=== PATIENT | male | born 1950 | race Caucasian/White ===

== ENCOUNTER 2025-02-03 21:42 | Inpatient (IN) | payer MEDICARE, SELFPAY ==
--- NOTE | ~2025-02-03 | US_ITS ---
US abdomen limited INDICATION: Elevated liver function tests PROCEDURE: Realtime right upper abdominal ultrasound. COMPARISON: No prior studies for comparison. FINDINGS: The pancreas is normal without focal mass or pancreatic ductal dilation. Liver echotexture is increased and somewhat heterogeneous. There is a nodular liver surface, compatible with cirrhosis There is normal directional flow in the portal vein. The gallbladder is normal without stones, gallbladder wall thickening or pericholecystic fluid. Comm on bile duct measures 4 mm. No sonographic Hunter's sign. IMPRESSION: 1: Cirrhosis of the liver. Reviewed, dictated and finalized at location [] IMPRESSION: 1: Cirrhosis of the liver.
--- NOTE | ~2025-02-03 | XR_ITS ---
XR chest 1V portable Ordering provider: Emily Troy APRN History: 74 years Male with . L arm pain FEVER . Comparison: None. FINDINGS: MEDIASTINUM: The cardiac silhouette is not enlarged. LUNGS: No infiltrates, effusions or pneumothorax. OTHER: No free air under the diaphragm. Degenerative changes of the spine. IMPRESSION: No acute cardiopulmonary pathology. Reviewed, dictated and finalized at location A.
--- NOTE | ~2025-02-03 | XR_ITS ---
XR foot LT min 3V Ordering provider: Emily Troy APRN History: . L 2nd and 3rd digit injury . Comparison: None. FINDINGS: BONES: No acute fracture or dislocation. JOINT SPACES: Normal. No tarsal coalition. SOFT TISSUES: Normal. IMPRESSION: No acute osseous abnormality left foot. Reviewed, dictated and finalized at location A.
--- OUTSIDE RECORDS SUMMARY | 2025-02-03 21:44 | XMS_ITS ---
Author Organization [facility] Address [address] [place] [address] Care Team Providers Care Energy Conservation Director Name Role Phone Ankush Sweeney MD Unavailable Unavailable David HAYWARD MD, Douglas Roblero Unavailable [phone] Pcp, Bella Roche Primary Care Provider Unav ailJanki Merino Unavailable QMM & AWV - Vibrance Status:Identified (Enrolling) Start date:01/25/2025 Enrollment reason:Identified using claims or encounter data Case Team Name Relationship Phone Janki Anaay(Responsible Staff) Care Coordinat ion Specialist [phone] Continued Care and Services Coordination
--- OUTSIDE RECORDS SUMMARY | 2025-02-03 21:44 | XMS_ITS | Clinical Summary ---
Author Organization [facility] Address [address] [place] [address] Care Team Providers Care Golf Technician Name Role Phone Ankush Sweeney MD Unavailable Unavailable David HAYWARD MD, Douglas Roblero Unavailable [phone] Pcp, Bella Medina Primary Care Provider Janki Boswell Unavailable Source Comments [facility],non-owned Affiliates and Associated Physician Practices is amultiple site organization consisting of ambulatory clinics and hospital sitesin [place], [place], [place] and [place]. This disclosure is being madepursuant to the Care Everywhere program and may not contain all information available regarding this patient. Last updated 18.[facility] Allergies Active Allergy Reactions Criticality Noted Date Comments Penicillins Swelling 03/26/2010 Medications * Be aware that medications may not be up to date on this document. Alwaysverify current medications with the patient. phenytoin ER (DILANTIN) 100 MG capsuleIndicati ons:Seizure disorder (HCC) Take 2 caps morning, 1 in afternoon, and 2 at night 150 Cap 5 01/31/2014 Active nitroglycerin (NITROSTAT) 0.4 MG tablet Dissolve 1 Tab under the tongue every 5 minutes as needed for Angina. 100 Tab 3 06/29/2014 Active Vitamin D3 (CHOLECALCIFERO L) 2000 UNITS capsule Take 1 (one) capsule by mouth once daily 06/02/2015 Active clorazepate (TRANXENE) 3.75 MG tablet Take 1 Tab by mouth 3 times daily 100 Tab 0 02/07/2016 Active triamcinolone acetonide (KENALOG) 0.1 % cream 09/14/2019 Active primidone (Mysoline) 250 MG tablet 07/22/2022 Active ezetimibe (Zetia) 10 MG tablet Take 1 (one) tablet by mouth once daily 90 tablet 3 04/17/2023 Active diclofenac sodium EC (Voltaren) 50 MG tablet TAKE 1 TABLET BY MOUTH TWICE DAILY 60 tablet 2 01/02/2024 Active aspirin (Aspirin) 81 MG chew tablet Take 1 (one) tablet by mouth nightly as needed for Pain Active atorvastatin (Lipitor) 80 MG tablet Take 1 (one) tablet by mouth at bedtime 90 tablet 4 09/08/2024 Active metoprolol tartrate IR (Lopressor) 50 MG tablet Take 1 (one) tablet by mouth once daily 90 tablet 3 10/26/2024 Active Active Problems Problem Noted Date Diagnosed Date 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 Torn medial meniscus 04/26/2016 Overview (04/26/2016): Spoke with pt to report MRI of left knee and provided pt with contact information for ortho and placed order. COMPLEX RADIAL OBLIQUE TEAR INVOLVING THE POSTERIOR HORN OF THE MEDIAL MENISCUS WITH MILD EXTRUSION OF THE BODY. 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 MULTIPLE SITES OF CARTILAGE TEARING INVOLVING THE PATELLA, DESCRIBED ABOVE. REACTIVE SUBCHONDRAL MARROW EDEMA WITHIN THE MEDIAL TIBIAL PLATEAU. Acute pain of left knee 04/23/2016 BMS to prox circ and SUJIT to mid LAD in 04/2016 Vitamin D deficiency 08/02/2014 Overview (08/02/2014): Vit D level was 18 on labs from Jul 2013. Hypercholesterolemia 08/31/2013 Porokeratosis 07/19/2013 Overview (07/19/2013): Has seen Dr. Artis Vivar and now Dr. Elizabeth Fisher for this condition. Currently on Topicort for steroid. Prostate cancer screening 07/19/2013 Screen for colon cancer 07/19/2013 Benign prostatic hyperplasia 07/19/2013 Overview (02/15/2017): Grade 1/3 on PE of 07/19/13. IMO Update 02/22/2017 Biceps strain 04/29/2013 Seizure disorder 04/03/2012 Overview (01/31/2014): Petit mal seizures per pt hx. Resolved Problems Problem Noted Date Diagnosed Date Resolved Date Partial epilepsy with impair ment of consciousness, intractable 04/30/2018 05/13/2021 Sprain of right wrist 10/23/20172020 Coronary artery disease invo lving pokagon heart 03/10/2017 05/13/2021 History of arthroscopy of le ft knee on 05-14-16 05/21/2016 05/13/2021 Swelling of left knee joint 04/23/2016 05/13/2021 Slipping, tripping and stumb ling without falling due to stepping on object, initial encounter 04/23/2016 05/13/2021 Overview (05/25/2016): IMO Updt 05/25/2016 URI (upper respiratory infection) 08/02/2014 01/04/2015 Need for Tdap vaccination 01/31/2014 Petit mal seizure status 01/31/2014 CAD (coronary artery disease) 07/19/2013 03/10/2017 Overview (07/19/2013): Sees Dr. Sweeney. Has two stents placed. Rt ant descending A and Lt main coronary A. Need for hepatitis C screening test 07/19/2013 01/31/2014 Triceps strain 04/29/2013 05/13/2021 Sprain of ligament of left ankle 03/12/2013 05/13/2021 Proximal circumflex BMS and mid LAD SUJIT in 200704/02/2012 10/03/2015 Contact dermatitis due to poison allie 03/26/2010 09/24/2017 Encounters Date Type Department Care Team Description 01/25/2025 Patient Outreach [facility] - Care Coordination [address] [id number] Janki Anaya from Last 3 Months Immunizations Immunization Administration Dates Next Due COVID PFIZER BIVALENT 12Y+ 30mcg/0.3ML Covid Pfizer primary monoval ent 12+ yr 0.3mL Purple cap 05/13/2021,10/24/2020,10/07/2020 PNEUMOCOCCAL PPSV23 11/13/2021 TDAP (7yrs+) 02/22/2021 Family History Medical History Relation Name Comments Heart Failure Brother 2 DC<55(male) Brother 3 stated one of h is brothers at age 35 with a heart attack DC<55(male) Brother 4 stated another brother at age 42 with a heart attack CAD (Coronary Artery Disease) Brother 5 another brother has 4 stents in his heart CAD (Coronary Artery Disease) Father Heart Failure Father DC<55(male) Father stated his fath er at age 42 with a heart attack Alzheimer's Disease Mother Cancer Sister 2 Relation Name Status Comments Brother 1 (Age 35) coronary t hrombosis Brother 2 Brother 3 Brother 4 Brother 5 Alive Father (Age 42) heart arthur ck Mother Sister 1 (Age 44) cancer Sister 2 Sister 3 Sister 4 Social History Tobacco Use Types Packs/Day Years Used Date Smoking Tobacco: Former Cigarettes 1 09/18/1996 - 08/02/2003 Cigars Smokeless Tobacco: Former Snuff Quit: 07/19/1977 Tobacco Cessation:Counseling Given: Not Answered Alcohol Use Standard Drinks/Week Comments Yes 1 (1 standard drink = 0.6 oz pur e alcohol) socially- seldom PHQ-2 Answer Date Recorded PHQ2 TOTAL SCORE 0 10/21/2022 Sex and Gender Information Value Date Recorded Sex Assigned at Male 03/23/2023 6:12 PM CDT Legal Sex Male 4:27 AM ELECTRICIAN SUPERVISOR [employer]ATION Gender Identity Male 03/23/2023 6:12 PM CDT Sexual Orientation Straight 03/23/2023 6: 12 PM CDT Occupation Industry Job Start Date Job End Date Retired, [employer] Not on file Not on file Not on file Last Filed Vital Signs Vital Sign Reading Time Taken Comments Blood Pressure 136/76 07/20/2024 2:06 PM ELECTRICIAN SUPERVISOR [employer]ATION Pulse 66 07/20/2024 2:06 PM ELECTRICIAN [employer] Temperature 36.5 C (97.7 F) 07/20/2024 2:06 PM ELECTRICIAN SUPER[employer]OR [employer]ATION Respiratory Rate 18 02/09/2023 3:37 PM CDT Oxygen Saturation 95% 07/20/2024 2:06 PM ELECTRICIAN [employer] Inhaled Oxygen Concentration - - Weight 107.3 kg (236 lb 9.6 oz) 07/20/2024 2:06 PM ELECTRICIAN [employer] Height 177.8 cm (5' 10) 05/12/2024 9:29 AM CDT Body Mass Index 33.95 05/12/2024 9:29 AM CDT Plan of Treatment Upcoming Encounters Date Type Department Care Team (Late st Contact Info) Description 07/25/2025 1:40 PM ELECTRICIAN SUPER[employer]OR [employer] Office Visit [facility] [id number] [place] [address], [address] [address] [place] [address] [address] Health Maintenance Due Date Last Done Comments ZOSTER VACCINE (1 of 2) 1998 PROSTATE CA SCREENING 05/04/2022 05/04/2021 , 04/21/2020, 09/24/2017, Additional history exists PNEUMOCOCCAL VACCINE 50+ (2 of 2 - PCV) 11/13/2022 11/13/2021 MEDICARE AWV 12 MONTHS 07/24/2023 07/24/2022, 05/04/2021, 04/21/2020 Respiratory Syncytial Virus (RSV) Vaccine Pt: or over 60 yrs (1 - 1-dose 75+ series) 2023 COVID-19 VACCINE ( - season) 2024 07/24/2022, 05/13/2021, 10/24/2020, Additional history exists DEPRESSION SCREENING 08/25/2024 10/21/2022, 07/24/20 22 INFLUENZA VACCINE (Season Ended) 2025 SCREENING FOR DIABETES 12/25/2027 5, 05/04/2021, 04/21/2020, Additional history exists DTAP/TDAP/TD VACCINES (2 - Td or Tdap) 02/22/2031 02/22/2021 HEPATITIS C SCREENING Completed 07/26/2013 HEPATITIS B VACCINE Aged Out No longe r eligible based on patient's age to complete this topic HIB VACCINE Aged Out No longer eligi ble based on patient's age to complete this topic HPV VACCINE Aged Out No longer eligi ble based on patient's age to complete this topic MENINGOCOCCAL (Group B) VACCINE SHARED DECISION-MAKING Aged Out No longer eligible based on patient's age to complete this topic MENINGOCOCCAL GROUPS A/C/Y/W VACCINE Aged Out No longer eligible based on patient's age to complete this topic Goals Goal Patient Goal Type Associated Problems Recent Progress Patient-Stated? Author Blood Pressure < 140/90 Blood Pressure 136/76(2023 2:06 PM ELECTRICIAN SUPERVISOR [employer]ATION) Yeny Maurer Note: Caring for Your High Blood Pressure Exercise Exercising makes the heart stronger, lowers blood pressure, and keeps you healthy. Check with your provider before starting an exercise program. When starting a physical activity program, begin slowly to avoid injury. Even doing 5 to 10 minutes can be beneficial. Add a few minutes each week till you reach your goal. Choose an activity that fits your fitness level and interests, one that you can do on a regular basis. Exercise activities like running, using weights, going to the gym are one type of physical activity, but day to day activities such as walking, stairs, cutting grass, gardening, and riding a bike or vacuuming are also physical activities. IT ALL COUNTS!!!! Where can I go for more information? [place] [employer] National Center: http://www.americanheart.org 1. In the top header, click C onditions . 2. In the top header, click h igh blood pressure. 3. For a printable blood pressure tracker, scroll toward the bottom of the page to Related Tools, and click H BP Trackers. 2-681-PRX-[place]-1 or ( ) National Heart, Lung and Blood Diana: http://www.nhlbi.nih.gov/health/infoctr/index.htm Exercise 5X per week (30 min per time) Exercise Yeny Maurer Note: The [place] [employer] recommends all adults get a minimum of 150 minutes of moderate physical activity a week. This can be completed as 30 minutes of brisk walking on most days of the week. Even 10 minutes of exercise a day can provide benefit and will add up over the week. If able, try to take the stairs instead of the elevator or park farther away in the parking lot. Start slow and try to increase your amount of activity over several weeks. Exercise will help to improve your cholesterol readings and blood pressure and to be overall healthier. Procedures Procedure Name Priority Date/Time Associated Diagnosis Comments COMPREHENSIVE METABOLIC PANEL Routine 05/04/2021 2:57 PM CDT Essential hypertension PROSTATE SPECIFIC ANTIGEN SCREEN Routine 05/04/2021 2:57 PM CDT Prostate cancer screening HEPATITIS C ANTIBODY Routine 07/26/2013 8:42 AM ELECTRICIAN SUPERVISOR [employer]ATION Physical exam, annual Need for hepatitis C screening test from Last 3 Months or Most Recently Relevant to Health Maintenance Results * (ABNORMAL) COMPREHENSIVE METABOLIC PANEL (05/04/2021 2:57 PM CDT) Glucose 86 70 - 105 mg/dL [facility] INSURANCE BILL BUN 8(L) 8.4 - 25.7 mg/dL [facility] INSURANCE BILL Creatinine 0.76 0.72 - 1.25 mg/dL [facility] INSURANCE BILL eGFR by MDRD >60 mL/min/1.7 3m2 [facility] INSURANCE BILL eGFR by MDRD >60 mL/min/1.7 3m2 [facility] INSURANCE BILL Sodium 139 136 - 145 mmol/L [facility] INSURANCE BILL Potassium 5.0 3.5 - 5.1 mmol/L [facility] INSURANCE BILL Chloride 102 98 - 107 mmol/L [facility] INSURANCE BILL CO2 27 23 - 31 mmol/L [facility] INSURANCE BILL Calcium 9.2 8.4 - 10.4 mg/dL [facility] INSURANCE BILL Protein Total 8.1 6.4 - 8.3 gm/dL [facility] INSURANCE BILL Albumin 3.9 3.2 - 4.6 gm/dL [facility] INSURANCE BILL Bilirubin Total 0.4 0.2 - 1.2 mg/dL [facility] INSURANCE BILL Alkaline Phosphatase 180(H) 40 - 150 U/L [facility] INSURANCE BILL AST 38(H) 5 - 34 U/L [facility] INSURANCE BILL ALT 57 0 - 61 U/L [facility] INSURANCE BILL Blood BLOOD SPECIMEN / Unknown 05/04/2021 2:57 PM CDT 05/04/2021 Narrative Resulting Agency Comment Lab Testing performed at: [address] Rohan [place] [id number] Vinicio Diane III, LAB - CHEMISTRY ORDERABLES Final Result Performing Organization Address [facility] Co de Phone Number [facility] INSURANCE BILL [address] [place] [address] * PROSTATE SPECIFIC ANTIGEN SCREEN (05/04/2021 2:57 PM CDT) [facility] PSA 0.96 0.00 - 4.00 ng/mL [facility] INSURANCE BILL Blood BLOOD SPECIMEN / Unknown 05/04/2021 2:57 PM CDT 05/04/2021 Narrative Resulting Agency Comment Lab Testing performed at: [address] Rohan [place] [id number] Vinicio Diane III, DO LAB - CHEMISTRY ORDERABLES Final Result Performing Organization Address [facility]/ZIP Co de Phone Number [facility] INSURANCE BILL [address] [place] [address] * HEPATITIS C ANTIBODY (07/26/2013 8:42 AM ELECTRICIAN SUPERVISOR [employer]ATION) [facility] Hepatitis C Antibody NON-REACTI VE NON-REACT [facility] Signal to Cut-Off 0.10 <1.00 [facility] Comment: Test Performed at: [facility] [id number] [place] [address] KATIE PRIDE DO,MPH Blood specimen (specimen) BLOOD SPECIMEN / Unknown 07/26/2013 8:42 AM ELECTRICIAN SUPERVISOR [employer]STATION 07/26/2013 8:43 AM ELECTRICIAN SUPERVISOR [employer]STATION Wilfrido Mora DO LAB - CHEMISTRY ORDERABLES Final Result [facility] [id number] [place] [address] from Last 3 Months or Most Recently Relevant to Health Maintenance Insurance [facility] MEDICARE ANTHEM MEDICARE Advance Directives * FULL RESUSCITATION (Latest Code Status on File) Date Activated Date Inactivated Comments 09/09/2012 2:12 AM 09/09/2012 4:21 PM Care Teams Golf Technician Relationship Specialty Start Date End Date Pcp, Bella Medina PCP - General 03/21/23 Ankush Sweeney MD [employer] Cardiovascular Disease 04/02/12 Douglas Hernandez III, MD [address] [place] [address] Neurologist Neurology 02/06/15 Janki Anaya Care Coordination Specialist Care Management 01/25/25
--- OUTSIDE RECORDS SUMMARY | 2025-02-03 21:44 | XMS_ITS | Referral Summary ---
Author Organization [facility] Address [address] [place] [address] Care Team Providers Care Rug Washer Name Role Phone Benedicto HAYWARD DO, James R. Primary Care Provider [phone] David HAYWARD MD, Douglas Anglin [phone] Encounters Date Type Department Care Team Description 12/30/2024 Telephone [facility] Epilepsy [address] [place] [address] [place] [id number] Douglas Hernandez III, MD Post Hospitalization; Med Management 12/24/2024 1:43 PM CDT - 12/29/2024 6:34 PM CDT Hospital Encounter [facility] [address] [place] [address] Colby Grove MD Huang, MD Arleen Pacheco Carol H., MD Vest, MD Ag Rocha, MD Harris King, initial encounter (Primary Dx); Partial epilepsy with impairment of consciousness, intractable (HCC) Discharge Disposition: Discharge to an Rehab facility 12/27/2024 Orders Only [facility] Orthopaedic Surgery [address] [place] [address] [place] [address] Holly Fernández MD Closed nondisplaced fracture of right clavicle, unspecified part of clavicle, initial encounter (Primary Dx) 12/02/2024 2:30 PM CDT Telemedicine [facility] Epilepsy [address] [place] [address] [place] [address] Douglas Hernandez III, MD Partial epilepsy with impairment of consciousness, intractable (HCC) (Primary Dx) from Last 3 Months Allergies Active Allergy Reactions Criticality Noted Date Comments Penicillins Swelling Medium 04/26/2015 Medications nitroglycerin (NITROSTAT) 0.[address] 1 tablet (0.4 mg total) under the tongue every 5 (five) minutes as needed 4 Active metoprolol tartrate (LOPRESSOR) 50 mg immediate release tablet Take 1 tablet (50 mg total) by mouth daily 3 Active atorvastatin (LIPITOR) 80 mg tablet Take 1 tablet (80 mg total) by mouth nightly at bedtime. 3 Active aspirin 81 mg enteric coated tablet Take 1 tablet (81 mg total) by mouth daily Active cholecalciferol (VITAMIN D-3) 2000 unit capsule Take 1 capsule (2,000 Units total) by mouth daily 5 Active cyclobenzaprine (FLEXERIL) 5 mg tablet Take 1 tablet (5 mg total) by mouth 3 (three) times a day 5 Active HYDROcodone-acet aminophen (NORCO) 7.5-325 mg per tabletIndication s:Pain Take 1 tablet by mouth every 4 (four) hours as needed for pain 5 Active lidocaine (LIDODERM) 5 % Place 1 patch on the skin daily for 12 hours Remove & discard patch within 12 hours or as directed by . 5 Active polyethylene glycol (MIRALAX) 17 gram/dose bulk powderIndication s:constipation Take 17 g by mouth daily 5 Active primidone (MYSOLINE) 250 mg tabletIndication s:Partial epilepsy with impairment of consciousness, intractable (HCC) Take 2 tablets (500 mg total) by mouth 2 (two) times a day 360 tablet 3 5 01/01/20 26 Active phenytoin ER (DILANTIN) 100 mg ER capsuleIndicatio ns:Partial epilepsy with impairment of consciousness, intractable (HCC) Take 1 capsule (100 mg total) by mouth 3 (three) times a day 270 each 3 5 01/01/20 26 Active Active Problems Problem Noted Date Diagnosed Date Seizure disorder 12/25/2024 Assessment & Plan (12/29/2024 7:52 AM CDT): Hx of temporal lobe epileptic seizures, on meds , with good control , last episode years ago, follows with neurology. -Decrease phenytoin to 100mg TID -Continue primidone at home dose 500mg BID -Continue home clorazepate 3.75 tid (our pharmacy doesn't have clorazepate, pt needs to bring home supply.) -> can resume at home, pt does not have anyone to bring to the hospital -Follow his neurologist Dr Hernandez at [facility] on discharge - neurology consulted, refer to [facility] Assessment & Plan (12/28/2024 7:39 AM CDT): Hx of temporal lobe epileptic seizures, on meds , with good control , last episode years ago, follows with neurology. -Decrease phenytoin to 100mg TID -Continue primidone at home dose 500mg BID -Continue home clorazepate 3.75 tid (our pharmacy doesn't have clorazepate, pt needs to bring home supply.) -> can resume at home, pt does not have anyone to bring to the hospital -Follow his neurologist Dr Hernandez at [facility] on discharge - neurology consulted, refer to [facility] Assessment & Plan (12/27/2024 5:02 PM CDT): Hx of temporal lobe epileptic seizures, on meds , with good control , last episode years ago, follows with neurology. -Decrease phenytoin to 100mg TID -Continue primidone at home dose 500mg BID -Continue home clorazepate 3.75 tid (our pharmacy doesn't have clorazepate, pt needs to bring home supply.) -> can resume at home, pt does not have anyone to bring to the hospital -Follow his neurologist Dr Hernandez at [facility] on discharge - neurology consulted, refer to fall plan Assessment & Plan (12/26/2024 1:26 PM CDT): Hx of temporal lobe epileptic seizures, on meds , with good control , last episode years ago, follows with neurology. - Cw home meds dilantin ER 200 mg am, 100 mg afternoon, 200 mg evening, primidone 500 bid as per (but 250 bid as per last neuro note) - hold clorazepate 3.75 tid (our pharmacy doesn't have clorazepate and pt does not have home supply - neurology consulted, refer to fall plan Assessment & Plan (12/25/2024 10:46 AM CDT): Hx of temporal lobe epileptic seizures, on meds , with good control , last episode years ago, follows with neurology. - Cw home meds dilantin ER 200 mg am, 100 mg afternoon, 200 mg evening, primidone 500 bid as per (but 250 bid as per last neuro note) and clorazepate 3.75 tid (our pharmacy doesn't have clorazepate an pt dont have anyone who can bring it ) Cw to follow with neuro outpatient Assessment & Plan (12/25/2024 2:16 AM CDT): Hx of temporal lobe epileptic seizures, on meds , with good control , last episode years ago, follows with neurology. - Cw home meds dilantin ER 200 mg am, 100 mg afternoon, 200 mg evening, primidone 500 bid as per (but 250 bid as per last neuro note) and clorazepate 3.75 tid (our pharmacy doesn't have clorazepate an pt dont have anyone who can bring it ) Cw to follow with neuro outpatient Right clavicle fracture 12/25/2024 Assessment & Plan (12/29/2024 7:52 AM CDT): Ortho consult appreciated, recommended nonop management WB Status: Coffee cup weight bearing right upper extremity Immobilization: Sling for comfort if desired Activity: Ambulate with assist -tylenol QID, lido patch, ibuprofen PRN, pt wants to avoid narcotics -Follow [facility] on discharge Assessment & Plan (12/28/2024 7:39 AM CDT): Ortho consult appreciated, recommended nonop management WB Status: Coffee cup weight bearing right upper extremity Immobilization: Sling for comfort if desired Activity: Ambulate with assist -tylenol QID, lido patch, ibuprofen PRN, pt wants to avoid narcotics -Follow [facility] on discharge Assessment & Plan (12/27/2024 5:02 PM CDT): Ortho consult appreciated, recommended nonop management WB Status: Coffee cup weight bearing right upper extremity Immobilization: Sling for comfort if desired Activity: Ambulate with assist -tylenol QID, lido patch, ibuprofen PRN, pt wants to avoid narcotics -Follow [facility] on discharge Assessment & Plan (12/26/2024 1:26 PM CDT): Ortho consult appreciated, recommended nonop management WB Status: Coffee cup weight bearing right upper extremity Immobilization: Sling for comfort if desired Activity: Ambulate with assist -tylenol QID, lido patch, ketorlac IV PRN, pt wants to avoid narcotics Follow [facility] on discharge Assessment & Plan (12/25/2024 10:46 AM CDT): Ortho consult appreciated, recommended nonop management WBAT RUE, WBAT LUE, WBAT RLE, WBAT LLE Sling for comfort -tylenol QID, lido patch, ketorlac IV PRN, pt wants to avoid narcotics Assessment & Plan (12/25/2024 2:16 AM CDT): Ortho consult appreciated WBAT RUE, WBAT LUE, WBAT RLE, WBAT LLE Sling for comfort Tylenol prn, lidocaine patch , pt wants to avoid narcotics CAD (coronary artery disease) 12/25/2024 Assessment & Plan (12/29/2024 7:52 AM CDT): Cw home aspirin -hold metoprolol BID given normotensive Assessment & Plan (12/28/2024 7:39 AM CDT): Cw home aspirin -hold metoprolol BID given normotensive Assessment & Plan (12/27/2024 5:02 PM CDT): Cw home aspirin -hold metoprolol BID given normotensive Assessment & Plan (12/26/2024 4:54 PM CDT): Cw home aspirin -hold metoprolol BID given normotensive Assessment & Plan (12/25/2024 10:46 AM CDT): Cw home aspirin , metoprolol Assessment & Plan (12/25/2024 2:16 AM CDT): Cw home aspirin , metoprolol Hyperlipidemia, unspecified 12/25/2024 Assessment & Plan (12/29/2024 7:52 AM CDT): Cw home statin , stopped ezetimibe as per pt Assessment & Plan (12/28/2024 7:39 AM CDT): Cw home statin , stopped ezetimibe as per pt Assessment & Plan (12/27/2024 5:02 PM CDT): Cw home statin , stopped ezetimibe as per pt Assessment & Plan (12/26/2024 1:26 PM CDT): Cw home statin , stopped ezetimibe as per pt Assessment & Plan (12/25/2024 10:46 AM CDT): Cw home statin , stopped ezetimibe as per pt Assessment & Plan (12/25/2024 2:16 AM CDT): Cw home statin , stopped ezetimibe as per pt Fall, initial encounter 12/24/2024 Assessment & Plan (12/29/2024 5:31 PM CDT): Hx of frequent mechanical falls recently , had 2 falls today and the other fall few weeks ago, denies LOC, imaging negative other then mild dislocation of the right claviculae Patient fell at home while he was walking in the morning, states his feet gave out. He lost fell 3 weeks ago while he was walking down the stairs and he slipped. He lives at home alone, does not use a cane or walker. Denies any lower extremity weakness. Denies any bowel or bladder issue Uses alcohol socially -EKG NSR -TSH normal, A1c 5 Mechanical fall. He has new ataxia, dizziness, ataxia of upper extremities. High concern could be side effects of antiepileptic medication, especially primodone can cause ataxia as side effect -Neurology consulted. Discussed with patient's neurologist Dr. Hernandez. Rec decrease phenytoin to 100 mg t.i.d., increase primidone back to home dose 500 mg b.i.d.. Continue home clorazepate 3.75 tid (our pharmacy doesn't have clorazepate, pt needs to bring home supply.) -> can resume at home, pt does not have anyone to bring to the hospital -MRI brain normal He is medically ready for discharge. Discharge to [facility] today. Assessment & Plan (12/28/2024 4:40 PM CDT): Hx of frequent mechanical falls recently , had 2 falls today and the other fall few weeks ago, denies LOC, imaging negative other then mild dislocation of the right claviculae Patient fell at home while he was walking in the morning, states his feet gave out. He lost fell 3 weeks ago while he was walking down the stairs and he slipped. He lives at home alone, does not use a cane or walker. Denies any lower extremity weakness. Denies any bowel or bladder issue Uses alcohol socially -EKG NSR -TSH normal, A1c 5 Mechanical fall. He has new ataxia, dizziness, ataxia of upper extremities. High concern could be side effects of antiepileptic medication, especially primodone can cause ataxia as side effect -Neurology consulted. Discussed with patient's neurologist Dr. Hernandez. Rec decrease phenytoin to 100 mg t.i.d., increase primidone back to home dose 500 mg b.i.d.. Continue home clorazepate 3.75 tid (our pharmacy doesn't have clorazepate, pt needs to bring home supply.) -> can resume at home, pt does not have anyone to bring to the hospital -MRI brain normal He is medically ready for discharge. Pending placement to inpatient rehab. Assessment & Plan (12/27/2024 5:02 PM CDT): Hx of frequent mechanical falls recently , had 2 falls today and the other fall few weeks ago, denies LOC, imaging negative other then mild dislocation of the right claviculae Patient fell at home while he was walking in the morning, states his feet gave out. He lost fell 3 weeks ago while he was walking down the stairs and he slipped. He lives at home alone, does not use a cane or walker. Denies any lower extremity weakness. Denies any bowel or bladder issue Uses alcohol socially -EKG NSR -TSH normal, A1c 5 Mechanical fall. He has new ataxia, dizziness, ataxia of upper extremities. High concern could be side effects of antiepileptic medication, especially primodone can cause ataxia as side effect -Neurology consulted. Discussed with patient's neurologist Dr. Hernandez. Rec decrease phenytoin to 100 mg t.i.d., increase primidone back to home dose 500 mg b.i.d.. Continue home clorazepate 3.75 tid (our pharmacy doesn't have clorazepate, pt needs to bring home supply.) -> can resume at home, pt does not have anyone to bring to the hospital -Obtain MRI brain. Per neuro does not need to hold up discharge. Plan -Obtain MRI brain -B12 390, started B12 PO daily supplementation -PT/OT-> rec IPR, he agrees -Fall precautions Assessment & Plan (12/26/2024 1:26 PM CDT): Hx of frequent mechanical falls recently , had 2 falls today and the other fall few weeks ago, denies LOC, imaging negative other then mild dislocation of the right claviculae Patient fell at home while he was walking in the morning, states his feet gave out. He lost fell 3 weeks ago while he was walking down the stairs and he slipped. He lives at home alone, does not use a cane or walker. Denies any lower extremity weakness. Denies any bowel or bladder issue Uses alcohol socially -EKG NSR -TSH normal, A1c 5 Mechanical fall. He has new ataxia, dizziness, choreiform movements of upper extremities. -Neurology consulted , symptoms could be related to anti epileptics adverse effect Plan -follow neuro recs -B12 390, will start supplementation -PT/OT -Fall precautions Assessment & Plan (12/25/2024 10:46 AM CDT): Hx of frequent mechanical falls recently , had 2 falls today and the other fall few weeks ago, denies LOC, imaging negative other then mild dislocation of the right claviculae Patient fell at home while he was walking in the morning, states his feet gave out. He lost fell 3 weeks ago while he was walking down the stairs and he slipped. He lives at home alone, does not use a cane or walker. Denies any lower extremity weakness. Denies any bowel or bladder issue Uses alcohol socially -EKG NSR Likely mechanical fall, we will evaluate for possible neuropathy Plan Obtain A1c, RPR, TSH, B12 PT/OT Fall precautions Assessment & Plan (12/25/2024 2:16 AM CDT): Hx of frequent mechanical falls recently , had 2 falls today and the other fall few weeks ago, denies LOC, imaging negative other then mild dislocation of the right claviculae PT/OT Fall precautions Partial epilepsy with impair ment of consciousness, intractable 04/30/2018 Social History Tobacco Use Types Packs/Day Years Used Date Smoking Tobacco: Former Smokeless Tobacco: Never Alcohol Use Standard Drinks/Week Comments Yes 0 (1 standard drink = 0.6 oz pur e alcohol) rarely AUDIT-C Answer Date Recorded Q1: How often do you have a drink containing alc ohol? 2-4 times a month 07/29/2023 Q2: How many drinks containi ng alcohol do you have on a typical day when you are drinking? 1 or 2 07/29/2023 Q3: How often do you have si x or more drinks on one occasion? Never 07/29/2023 Personal Safety Answer Date Recorded Have you ever been in or are you currently in a harmful physical or emotional relationship or is someone making you feel afraid or unsafe? Denies 12/24/2024 Sex and Gender Information Value Date Recorded Sex Assigned at Not on file Legal Sex Male 6:20 PM [employer] Gender Identity Not on file Sexual Orientation Not on file Last Filed Vital Signs Vital Sign Reading Time Taken Comments Blood Pressure 155/75 12/29/2024 3:23 PM CDT Pulse 69 12/29/2024 3:23 PM CDT Temperature 36.9 C (98.4 F) 12/29/2024 3:23 PM CDT Respiratory Rate 20 12/29/2024 3:23 PM CDT Oxygen Saturation 99% 12/29/2024 3:23 PM CDT Inhaled Oxygen Concentration - - Weight 99.7 kg (219 lb 11.2 oz) 025 10:37 PM CDT Height 180.3 cm (5' 11) 12/24/2024 10: 37 PM CDT Body Mass Index 30.64 12/24/2024 10:37 PM CDT Plan of Treatment Not on file Procedures Procedure Name Priority Date/Time Associated Diagnosis Comments MRI BRAIN W WO CONTRAST IP Routine 12/27/2024 7:25 PM CDT DRUGS OF ABUSE SCREEN, URINE WITHOUT CONFIRMATION STAT 12/24/2024 8:39 PM CDT URINALYSIS AND REFLEX TO MICROSCOPIC AND CULTURE STAT 12/24/2024 8:39 PM CDT XR CLAVICLE BILATERAL COMPLETE ED 12/24/2024 8:[address] HEAD WO CONTRAST ED 12/24/2024 6 :28 PM CDT XR ELBOW RIGHT 2 OR MORE VIEWS ED 12/24/2024 5:48 PM CDT XR ELBOW LEFT 2 OR MORE VIEWS ED 12/24/2024 5:48 PM CDT XR KNEE RIGHT 3 VIEWS ED 12/24/2024 5:48 PM CDT XR KNEE LEFT 3 VIEWS ED 12/24/2024 5:48 PM CDT XR SHOULDER RIGHT 2 OR MORE VIEWS ED 12/24/2024 5:48 PM CDT TROPONIN I HIGH-SENSITIVITY 2-HOUR Timed 12/24/2024 4:[address] HEAD WO CONTRAST ED Urgent/IP Urgent 12/24/2024 3:11 PM CDT ECG 12-LEAD STAT 12/24/2024 2:35 PM CDT TSH STAT 12/24/2024 2:33 PM CDT HEMOGLOBIN A1C STAT 12/24/2024 2:33 PM CDT VITAMIN B12 STAT 12/24/2024 2:33 PM CDT EGFR STAT 12/24/2024 2:33 PM CDT DIFFERENTIAL AUTO STAT 12/24/2024 2:3 3 PM CDT PRO B-TYPE NATRIURETIC PEPTIDE STAT 12/24/2024 2:33 PM CDT TROPONIN I HIGH-SENSITIVITY SERIES (BASELINE, 2HR, 4HR, 6HR) STAT 12/24/2024 2:33 PM CDT PHOSPHORUS Routine 12/24/2024 2:33 PM CDT MAGNESIUM Routine 12/24/2024 2:33 PM CDT BASIC METABOLIC PANEL STAT 12/24/2024 2:33 PM CDT CBC WITH AUTO DIFFERENTIAL STAT 12/24/2024 2:33 PM CDT PHENYTOIN LEVEL, TOTAL STAT 12/24/2024 2:33 PM CDT XR PELVIS 1 OR 2 VIEWS ED Urgent/IP Urgent 12/24/2024 2:31 PM CDT from Last 3 Months Results * MRI Brain W WO Contrast (12/27/2024 7:25 PM CDT) Anatomical Region Laterality Modality Head and Neck N/A Magnetic Resonan ce 12/28/2024 9:44 AM CDT Impressions 12/28/2024 11:49 AM CDT No acute intracranial findings to account for patient's symptoms Dictated by: Jaime Gregory M.D. The radiology attending physician has personally reviewed this study, and had reviewed and/or edited this written report and agrees with it. Electronically signed by: Heath Wu M.D. Narrative 12/28/2024 11:49 AM CDT EXAMINATION: Magnetic resonance imaging (MRI) of the brain and brainstem without and with contrast HISTORY: 74 years-old Male with Ataxia. TECHNIQUE: Multiplanar multi-weighted MRI of the brain and brainstem was performed without and with intravenous contrast using the general brain protocol. Contrast information: 20 mL Gadoterate Meglumine IV COMPARISON: CT head 12/24/2024. MRI brain 10/10/2017. FINDINGS: Generalized parenchymal volume loss corresponding prominence of the ventricular system. Scattered periventricular as well as deep white matter T2/FLAIR hyperintensities, most consistent with mild chronic microvascular ischemic changes. The scalp and calvarium are normal. The superior sagittal sinus demonstrates normal venous flow. The corpus callosum is normal in shape and signal intensity. The posterior fossa is unremarkable. The pituitary and sella are normal. The brainstem and craniocervical junction are unremarkable. Diffusion weighted images reveal no hyperintensities to suggest acute cerebral infarction. The susceptibility weighted sequences reveal no evidence of acute or chronic hemorrhage. The paranasal sinuses are normal. The visualized portions of the mastoids are unremarkable. Changes prior bilateral lens surgery. Normal flow voids are demonstrated in the carotid arteries and basilar artery. There is no abnormal contrast enhancement. Procedure Note Heath Wu MD - 12/28/2024 EXAMINATION: Magnetic resonance imaging (MRI) of the brain and brainstem without and with contrast HISTORY: 74 years-old Male with Ataxia. TECHNIQUE: Multiplanar multi-weighted MRI of the brain and brainstem was performed without and with intravenous contrast using the general brain protocol. Contrast information: 20 mL Gadoterate Meglumine IV COMPARISON: CT head 12/24/2024. MRI brain 10/10/2017. FINDINGS: Generalized parenchymal volume loss corresponding prominence of the ventricular system. Scattered periventricular as well as deep white matter T2/FLAIR hyperintensities, most consistent with mild chronic microvascular ischemic changes. The scalp and calvarium are normal. The superior sagittal sinus demonstrates normal venous flow. The corpus callosum is normal in shape and signal intensity. The posterior fossa is unremarkable. The pituitary and sella are normal. The brainstem and craniocervical junction are unremarkable. Diffusion weighted images reveal no hyperintensities to suggest acute cerebral infarction. The susceptibility weighted sequences reveal no evidence of acute or chronic hemorrhage. The paranasal sinuses are normal. The visualized portions of the mastoids are unremarkable. Changes prior bilateral lens surgery. Normal flow voids are demonstrated in the carotid arteries and basilar artery. There is no abnormal contrast enhancement. IMPRESSION: No acute intracranial findings to account for patient's symptoms Dictated by: Jaime Gregory M.D. The radiology attending physician has personally reviewed this study, and had reviewed and/or edited this written report and agrees with it. Electronically signed by: Heath Wu M.D. Tessa Almonte MD IM MRI PROCEDURES Fin al Result * Urinalysis reflex to microscopic and culture Urine (12/24/2024 8:39 PM CDT) Color, ur Straw Yellow Clarity, ur Clear Clear [facility] Specific gravity, ur 1.011 1.003 - 1.030 [facility] pH, urine 6.5 [facility] Comment: Interpretive Data U rine pH is affected by diet, medications, systemic acid-base disturbances, and renal tubular function. pH may affect urinary stone formation. For example, urine pH below 6.0 may help reduce the tendency for calcium phosphate stones and pH greater than 6.0 may reduce the tendency for uric acid stone formation. Source: [employer] Current Interpretive Data was last revised on 2017 Protein, ur ql Negative Negative [facility] Glucose, ur ql Negative Negative [facility] Ketones, ur Negative Negative [facility] Bilirubin, ur Negative Negative [facility] Blood, ur Negative Negative [facility] Urobilinogen, ur <2.0 <2.0 mg/dL [facility] Nitrite, ur Negative Negative [facility] Leukocyte esterase, ur Negative Negative [facility] UA reflex comment Reflex conditions for microscopic UA and culture not met. [facility] Urine 12/24/2024 8:39 PM CDT 12/24/2024 8:44 PM CDT Hubert Ulrich MD LAB MICROBIOLOGY - GENERAL ORDERABLES Final Result [facility] Department [place] [address] * (ABNORMAL) Drugs of Abuse Screen, Urine without Confirmation (12/24/2024 8:39 PM CDT) Amphetamine, ur Not Detected CutOff 500ng/mL Comment: Interpretive Data - Amphetamines: Samples containing greater than 500 ng/mL d-methamphetamine or other cross-reacting amphetamine compounds are reported as positive. Amphetamine immunoassays are subject to significant false positive rates due to cross-reactivity of non-amphetamine drugs. Confirmatory testing required for definitive results. Current Interpretive Data was last reviewed 2023. Barbiturates, ur Screen Positive, presumptive (A) CutOff 200ng/mL [facility] Comment: Interpretive Data - Barbiturates: Samples containing greater than 200 ng/mL secobarbital or other cross-reacting barbiturate compounds are reported as positive. False positive and false negative results are possible. Confirmatory testing required for definitive results. Current Interpretive Data was last reviewed 2023. Benzodiazepines, ur Screen Positive, presumptive (A) CutOff 100ng/mL [facility] Comment: Interpretive Data - Benzodiazepines: Samples containing greater than 100 ng/mL nordiazepam or other cross-reacting compounds are reported as positive. False positive and false negative results are possible. Confirmatory testing required for definitive results. Current Interpretive Data was last reviewed 2023. Cannabinoids, ur Not Detected CutOff 50 ng/mL [facility] Comment: Interpretive Data - Cannabinoids: Samples containing greater than 50 ng/mL delta-9 THC -COOH or other cross- reacting compounds are reported as positive. False positive and false negative results are possible. Confirmatory testing required for definitive results. Current Interpretive Data was last reviewed 2023. Cocaine, ur Not Detected CutOff 150ng/mL [facility] Comment: Interpretive Data - Cocaine: Samples containing greater than 150 ng/mL benzoylecgonine or other cross- reacting compounds are reported as positive. False positive and false negative results are possible. Confirmatory testing required for definitive results. Current Interpretive Data was last reviewed 2023. Fentanyl, Ur Not Detected CutOff 5 ng/mL [facility] Comment: Interpretive Data - Fentanyl: Samples containing greater than 5 ng/mL norfentanyl, fentanyl, or other cross-reacting fentanyl compounds are reported as positive. False positive and false negative results are possible. Confirmatory testing required for definitive results. Current Interpretive Data was last reviewed 2023. Methadone, ur Not Detected CutOff 300ng/mL [facility] Comment: Interpretive Data - Methadone: Samples containing greater than 300 ng/mL d,l-methadone or other cross-reacting compounds are reported as positive. False positive and false negative results are possible. Confirmatory testing required for definitive results. Current Interpretive Data was last reviewed 2023. Opiates, ur Not Detected CutOff 300ng/mL [facility] Comment: Interpretive Data - Opiates: Samples containing greater than 300 ng/mL morphine or other cross-reacting compounds are reported as positive. False positive and false negative results are possible. Confirmatory testing required for definitive results. Current Interpretive Data was last reviewed 2023. Oxycodone, ur Not Detected CutOff 100ng/mL [facility] Comment: Interpretive Data - Oxycodone: Samples containing greater than 100 ng/mL oxycodone or other cross-reacting compounds are reported as positive. False positive and false negative results are possible. Confirmatory testing required for definitive results. Current Interpretive Data was last reviewed 2023. Phencyclidine, ur Not Detected CutOff 25 ng/mL [facility] Comment: Interpretive Data - Phencyclidine: Samples containing greater than 25 ng/mL phencyclidine or other cross-reacting compounds are reported as positive. False positive and false negative results are possible. Confirmatory testing required for definitive results. Current Interpretive Data was last reviewed 2023. Urine Creatinine 46 mg/dL [facility] Comment: Interpretive Data Urine Creatinine: < 10 mg/dL is extremely dilute = or > 10 but < 20 mg/dL is dilute = or > 20 mg/dL is normal Current Interpretive Data was last revised on 2017. Urine 12/24/2024 8:39 PM CDT 12/24/2024 8:55 PM CDT N[facility]ative [facility] - 12/24/2024 9:42 PM CDT Drug of Abuse screening is performed by immunoassay for medical purposes only. This is not to be used for Pain Management purposes. us Hubert Ulrich MD LAB URINE ORDERABLES Final Result [facility] Department [place] [address] * XR Clavicle Bilateral Complete (12/24/2024 8:10 PM CDT) Anatomical Region Laterality Modality Clavicle, Chest Bilateral Computed Radiogr aphy 12/24/2024 8:19 PM CDT Impressions 12/24/2024 9:06 PM CDT Redemonstrated minimally displaced intra-articular fracture of the distal 3rd of the right clavicle. No fracture is seen within the left clavicle. The acromioclavicular joint spaces are preserved. Dictated by: Michael Abarca MD The radiology attending physician has personally reviewed this study, and had reviewed and/or edited this written report and agrees with it. Electronically signed by: Gavin Doan M.D. Narrative 12/24/2024 9:06 PM CDT EXAMINATION: XR CLAVICLE BILATERAL COMPLETE HISTORY: post-op COMPARISON: 12/24/2024, 5:32 PM Procedure Note Gavin Doan MD - 12/24/2024 EXAMINATION: XR CLAVICLE BILATERAL COMPLETE HISTORY: post-op COMPARISON: 12/24/2024, 5:32 PM IMPRESSION: Redemonstrated minimally displaced intra-articular fracture of the distal 3rd of the right clavicle. No fracture is seen within the left clavicle. The acromioclavicular joint spaces are preserved. Dictated by: Michael Abarca MD The radiology attending physician has personally reviewed this study, and had reviewed and/or edited this written report and agrees with it. Electronically signed by: Gavin Doan M.D. Marilyn Bacon MD IMG XR PROCEDURES Final Result * CT Head WO Contrast (12/24/2024 6:28 PM CDT) Anatomical Region Laterality Modality Head and Neck N/A Computed Tomogra phy 12/24/2024 6:31 PM CDT Impressions 12/24/2024 6:53 PM CDT No acute intracranial abnormality. Dictated by: Vasquez Hussein MD PHD The radiology attending physician has personally reviewed this study, and had reviewed and/or edited this written report and agrees with it. Electronically signed by: Jaiden Mcduffie MD Narrative 12/24/2024 6:53 PM CDT EXAMINATION: CT head without contrast HISTORY: Ground-level fall TECHNIQUE: CT of the head was performed with images acquired from skull base to vertex without intravenous contrast. COMPARISON: 12/24/2024 FINDINGS: There is diffuse cerebral volume loss with mild dilatation of the lateral and third ventricles. Periventricular white matter hypoattenuation compatible with sequelae of small vessel ischemic disease. No large territorial infarct. No scalp hematoma. There is no acute intracranial hemorrhage. Ventricles are of normal size and morphology. No mass effect or midline shift is present. The pino-white matter differentiation is normal. Lens replacements. The visualized portions of the mastoids are normal. The visualized portions of the paranasal sinuses are normal. No fractures are identified. Procedure Note Jaiden Mcduffie MD - 12/24/2024 EXAMINATION: CT head without contrast HISTORY: Ground-level fall TECHNIQUE: CT of the head was performed with images acquired from skull base to vertex without intravenous contrast. COMPARISON: 12/24/2024 FINDINGS: There is diffuse cerebral volume loss with mild dilatation of the lateral and third ventricles. Periventricular white matter hypoattenuation compatible with sequelae of small vessel ischemic disease. No large territorial infarct. No scalp hematoma. There is no acute intracranial hemorrhage. Ventricles are of normal size and morphology. No mass effect or midline shift is present. The pino-white matter differentiation is normal. Lens replacements. The visualized portions of the mastoids are normal. The visualized portions of the paranasal sinuses are normal. No fractures are identified. IMPRESSION: No acute intracranial abnormality. Dictated by: Vasquez Hussein MD PHD The radiology attending physician has personally reviewed this study, and had reviewed and/or edited this written report and agrees with it. Electronically signed by: Jaiden Mcduffie MD us Mars Sharma MD IMG CT PROCEDURES Fi nal Result * XR Knee Right 3 Views (12/24/2024 5:48 PM CDT) Anatomical Region Laterality Modality Lower Extremities, Knee Right Computed Radiography 12/24/2024 6:06 PM CDT Impressions 12/24/2024 7:13 PM CDT FINDINGS/IMPRESSION: RIGHT ELBOW: No priors for comparison. No acute fractures. No definite right elbow effusion. There is a prominent skinfold along the posterior aspect of the distal right humerus. LEFT ELBOW: No priors for comparison. No acute fractures. No elbow effusion. RIGHT SHOULDER: Outside hospital CT dated 03/17/2023. Acute mildly displaced intra-articular fracture of the distal third of the right clavicle. Normal appearance of the glenohumeral joint. Normal alignment of the right shoulder. Mild linear atelectasis in the right lung base. Atherosclerotic vascular calcifications are noted in the neck. LEFT KNEE: No priors for comparison. No left knee effusion. No acute fractures. Mild tricompartmental left knee osteoarthritis. Atherosclerotic vascular calcifications are noted in the left leg. RIGHT KNEE: No priors for comparison. No effusion or fractures. Mild patellofemoral osteoarthritis. Atherosclerotic vascular calcifications are noted in the right leg. Dictated by: Chio Melchor MD The radiology attending physician has personally reviewed this study, and had reviewed and/or edited this written report and agrees with it. Electronically signed by: Gavin Doan M.D. Narrative 12/24/2024 7:13 PM CDT EXAMINATION: XR ELBOW RIGHT 2 VIEWS, XR SHOULDER RIGHT 2 OR MORE VIEWS, XR KNEE LEFT 3 VIEWS, XR KNEE RIGHT 3 VIEWS, XR ELBOW LEFT 2 VIEWS HISTORY: Fall Procedure Note Gavin Doan MD - 12/24/2024 EXAMINATION: XR ELBOW RIGHT 2 VIEWS, XR SHOULDER RIGHT 2 OR MORE VIEWS, XR KNEE LEFT 3 VIEWS, XR KNEE RIGHT 3 VIEWS, XR ELBOW LEFT 2 VIEWS HISTORY: Fall IMPRESSION: FINDINGS/IMPRESSION: RIGHT ELBOW: No priors for comparison. No acute fractures. No definite right elbow effusion. There is a prominent skinfold along the posterior aspect of the distal right humerus. LEFT ELBOW: No priors for comparison. No acute fractures. No elbow effusion. RIGHT SHOULDER: Outside hospital CT dated 03/17/2023. Acute mildly displaced intra-articular fracture of the distal third of the right clavicle. Normal appearance of the glenohumeral joint. Normal alignment of the right shoulder. Mild linear atelectasis in the right lung base. Atherosclerotic vascular calcifications are noted in the neck. LEFT KNEE: No priors for comparison. No left knee effusion. No acute fractures. Mild tricompartmental left knee osteoarthritis. Atherosclerotic vascular calcifications are noted in the left leg. RIGHT KNEE: No priors for comparison. No effusion or fractures. Mild patellofemoral osteoarthritis. Atherosclerotic vascular calcifications are noted in the right leg. Dictated by: Chio Melchor MD The radiology attending physician has personally reviewed this study, and had reviewed and/or edited this written report and agrees with it. Electronically signed by: Gavin Doan M.D. us Mars Sharma MD IMG XR PROCEDURES Fi nal Result * XR Knee Left 3 Views (12/24/2024 5:48 PM CDT) Anatomical Region Laterality Modality Lower Extremities, Knee Left Computed Radiography 12/24/2024 6:06 PM CDT Impressions 12/24/2024 7:13 PM CDT FINDINGS/IMPRESSION: RIGHT ELBOW: No priors for comparison. No acute fractures. No definite right elbow effusion. There is a prominent skinfold along the posterior aspect of the distal right humerus. LEFT ELBOW: No priors for comparison. No acute fractures. No elbow effusion. RIGHT SHOULDER: Outside hospital CT dated 03/17/2023. Acute mildly displaced intra-articular fracture of the distal third of the right clavicle. Normal appearance of the glenohumeral joint. Normal alignment of the right shoulder. Mild linear atelectasis in the right lung base. Atherosclerotic vascular calcifications are noted in the neck. LEFT KNEE: No priors for comparison. No left knee effusion. No acute fractures. Mild tricompartmental left knee osteoarthritis. Atherosclerotic vascular calcifications are noted in the left leg. RIGHT KNEE: No priors for comparison. No effusion or fractures. Mild patellofemoral osteoarthritis. Atherosclerotic vascular calcifications are noted in the right leg. Dictated by: Chio Melchor MD The radiology attending physician has personally reviewed this study, and had reviewed and/or edited this written report and agrees with it. Electronically signed by: Gavin Doan M.D. Narrative 12/24/2024 7:13 PM CDT EXAMINATION: XR ELBOW RIGHT 2 VIEWS, XR SHOULDER RIGHT 2 OR MORE VIEWS, XR KNEE LEFT 3 VIEWS, XR KNEE RIGHT 3 VIEWS, XR ELBOW LEFT 2 VIEWS HISTORY: Fall Procedure Note Gavin Doan MD - 12/24/2024 EXAMINATION: XR ELBOW RIGHT 2 VIEWS, XR SHOULDER RIGHT 2 OR MORE VIEWS, XR KNEE LEFT 3 VIEWS, XR KNEE RIGHT 3 VIEWS, XR ELBOW LEFT 2 VIEWS HISTORY: Fall IMPRESSION: FINDINGS/IMPRESSION: RIGHT ELBOW: No priors for comparison. No acute fractures. No definite right elbow effusion. There is a prominent skinfold along the posterior aspect of the distal right humerus. LEFT ELBOW: No priors for comparison. No acute fractures. No elbow effusion. RIGHT SHOULDER: Outside hospital CT dated 03/17/2023. Acute mildly displaced intra-articular fracture of the distal third of the right clavicle. Normal appearance of the glenohumeral joint. Normal alignment of the right shoulder. Mild linear atelectasis in the right lung base. Atherosclerotic vascular calcifications are noted in the neck. LEFT KNEE: No priors for comparison. No left knee effusion. No acute fractures. Mild tricompartmental left knee osteoarthritis. Atherosclerotic vascular calcifications are noted in the left leg. RIGHT KNEE: No priors for comparison. No effusion or fractures. Mild patellofemoral osteoarthritis. Atherosclerotic vascular calcifications are noted in the right leg. Dictated by: Chio Melchor MD The radiology attending physician has personally reviewed this study, and had reviewed and/or edited this written report and agrees with it. Electronically signed by: Gavin Doan M.D. us Mars Sharma MD IMG XR PROCEDURES Fi nal Result * XR Elbow Right 2 Views (12/24/2024 5:48 PM CDT) Anatomical Region Laterality Modality Upper Extremities, Elbow Right Compute d Radiography 12/24/2024 6:06 PM CDT Impressions 12/24/2024 7:13 PM CDT FINDINGS/IMPRESSION: RIGHT ELBOW: No priors for comparison. No acute fractures. No definite right elbow effusion. There is a prominent skinfold along the posterior aspect of the distal right humerus. LEFT ELBOW: No priors for comparison. No acute fractures. No elbow effusion. RIGHT SHOULDER: Outside hospital CT dated 03/17/2023. Acute mildly displaced intra-articular fracture of the distal third of the right clavicle. Normal appearance of the glenohumeral joint. Normal alignment of the right shoulder. Mild linear atelectasis in the right lung base. Atherosclerotic vascular calcifications are noted in the neck. LEFT KNEE: No priors for comparison. No left knee effusion. No acute fractures. Mild tricompartmental left knee osteoarthritis. Atherosclerotic vascular calcifications are noted in the left leg. RIGHT KNEE: No priors for comparison. No effusion or fractures. Mild patellofemoral osteoarthritis. Atherosclerotic vascular calcifications are noted in the right leg. Dictated by: Chio Melchor MD The radiology attending physician has personally reviewed this study, and had reviewed and/or edited this written report and agrees with it. Electronically signed by: Gavin Doan M.D. Narrative 12/24/2024 7:13 PM CDT EXAMINATION: XR ELBOW RIGHT 2 VIEWS, XR SHOULDER RIGHT 2 OR MORE VIEWS, XR KNEE LEFT 3 VIEWS, XR KNEE RIGHT 3 VIEWS, XR ELBOW LEFT 2 VIEWS HISTORY: Fall Procedure Note Gavin Doan MD - 12/24/2024 EXAMINATION: XR ELBOW RIGHT 2 VIEWS, XR SHOULDER RIGHT 2 OR MORE VIEWS, XR KNEE LEFT 3 VIEWS, XR KNEE RIGHT 3 VIEWS, XR ELBOW LEFT 2 VIEWS HISTORY: Fall IMPRESSION: FINDINGS/IMPRESSION: RIGHT ELBOW: No priors for comparison. No acute fractures. No definite right elbow effusion. There is a prominent skinfold along the posterior aspect of the distal right humerus. LEFT ELBOW: No priors for comparison. No acute fractures. No elbow effusion. RIGHT SHOULDER: Outside hospital CT dated 03/17/2023. Acute mildly displaced intra-articular fracture of the distal third of the right clavicle. Normal appearance of the glenohumeral joint. Normal alignment of the right shoulder. Mild linear atelectasis in the right lung base. Atherosclerotic vascular calcifications are noted in the neck. LEFT KNEE: No priors for comparison. No left knee effusion. No acute fractures. Mild tricompartmental left knee osteoarthritis. Atherosclerotic vascular calcifications are noted in the left leg. RIGHT KNEE: No priors for comparison. No effusion or fractures. Mild patellofemoral osteoarthritis. Atherosclerotic vascular calcifications are noted in the right leg. Dictated by: Chio Melchor MD The radiology attending physician has personally reviewed this study, and had reviewed and/or edited this written report and agrees with it. Electronically signed by: Gavin Doan M.D. us Mars Sharma MD IMG XR PROCEDURES Fi nal Result * XR Elbow Left 2 Views (12/24/2024 5:48 PM CDT) Anatomical Region Laterality Modality Upper Extremities, Elbow Left Compute d Radiography 12/24/2024 6:06 PM CDT Impressions 12/24/2024 7:13 PM CDT FINDINGS/IMPRESSION: RIGHT ELBOW: No priors for comparison. No acute fractures. No definite right elbow effusion. There is a prominent skinfold along the posterior aspect of the distal right humerus. LEFT ELBOW: No priors for comparison. No acute fractures. No elbow effusion. RIGHT SHOULDER: Outside hospital CT dated 03/17/2023. Acute mildly displaced intra-articular fracture of the distal third of the right clavicle. Normal appearance of the glenohumeral joint. Normal alignment of the right shoulder. Mild linear atelectasis in the right lung base. Atherosclerotic vascular calcifications are noted in the neck. LEFT KNEE: No priors for comparison. No left knee effusion. No acute fractures. Mild tricompartmental left knee osteoarthritis. Atherosclerotic vascular calcifications are noted in the left leg. RIGHT KNEE: No priors for comparison. No effusion or fractures. Mild patellofemoral osteoarthritis. Atherosclerotic vascular calcifications are noted in the right leg. Dictated by: Chio Melchor MD The radiology attending physician has personally reviewed this study, and had reviewed and/or edited this written report and agrees with it. Electronically signed by: Gavin Doan M.D. Narrative 12/24/2024 7:13 PM CDT EXAMINATION: XR ELBOW RIGHT 2 VIEWS, XR SHOULDER RIGHT 2 OR MORE VIEWS, XR KNEE LEFT 3 VIEWS, XR KNEE RIGHT 3 VIEWS, XR ELBOW LEFT 2 VIEWS HISTORY: Fall Procedure Note Gavin Doan MD - 12/24/2024 EXAMINATION: XR ELBOW RIGHT 2 VIEWS, XR SHOULDER RIGHT 2 OR MORE VIEWS, XR KNEE LEFT 3 VIEWS, XR KNEE RIGHT 3 VIEWS, XR ELBOW LEFT 2 VIEWS HISTORY: Fall IMPRESSION: FINDINGS/IMPRESSION: RIGHT ELBOW: No priors for comparison. No acute fractures. No definite right elbow effusion. There is a prominent skinfold along the posterior aspect of the distal right humerus. LEFT ELBOW: No priors for comparison. No acute fractures. No elbow effusion. RIGHT SHOULDER: Outside hospital CT dated 03/17/2023. Acute mildly displaced intra-articular fracture of the distal third of the right clavicle. Normal appearance of the glenohumeral joint. Normal alignment of the right shoulder. Mild linear atelectasis in the right lung base. Atherosclerotic vascular calcifications are noted in the neck. LEFT KNEE: No priors for comparison. No left knee effusion. No acute fractures. Mild tricompartmental left knee osteoarthritis. Atherosclerotic vascular calcifications are noted in the left leg. RIGHT KNEE: No priors for comparison. No effusion or fractures. Mild patellofemoral osteoarthritis. Atherosclerotic vascular calcifications are noted in the right leg. Dictated by: Chio Melchor MD The radiology attending physician has personally reviewed this study, and had reviewed and/or edited this written report and agrees with it. Electronically signed by: Gavin Doan M.D. us Mars Sharma MD IMG XR PROCEDURES Fi nal Result * XR Shoulder Right 2 or More Views (12/24/2024 5:48 PM CDT) Anatomical Region Laterality Modality Upper Extremities, Shoulder Right Comp uted Radiography 12/24/2024 6:0 6 PM CDT Impressions 12/24/2024 7:13 PM CDT FINDINGS/IMPRESSION: RIGHT ELBOW: No priors for comparison. No acute fractures. No definite right elbow effusion. There is a prominent skinfold along the posterior aspect of the distal right humerus. LEFT ELBOW: No priors for comparison. No acute fractures. No elbow effusion. RIGHT SHOULDER: Outside hospital CT dated 03/17/2023. Acute mildly displaced intra-articular fracture of the distal third of the right clavicle. Normal appearance of the glenohumeral joint. Normal alignment of the right shoulder. Mild linear atelectasis in the right lung base. Atherosclerotic vascular calcifications are noted in the neck. LEFT KNEE: No priors for comparison. No left knee effusion. No acute fractures. Mild tricompartmental left knee osteoarthritis. Atherosclerotic vascular calcifications are noted in the left leg. RIGHT KNEE: No priors for comparison. No effusion or fractures. Mild patellofemoral osteoarthritis. Atherosclerotic vascular calcifications are noted in the right leg. Dictated by: Chio Melchor MD The radiology attending physician has personally reviewed this study, and had reviewed and/or edited this written report and agrees with it. Electronically signed by: Gavin Doan M.D. Narrative 12/24/2024 7:13 PM CDT EXAMINATION: XR ELBOW RIGHT 2 VIEWS, XR SHOULDER RIGHT 2 OR MORE VIEWS, XR KNEE LEFT 3 VIEWS, XR KNEE RIGHT 3 VIEWS, XR ELBOW LEFT 2 VIEWS HISTORY: Fall Procedure Note Gavin Doan MD - 12/24/2024 EXAMINATION: XR ELBOW RIGHT 2 VIEWS, XR SHOULDER RIGHT 2 OR MORE VIEWS, XR KNEE LEFT 3 VIEWS, XR KNEE RIGHT 3 VIEWS, XR ELBOW LEFT 2 VIEWS HISTORY: Fall IMPRESSION: FINDINGS/IMPRESSION: RIGHT ELBOW: No priors for comparison. No acute fractures. No definite right elbow effusion. There is a prominent skinfold along the posterior aspect of the distal right humerus. LEFT ELBOW: No priors for comparison. No acute fractures. No elbow effusion. RIGHT SHOULDER: Outside hospital CT dated 03/17/2023. Acute mildly displaced intra-articular fracture of the distal third of the right clavicle. Normal appearance of the glenohumeral joint. Normal alignment of the right shoulder. Mild linear atelectasis in the right lung base. Atherosclerotic vascular calcifications are noted in the neck. LEFT KNEE: No priors for comparison. No left knee effusion. No acute fractures. Mild tricompartmental left knee osteoarthritis. Atherosclerotic vascular calcifications are noted in the left leg. RIGHT KNEE: No priors for comparison. No effusion or fractures. Mild patellofemoral osteoarthritis. Atherosclerotic vascular calcifications are noted in the right leg. Dictated by: Chio Melchor MD The radiology attending physician has personally reviewed this study, and had reviewed and/or edited this written report and agrees with it. Electronically signed by: Gavin Doan M.D. us Lynette Mason MD IMG XR PROCEDURES Final Re sult * Troponin I high-sensitivity 2-hour (12/24/2024 4:25 PM CDT) Trop I hs 7 <=35 ng/L Comment: Interpretive Data For further hscTnI resources including the diagnostic algorithm and an aid in interpretation, copy and paste this link: [email or web address]/[email or web address] Current Interpretive Data last revised 2020. Trop I hs delta -1 ng/L [facility] Trop I hs interp Insignificant [facility] Blood 12/24/2024 4:2 5 PM CDT 12/24/2024 4:44 PM CDT us Hubert Ulrich MD LAB BLOOD ORDERABLES Final Result [facility] Department [place] [address] * CT Head WO Contrast (12/24/2024 3:11 PM CDT) Anatomical Region Laterality Modality Head and Neck N/A Computed Tomogra phy 12/24/2024 3:21 PM CDT Impressions 12/24/2024 6:16 PM CDT No acute intracranial process. Dictated by: Elvis Rousseau MD The radiology attending physician has personally reviewed this study, and had reviewed and/or edited this written report and agrees with it. Electronically signed by: Yahir Gardner M.D. Narrative 12/24/2024 6:16 PM CDT EXAMINATION: CT head without contrast HISTORY: Fall with head strike, unremarkable physical examination. TECHNIQUE: CT of the head was performed with images acquired from skull base to vertex without intravenous contrast. COMPARISON: None Available. FINDINGS: Mild diffuse parenchymal volume loss. There is no acute intracranial hemorrhage. Ventricles are of normal size and morphology. No mass effect or midline shift is present. The pino-white matter differentiation is normal. Bilateral lens replacements. The visualized portions of the mastoids are normal. The visualized portions of the paranasal sinuses are normal. No fractures are identified. Procedure Note Yahir Gardner MD PhD - 12/24/2024 EXAMINATION: CT head without contrast HISTORY: Fall with head strike, unremarkable physical examination. TECHNIQUE: CT of the head was performed with images acquired from skull base to vertex without intravenous contrast. COMPARISON: None Available. FINDINGS: Mild diffuse parenchymal volume loss. There is no acute intracranial hemorrhage. Ventricles are of normal size and morphology. No mass effect or midline shift is present. The pino-white matter differentiation is normal. Bilateral lens replacements. The visualized portions of the mastoids are normal. The visualized portions of the paranasal sinuses are normal. No fractures are identified. IMPRESSION: No acute intracranial process. Dictated by: Elvis Rousseau MD The radiology attending physician has personally reviewed this study, and had reviewed and/or edited this written report and agrees with it. Electronically signed by: Yahir Gardner M.D. us Hubert Ulrich MD IM CT PROCEDURES Final Re sult * ECG 12-LEAD (12/24/2024 2:35 PM CDT) Narrative [facility] - 12/24/2024 2:35 PM CDT Colby Grove MD 12/24/2024 3:05 PM ECG 12 lead Date/Time: 12/24/2024 2:35 PM Performed by: Hubert Ulrich MD Authorized by: Hubert Ulrich MD Rate: ECG rate: 66 ECG rate assessment: normal Rhythm: Rhythm: sinus rhythm Ectopy: Ectopy: none QRS: QRS axis: Normal Conduction: Conduction: normal ST segments: ST segments: Normal T waves: T waves: normal Previous ECG: Previous ECG: Unavailable Interpretation: Interpretation: normal Recommended Follow-up: Recommended follow up: further workup in the ED Procedure Note Hubert Ulrich MD - 12/24/2024 2:35 PM CDT Procedure ECG 12 lead Date/Time: 12/24/2024 2:35 PM Performed by: Hubert Ulrich MD Authorized by: Hubert Ulrich MD Rate: ECG rate: 66 ECG rate assessment: normal Rhythm: Rhythm: sinus rhythm Ectopy: Ectopy: none QRS: QRS axis: Normal Conduction: Conduction: normal ST segments: ST segments: Normal T waves: T waves: normal Previous ECG: Previous ECG: Unavailable Interpretation: Interpretation: normal Recommended Follow-up: Recommended follow up: further workup in the ED Hubert Ulrich MD Resident 12/24/24 1437 us Hubert Ulrich MD ECG ORDERABLES Final Resu lt Performing Organization Address City/State/[place] Co de Phone Number [facility] * Troponin I high-sensitivity series (baseline, 2hr, 4hr, 6hr) (12/24/2024 2:33 PM CDT) Trop I hs 8 <=35 ng/L Comment: Interpretive Data For further hscTnI resources including the diagnostic algorithm and an aid in interpretation, copy and paste this link: [email or web address] Current Interpretive Data last revised 2020. Blood 12/24/2024 2:33 PM CDT 12/24/2024 3:01 PM CDT us Hubert Ulrich MD LAB BLOOD ORDERABLES Final Result Performing Organization Address City/[facility]/[place] Co de Phone Number [facility] Department [place] [address] * eGFR (12/24/2024 2:33 PM CDT) Pathologist [facility] eGFR >90 >=60 mL/min/1. 73 m2 Comment: Interpretive Data Reference Interval Normal >/= 90 mL/min/1.73m2 Mildly decreased* 60 - 89 mL/min/1.73m2 Mildly to moderately decreased 45 - 59 mL/min/1.73m2 Moderately to severely decreased 30 - 44 mL/min/1.73m2 Severely decreased 15 - 29 mL/min/1.73m2 Kidney Failure < 15 mL/min/1.73m2 *Relative to young adult level Estimated glomerular filtration rate is determined by the 2020 CKD-EPI equation recommended by the National Kid[employer] (A Unifying Approach to GFR Estimation: Recommendations of the NKF-ASK Task Force on Reassessing the Inclusion of Race in Diagnosing Kidney Disease, JASN 2020). The CKD-EPI equation should not be used for patients with unstable renal function and has not been validated in children and those over 70. Current interpretive data was last reviewed 2021. Blood 12/24/2024 2:33 PM CDT 12/24/2024 3:01 PM CDT us Hubert Ulrich MD LAB BLOOD ORDERABLES Final Result [facility] Department [place] [address] * (ABNORMAL) Differential, auto (12/24/2024 2:33 PM CDT) Pathologist [facility] Neutrophil abs 5.01 1.50 - 6.50 K/cumm Imm gran abs 0.03 0.00 - 0.10 K/cumm [facility] Lymphocyte abs 1.21 0.80 - 3.30 K/cumm [facility] Monocyte abs 1.35(H) 0.20 - 0.80 K/cumm [facility] Eosinophil abs 0.21 0.00 - 0.50 K/cumm [facility] Basophil abs 0.05 0.00 - 0.10 K/cumm [facility] Neutrophil pct 63.7 % [facility] Comment: Interpretive Data Percent cell count reference ranges are not reported, since discordance with absolute values may lead to misinterpretation of CBC data. Current Interpretive Data was last revised on 2017. Imm gran pct 0.4 % [facility] Comment: Interpretive Data Percent cell count reference ranges are not reported, since discordance with absolute values may lead to misinterpretation of CBC data. Current Interpretive Data was last revised on 2017. Lymphocyte pct 15.4 % [facility] Comment: Interpretive Data Percent cell count reference ranges are not reported, since discordance with absolute values may lead to misinterpretation of CBC data. Current Interpretive Data was last revised on 2017. Monocyte pct 17.2 % [facility] Comment: Interpretive Data Percent cell count reference ranges are not reported, since discordance with absolute values may lead to misinterpretation of CBC data. Current Interpretive Data was last revised on 2017. Eosinophil pct 2.7 % [facility] Comment: Interpretive Data Percent cell count reference ranges are not reported, since discordance with absolute values may lead to misinterpretation of CBC data. Current Interpretive Data was last revised on 2017. Basophil pct 0.6 % [facility] Comment: Interpretive Data Percent cell count reference ranges are not reported, since discordance with absolute values may lead to misinterpretation of CBC data. Current Interpretive Data was last revised on 2017. Blood 12/24/2024 2:33 PM CDT 12/24/2024 3:01 PM CDT us Hubert Ulrich MD LAB BLOOD ORDERABLES Final Result [facility] Department [place] [address] * Pro B-type natriuretic peptide (12/24/2024 2:33 PM CDT) NT-proBNP 62 <=450 pg/mL Comment: Interpretive Comments: A. Dyspnea in Acute Care Setting All Ages: < 300 pg/ml, acute heart failure unlikely. < 50 yrs: 300 - 450 pg/ml, further investigation warranted. > 450 pg/ml, acute heart failure likely. 50 - 74 yrs: 300 - 900 pg/ml, further investigation warranted. > 900 pg/ml, acute heart failure likely . > or = 75 yrs: 450 - 1800 pg/ml, further investigation warranted. > 1800 pg/ml, acute heart failure likely. B. Non-acute Setting < 75 yrs < 125 pg/ml, rules out heart failure. > or = 125 pg/ml, further investigation warranted. > or = 75 yrs < 450 pg/ml, rules out heart failure. > or = 450 pg/ml, further investigation warranted. - Knowledge of each individual patient's NT-proBNP range may be more useful than using similar cut-points for every patient. Please note that marked elevations in NT-proBNP levels may be observed in state other than Left Ventricular Congestive Failure, including: acute coronary syndromes, right heart strain/failure (including pulmonary embolism and cor pulmonale), critical illness, renal failure, as well as advanced age. - References: 1. Ari OLVERA et.al. Eur Heart J. 2006:27:330-337. 2. Nati RW, Chance AM. J. AM Khadijah Cardiol: Cardiovasc Imag. 2009;2: 216- 225. Interpretive Data Last Revised Date: 2018. Blood 12/24/2024 2:33 PM CDT 12/24/2024 3:01 PM CDT us Hubert Ulrich MD LAB BLOOD ORDERABLES Final Result [facility] Department [place] [address] * (ABNORMAL) CBC with auto differential (12/24/2024 2:33 PM CDT) Pathologist [facility] WBC 7.86 3.80 - 9.90 K/cumm Hgb 13.5 13.0 - 17.5 g/dL [facility] Hct 39.5 38.9 - 50.3 % [facility] Plt 298 150 - 400 K/cumm [facility] MPV 9.9 9.1 - 12.3 fL [facility] RBC 3.90(L) 4.30 - 5.80 M/cumm [facility] MCV 101.3(H) 81.3 - 96.4 fL [facility] MCH 34.6(H) 27.1 - 33.3 pg [facility] MCHC 34.2 32.3 - 35.7 g/dL [facility] RDW CV 13.2 11.1 - 14.9 % [facility] RDW SD 48.9(H) 35.7 - 48.1 fL [facility] NRBC abs 0.00 0.00 - 0.01 K/cumm [facility] Blood 12/24/2024 2:33 PM CDT 12/24/2024 3:01 PM CDT Hubert Ulrich MD LAB BLOOD ORDERABLES Final Result Performing Organization Address City/[facility]/ZIP Co de Phone Number [facility] [place] [address] * TSH (12/24/2024 2:33 PM CDT) Thyroid Stimulating Hormone 2.12 0.30 - 4.20 mcIUnit/mL Blood 12/24/2024 2:33 PM CDT 12/24/2024 3:01 PM CDT Tessa Almonte MD LAB BLOOD ORDERABLES F inal Result [facility] Department [place] [address] * Phosphorus (12/24/2024 2:33 PM CDT) Phosphorus, pl 2.9 2.3 - 4.5 mg/dL Blood 12/24/2024 2:33 PM CDT 12/24/2024 3:01 PM CDT Hubert Ulrich MD LAB BLOOD ORDERABLES Final Result [facility] [place] [address] * Magnesium (12/24/2024 2:33 PM CDT) [facility] Magnesium 1.9 1.4 - 2.5 mg/dL Blood 12/24/2024 2:33 PM CDT 12/24/2024 3:01 PM CDT Hubert Ulrich MD LAB BLOOD ORDERABLES Final Result Performing Organization Address [facility] [place] [address] * Hemoglobin A1c (12/24/2024 2:33 PM CDT) [facility] Hgb A1C 5.0 4.0 - 5.6 % Estimated Average Glucose 97 mg/dL [facility] Comment: The ADA recommends reporting an estimated Average Glucose (eAG) with all Hemoglobin A1c results using the equation derived from a study of 507 normal and diabetic adults. Minority populations were underrepresented and children were not included. (Diabetes Care 2020; 43(S1): S66-S76). The eAG is not equivalent to a fasting glucose. Blood 12/24/2024 2:33 PM CDT 12/24/2024 3:07 PM CDT Tessa Almonte MD LAB BLOOD ORDERABLES F inal Result Performing Organization Address City/[facility]/ZIP Co de Phone Number [facility] [place] [address] * Vitamin B12 (12/24/2024 2:33 PM CDT) [facility] Vitamin B12 390 230 - 1,250 pg/mL Blood 12/24/2024 2:33 PM CDT 12/24/2024 3:01 PM CDT Tessa Almonte MD LAB BLOOD ORDERABLES F inal Result Performing Organization Address [facility]/[place] Co de Phone Number [facility] [place] [address] * (ABNORMAL) Phenytoin level, total (12/24/2024 2:33 PM CDT) Phenytoin 21.9(H) 10.0 - 20.0 mcg/mL Comment: Interpretive Data Therapeutic or Toxic effect of anticonvulsant drugs may occur at different concentrations in different patients and the correlation between dose and clinical effect must be evaluated individually. Current interpretive data was last revised on 14. Blood 12/24/2024 2:33 PM CDT 12/24/2024 3:01 PM CDT Hubert Ulrich MD LAB BLOOD ORDERABLES Final Result Performing Organization Address [facility]/[place] Co de Phone Number [facility] [place] [address] * (ABNORMAL) Basic metabolic panel (12/24/2024 2:33 PM CDT) Sodium 139 135 - 145 mmol/L Potassium, pl 4.5 3.3 - 4.9 mmol/L [facility] Chloride 101 97 - 110 mmol/L [facility] CO2 30 22 - 32 mmol/L [facility] Anion gap 8 2 - 15 mmol/L [facility] BUN 13 6 - 25 mg/dL [facility] Creatinine 0.64(L) 0.80 - 1.30 mg/dL [facility] Glucose 110 70 - 199 mg/dL [facility] Comment: Interpretive Data Fasting glucose >/= 126 mg/dl is diagnostic for diabetes. Fasting is defined as no caloric intake for at least 8 hours. Fasting glucose between 100 mg/dl to 125 mg/dl is diagnostic of prediabetes. In a patient with classic symptoms of hyperglycemia or hyperglycemic crisis, a random glucose >/= 200 mg/dl is diagnostic for diabetes. In the absence of unequivocal hyperglycemia, results should be confirmed by repeat testing. The classification and Diagnosis of Diabetes Diabetes Care 2021; 46: S19-S40. Current interpretive data was last revised 2022. Calcium 8.6 8.5 - 10.3 mg/dL [facility] Blood 12/24/2024 2:33 PM CDT 12/24/2024 3:01 PM CDT us Hubert Ulrich MD LAB BLOOD ORDERABLES Final Result [facility] [place] [address] * XR Pelvis 1 or 2 Views (12/24/2024 2:31 PM CDT) Anatomical Region Laterality Modality Body, Pelvis N/A Computed Radiogr aphy 12/24/2024 2:39 PM CDT Impressions 12/24/2024 2:39 PM CDT The femoral heads are seated within the acetabula bilaterally. There is no acute fracture. 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 Electronically signed by: Oli Lawson M.D. Narrative 12/24/2024 2:39 PM CDT EXAMINATION: XR PELVIS 1 OR 2 VIEWS HISTORY: Bowel COMPARISON: None. Procedure Note Oli Lawson MD - 12/24/2024 EXAMINATION: XR PELVIS 1 OR 2 VIEWS HISTORY: Bowel COMPARISON: None. IMPRESSION: The femoral heads are seated within the acetabula bilaterally. There is no acute fracture. 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 Electronically signed by: Oli Lawson M.D. Hubert Ulrich MD IMG XR PROCEDURES Final Re sult from Last 3 Months Insurance MEDICARE [place] MEDICARE Advance Directives For more information, please contact: [phone] * Full Code (Latest Code Status on File) Date Activated Date Inactivated Comments 12/24/2024 10:36 PM 12/29/2024 10:40 PM Care Teams Rug Washer Relationship Specialty Start Date End Date Vinicio Diane III, DO 2023 [place] [address] PCP - General Family Medicine 12/21/21 Douglas Hernandez III, MD [address] [place] [address] Referring Physician Neurology 12/29/24
--- OUTSIDE RECORDS SUMMARY | 2025-02-03 21:44 | XMS_ITS | Clinical Summary ---
Author Organization [facility] Address [address] [place] [address] Care Team Providers Care Real Estate Associate Attorney Name Role Phone Benedicto HAYWARD DO, James R. Primary Care Provider [phone] David HAYWARD MD, Douglas Roblero Unavailable [phone] Allergies Active Allergy Reactions Criticality Noted Date [...] within 12 hours or as directed by MD. 5 Active polyethylene glycol (MIRALAX) 17 gram/dose [...] hospital -Follow his neurologist Dr Hernandez at [facility] on discharge - neurology consulted, refer to fall plan Assessment & Plan (12/28/2024 7:39 AM CDT): [...] hospital -Follow his neurologist Dr Hernandez at [facility] on discharge - neurology consulted, refer to [facility] plan Assessment & Plan (12/27/2024 5:02 PM CDT): [...] hospital -Follow his neurologist Dr Hernandez at [facility] on discharge - neurology consulted, refer to [facility] plan Assessment & Plan (12/26/2024 1:26 PM [...] is medically ready for discharge. Discharge to [facility] today. Assessment & Plan (12/28/2024 4:40 PM [...] with impair ment of consciousness, intractable 04/30/2018 Encounters Date Type Department Care Team Description 12/30/2024 Telephone [facility] Epilepsy [address] [place] [address] [place] [id number] Douglas Hernandez III, MD Post Hospitalization; Med Management 12/27/2024 Orders Only [facility] Orthopaedic Surgery [address] [place] [address] [place] [phone] Holly Fernández MD Closed nondisplaced fracture of right clavicle, unspecified part of clavicle, initial encounter (Primary Dx) 12/24/2024 1:43 PM CDT - 12/29/2024 6:34 PM CDT Hospital Encounter [facility] [address] [place] [id number] Colby Grove MD Huang, MD Arleen Pacheco Carol H., MD Vest, MD Ag Rocha, Elan Diez MD Fall, initial encounter (Primary Dx); Partial epilepsy with impairment of consciousness, intractable (HCC) Discharge Disposition: Discharge to an IP Rehab facility 12/02/2024 2:30 PM CDT Telemedicine [facility] Epilepsy [address] [place] [address] [place] [phone] Douglas Hernandez III, MD Partial epilepsy with impairment of consciousness, intractable (HCC) (Primary Dx) from Last 3 Months Surgical History Surgery Date Site/Laterality Comments COLON SURGERY UPPER GASTROINTESTINAL ENDOSCOPY Medical History Medical History Date Comments Dysphagia Coronary artery disease Hyperlipidemia Seizures (HCC) 1980s Cataract Arthritis Prosthetic eye globe right eye History of coronary artery stent placement x2 Social History Tobacco Use Types Packs/Day Years [...] on file 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 Gender Identity Not on file Sexual Orientation Not on file Obstetrics History Last Filed Vital Signs Vital Sign Reading [...] 12/24/2024 10:37 PM CDT Plan of Treatment Health Maintenance Due Date Last Done Comments Depression Screening 1950 Hepatitis C Screening 1948 Hepatitis B Screening 1966 Zoster Vaccine (1 of 2) 1998 Well Visit 65+ 2013 Pneumococcal vaccine 65+ (2 of 2 - PCV) 11/13/2022 11/13/2021 Covid-19 Vaccine ( season) 2024 05/13/2021, 10/24/2020, 10/07/2020 Influenza Vaccine (Season Ended) 2025 Fall Risk Assessment 12/29/2025 12/29/2024 DTaP/Tdap/Td Vaccine (2 - Td or Tdap) 02/22/203108/2020 Abdominal Aortic Aneurysm (A AA) Screen Completed 05/03/2020 Procedures Procedure Name Priority Date/Time Associated Diagnosis [...] by: Heath Wu M.D. Tessa Almonte MD IMG MRI PROCEDURES Fin al Result * Urinalysis reflex to microscopic and culture Urine (12/24/2024 8:39 PM CDT) Color, ur Straw Yellow Clarity, ur Clear Clear [facility] Specific gravity, ur 1.011 1.003 - 1.030 [facility] pH, urine 6.5 [facility] Comment: Interpretive Data U rine pH is affected by diet, medications, systemic acid-base disturbances, and renal tubular function. pH may affect urinary stone formation. For example, urine pH below 6.0 may help reduce the tendency for calcium phosphate stones and pH greater than 6.0 may reduce the tendency for uric acid stone formation. Source: [facility] [place] Current Interpretive Data was last revised on 2017 Protein, ur ql Negative Negative [facility] Glucose, ur ql Negative Negative [facility] Ketones, ur Negative Negative [facility] Bilirubin, ur Negative Negative [facility] Blood, ur Negative Negative [facility] Urobilinogen, ur <2.0 <2.0 mg/dL [facility] Nitrite, ur Negative Negative [facility] Leukocyte esterase, ur Negative Negative [facility] UA reflex comment Reflex conditions for microscopic UA and culture not met. [facility] Urine 12/24/2024 8:39 PM CDT 12/24/2024 8:44 PM CDT Hubert Ulrich MD LAB MICROBIOLOGY - GENERAL ORDERABLES Final Result [facility] [address] [facility] [place] [address] * (ABNORMAL) Drugs of Abuse Screen, Urine [...] ur Screen Positive, presumptive (A) CutOff 200ng/mL [facility] Comment: Interpretive Data - Barbiturates: Samples containing greater than 200 ng/mL secobarbital or other cross-reacting barbiturate compounds are reported as positive. False positive and false negative results are possible. Confirmatory testing required for definitive results. Current Interpretive Data was last reviewed 2023. Benzodiazepines, ur Screen Positive, presumptive (A) CutOff 100ng/mL [facility] Comment: Interpretive Data - Benzodiazepines: Samples containing greater than 100 ng/mL nordiazepam or other cross-reacting compounds are reported as positive. False positive and false negative results are possible. Confirmatory testing required for definitive results. Current Interpretive Data was last reviewed 2023. Cannabinoids, ur Not Detected CutOff 50 ng/mL [facility] Comment: Interpretive Data - Cannabinoids: Samples containing greater than 50 ng/mL delta-9 THC -COOH or other cross- reacting compounds are reported as positive. False positive and false negative results are possible. Confirmatory testing required for definitive results. Current Interpretive Data was last reviewed 2023. Cocaine, ur Not Detected CutOff 150ng/mL [facility] Comment: Interpretive Data - Cocaine: Samples containing greater than 150 ng/mL benzoylecgonine or other cross- reacting compounds are reported as positive. False positive and false negative results are possible. Confirmatory testing required for definitive results. Current Interpretive Data was last reviewed 2023. Fentanyl, Ur Not Detected CutOff 5 ng/mL [facility] Comment: Interpretive Data - Fentanyl: Samples containing greater than 5 ng/mL norfentanyl, fentanyl, or other cross-reacting fentanyl compounds are reported as positive. False positive and false negative results are possible. Confirmatory testing required for definitive results. Current Interpretive Data was last reviewed 2023. Methadone, ur Not Detected CutOff 300ng/mL [facility] Comment: Interpretive Data - Methadone: Samples containing greater than 300 ng/mL d,l-methadone or other cross-reacting compounds are reported as positive. False positive and false negative results are possible. Confirmatory testing required for definitive results. Current Interpretive Data was last reviewed 2023. Opiates, ur Not Detected CutOff 300ng/mL [facility] Comment: Interpretive Data - Opiates: Samples containing greater than 300 ng/mL morphine or other cross-reacting compounds are reported as positive. False positive and false negative results are possible. Confirmatory testing required for definitive results. Current Interpretive Data was last reviewed 2023. Oxycodone, ur Not Detected CutOff 100ng/mL [facility] Comment: Interpretive Data - Oxycodone: Samples containing greater than 100 ng/mL oxycodone or other cross-reacting compounds are reported as positive. False positive and false negative results are possible. Confirmatory testing required for definitive results. Current Interpretive Data was last reviewed 2023. Phencyclidine, ur Not Detected CutOff 25 ng/mL [facility] Comment: Interpretive Data - Phencyclidine: Samples containing greater than 25 ng/mL phencyclidine or other cross-reacting compounds are reported as positive. False positive and false negative results are possible. Confirmatory testing required for definitive results. Current Interpretive Data was last reviewed 2023. Urine Creatinine 46 mg/dL [facility] Comment: Interpretive Data Urine Creatinine: < 10 mg/dL is extremely dilute = or > 10 but < 20 mg/dL is dilute = or > 20 mg/dL is normal Current Interpretive Data was last revised on 2017. Urine 12/24/2024 8:39 PM CDT 12/24/2024 8:55 PM CDT Narrative [facility] - 12/24/2024 9:42 PM CDT Drug of Abuse screening is performed by immunoassay for medical purposes only. This is not to be used for Pain Management purposes. us Hubert Ulrich MD LAB URINE ORDERABLES Final Result [facility] [address] [facility] Department [place] [address] * XR Clavicle Bilateral Complete (12/24/2024 8:10 [...] it. Electronically signed by: Jaiden Mcduffie MD [place] Sharma MD IMG CT PROCEDURES Fi [...] it. Electronically signed by: Gavin Doan M.D. [place] Sharma MD IMG XR PROCEDURES Fi [...] it. Electronically signed by: Gavin Doan M.D. [place] Sharma MD IMG XR PROCEDURES Fi [...] it. Electronically signed by: Gavin Doan M.D. [place] Sharma MD IMG XR PROCEDURES Fi nal Result * XR Shoulder Right 2 or More Views (12/24/2024 5:48 PM CDT) Anatomical Region Laterality Modality Upper Extremities, Shoulder Right Comp uted Radiography 12/24/2024 6:06 PM CDT Impressions 12/24/2024 [...] Trop I hs delta -1 ng/L [facility] Trop I hs interp Insignificant [facility] Blood 12/24/2024 4:25 PM CDT 12/24/2024 4:44 PM CDT us Hubert Ulrich MD LAB BLOOD ORDERABLES Final Result [facility] [place] [address] * CT Head WO Contrast (12/24/2024 3:11 [...] Yahir Gardner M.D. us Hubert Ulrich MD IMG CT PROCEDURES Final Re sult * ECG 12-LEAD (12/24/2024 2:35 PM CDT) Narrative [facility] - 12/24/2024 2:35 PM CDT [place] [...] the ED Hubert Ulrich MD Resident 12/24/24 [id number] Hubert Ulrich MD ECG ORDERABLES Final Resu lt [facility] * Troponin I high-sensitivity series (baseline, 2hr, [...] BLOOD ORDERABLES Final Result Performing Organization Address City/[facility]/ZIP Co de Phone Number [facility] [place] [address] * eGFR (12/24/2024 2:33 PM CDT) eGFR >90 >=60 mL/min/1. 73 m2 Comment: [...] Ulrich MD LAB BLOOD ORDERABLES Final Result [facility] [address] [facility] [place] [address] * (ABNORMAL) Differential, auto (12/24/2024 2:33 PM CDT) Neutrophil abs 5.01 1.50 - 6.50 K/cumm Imm gran abs 0.03 0.00 - 0.10 K/cumm [facility] Lymphocyte abs 1.21 0.80 - 3.30 K/cumm [facility] Monocyte abs 1.35(H) 0.20 - 0.80 K/cumm [facility] Eosinophil abs 0.21 0.00 - 0.50 K/cumm [facility] Basophil abs 0.05 0.00 - 0.10 K/cumm [facility] Neutrophil pct 63.7 % [facility] Comment: Interpretive Data Percent cell count reference ranges are not reported, since discordance with absolute values may lead to misinterpretation of CBC data. Current Interpretive Data was last revised on 2017. Imm gran pct 0.4 % [facility] Comment: Interpretive Data Percent cell count reference ranges are not reported, since discordance with absolute values may lead to misinterpretation of CBC data. Current Interpretive Data was last revised on 2017. Lymphocyte pct 15.4 % [facility] Comment: Interpretive Data Percent cell count reference ranges are not reported, since discordance with absolute values may lead to misinterpretation of CBC data. Current Interpretive Data was last revised on 2017. Monocyte pct 17.2 % [facility] Comment: Interpretive Data Percent cell count reference ranges are not reported, since discordance with absolute values may lead to misinterpretation of CBC data. Current Interpretive Data was last revised on 2017. Eosinophil pct 2.7 % [facility] Comment: Interpretive Data Percent cell count reference ranges are not reported, since discordance with absolute values may lead to misinterpretation of CBC data. Current Interpretive Data was last revised on 2017. Basophil pct 0.6 % [facility] Comment: Interpretive Data Percent cell count reference ranges are not reported, since discordance with absolute values may lead to misinterpretation of CBC data. Current Interpretive Data was last revised on 2017. Blood 12/24/2024 2:33 PM CDT 12/24/2024 3:01 PM CDT us Hubert Ulrich MD LAB BLOOD ORDERABLES Final Result [facility] [address] [facility] [place] [address] * Pro B-type natriuretic peptide (12/24/2024 2:33 [...] Eur Heart J. 2006:27:330-337. 2. Nati RW, Meron AM. J. AM Khadijah Cardiol: Cardiovasc Imag. 2009;2: 216- 225. Interpretive Data Last Revised Date: 2018. Blood 12/24/2024 2:33 PM CDT 12/24/2024 3:01 PM CDT Hubert Ulrich MD LAB BLOOD ORDERABLES Final Result Performing Organization Address [facility] Co de Phone Number [facility] [place] [address] * (ABNORMAL) CBC with auto differential (12/24/2024 2:33 PM CDT) [facility] WBC 7.86 3.80 - 9.90 K/cumm Hgb 13.5 13.0 - 17.5 g/dL [facility] Hct 39.5 38.9 - 50.3 % [facility] Plt 298 150 - 400 K/cumm [facility] MPV 9.9 9.1 - 12.3 fL [facility] RBC 3.90(L) 4.30 - 5.80 M/cumm [facility] MCV 101.3(H) 81.3 - 96.4 fL [facility] MCH 34.6(H) 27.1 - 33.3 pg [facility] MCHC 34.2 32.3 - 35.7 g/dL [facility] RDW CV 13.2 11.1 - 14.9 % [facility] RDW SD 48.9(H) 35.7 - 48.1 fL [facility] NRBC abs 0.00 0.00 - 0.01 K/cumm [facility] Blood 12/24/2024 2:33 PM CDT 12/24/2024 3:01 PM CDT Hubert Ulrich MD LAB BLOOD ORDERABLES Final Result Performing Organization Address [facility]/ZIP Co de Phone Number [facility] Department [place] [address] * TSH (12/24/2024 2:33 PM CDT) [facility] Thyroid Stimulating Hormone 2.12 0.30 - 4.20 mcIUnit/mL Blood 12/24/2024 2:33 PM CDT 12/24/2024 3:01 PM CDT Tessa Almonte MD LAB BLOOD ORDERABLES F inal Result Performing Organization Address City/[facility] Co de Phone Number [facility] [place] [address] * Phosphorus (12/24/2024 2:33 PM CDT) [facility] Phosphorus, pl 2.9 2.3 - 4.5 mg/dL Blood 12/24/2024 2:33 PM CDT 12/24/2024 3:01 PM CDT Hubert Ulrich MD LAB BLOOD ORDERABLES Final Result Performing Organization Address [facility] de Phone Number [facility] [place] [address] * Magnesium (12/24/2024 2:33 PM CDT) [facility] Magnesium 1.9 1.4 - 2.5 mg/dL Blood 12/24/2024 2:33 PM CDT 12/24/2024 3:01 PM CDT Hubert Ulrich MD LAB BLOOD ORDERABLES Final Result Performing Organization Address [facility] [place] [address] * Hemoglobin A1c (12/24/2024 2:33 PM CDT) [facility] Hgb A1C 5.0 4.0 - 5.6 % Estimated Average Glucose 97 mg/dL [facility] Comment: The ADA recommends reporting an estimated [...] ORDERABLES F inal Result Performing Organization Address [facility] de Phone Number [facility] [place] [address] * Vitamin B12 (12/24/2024 2:33 PM CDT) Vitamin B12 390 230 - 1,250 pg/mL Blood 12/24/2024 2:33 PM CDT 12/24/2024 3:01 PM CDT Result [facility] Tessa Almonte MD LAB BLOOD ORDERABLES F inal Result Performing Organization Address [facility] de Phone Number [facility] [place] [address] * (ABNORMAL) Phenytoin level, total (12/24/2024 2:33 [...] BLOOD ORDERABLES Final Result Performing Organization Address [facility]/State/ZIP Co de Phone Number [facility] [place] [address] * (ABNORMAL) Basic metabolic panel (12/24/2024 2:33 PM CDT) Sodium 139 135 - 145 mmol/L Potassium, pl 4.5 3.3 - 4.9 mmol/L [facility] Chloride 101 97 - 110 mmol/L [facility] CO2 30 22 - 32 mmol/L [facility] Anion gap 8 2 - 15 mmol/L [facility] BUN 13 6 - 25 mg/dL [facility] Creatinine 0.64(L) 0.80 - 1.30 mg/dL [facility] Glucose 110 70 - 199 mg/dL [facility] Comment: Interpretive Data Fasting glucose >/= 126 [...] classification and Diagnosis of Diabetes Diabetes Care 202; 46: S19-S40. Current interpretive data was last revised 2022. Calcium 8.6 8.5 - 10.3 mg/dL [facility] Blood 12/24/2024 2:33 PM CDT 12/24/2024 3:01 PM CDT us Hubert Ulrich MD LAB BLOOD ORDERABLES Final Result [facility] [place] [address] * XR Pelvis 1 or 2 Views [...] sult from Last 3 Months Insurance MEDICARE GARY MEDICARE SUPPLEMENT GARY MEDICARE SUPPLEMENT MEDICARE Advance Directives For more information, please contact: [phone] * Full Code (Latest Code Status on File) Date Activated Date Inactivated Comments 12/24/2024 10:36 PM 12/29/2024 10:40 PM Care Teams Real Estate Associate Attorney Relationship Specialty Start Date End Date Vinicio Diane III, DO [address] [place] [address] PCP - General Family Medicine 12/21/21 Douglas Hernandez III, MD [address] [place] [address] Referring Physician Neurology 12/29/24
--- OUTSIDE RECORDS SUMMARY | 2025-02-03 21:44 | XMS_ITS | Clinical Summary ---
Author Organization [facility] Address [address] [place] [address] Phone Care Team Providers Care Cube Cutter Name Role Phone Vinicio Diane DO Primary Care Provider Lyubov vailable Allergies Active Allergy Reactions Criticality Noted Date Comments Penicillins Hives High 12/10/2022 Medications aspirin (ECOTRIN EC) 81 mg Tablet, Delayed Release (E.C.) Take 81 mg by mouth daily. Active atorvastatin (LIPITOR) 80 mg tablet Take 80 mg by mouth. 02/15/2022 Active metoprolol tartrate (LOPRESSOR) 50 mg tablet Take 50 mg by mouth daily. 11/18/2022 Active phenytoin sodium (DILANTIN) 100 mg extended release capsule TAKE 2 CAPSULES BY MOUTH EVERY MORNING, 1 CAPSULE AFTER LUNCH AND 2 CAPSULES NIGHTLY 11/18/2022 Active primidone (MYSOLINE) 250 mg tablet 07/22/2022 Active omeprazole (PriLOSEC) 20 mg Capsule, Delayed Release(E.C.) Take 1 Capsule (20 mg) by mouth daily. 30 Capsule 6 12/10/2022 Active Active Problems Problem Noted Date Diagnosed Date Esophageal dysphagia 12/10/2022 Resolved Problems Problem Noted Date Diagnosed Date Resolved Date Atherosclerosis of [place] co ronary artery of [place] heart without angina pectoris 12/10/2022 Family History Medical History Relation Name Comments Heart Disease Brother Heart Disease Father Colon Cancer Neg Hx Relation Name Status Comments Brother Father Social History Tobacco Use Types Packs/Day Years Used Date Smoking Tobacco: Former Cigarettes Tobacco Cessation:Counseling Given: Not Answered Alcohol Use Standard Drinks/Week Comments Yes 0 (1 standard drink = 0.6 oz pur e alcohol) occ. Feeling Safe Answer Date Recorded Are you in a relationship wi th someone who hurts you emotionally and/or physically? 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[employer] Gender Identity Not on file Sexual Orientation Not on file Last Filed Vital Signs Vital Sign Reading Time Taken Comments Blood Pressure 118/65 02/27/2023 1:03 PM CDT Pulse 65 02/27/2023 1:03 PM CDT Temperature 36.2 C (97.1 F) 02/27/2023 12:43 PM CDT Respiratory Rate 18 02/27/2023 1:03 PM CDT Oxygen Saturation 96% 02/27/2023 1:03 PM CDT Inhaled Oxygen Concentration - - Weight 116.8 kg (257 lb 6.4 oz) 023 11:51 AM CDT Height 180.3 cm (5' 11) 02/27/2023 11: 51 AM CDT Body Mass Index 35.9 02/27/2023 11:51 AM CDT Plan of Treatment Health Maintenance Due Date Last Done Comments ZOSTER VACCINE (1 of 2) 1998 PNEUMOCOCCAL VACCINE 50+ YEA RS (2 of 2 - PCV) 11/13/2022 11/13/2021 RSV VACCINE (60+ or ) (1 - 1-dose 75+ series) 2023 INFLUENZA VACCINE (#1) 2024 COVID-19 Vaccine ( season) 2024 05/13/2021, 10/24/2020, 10/07/2020 DTAP/TDAP/TD VACCINES (2 - T d or Tdap) 02/22/2031 02/22/2021 Insurance MEDICARE PART A AND B BCBS SUPP Advance Directives For more information, please contact: [phone] * Full Code (Latest Code Status on File) Date Activated Date Inactivated Comments 02/27/2023 11:54 AM 02/27/2023 3:31 PM Care Teams Cube Cutter Relationship Specialty Start Date End Date Vinicio Diane DO PCP - General Family Practice 08/22/22
--- OUTSIDE RECORDS SUMMARY | 2025-02-03 21:44 | XMS_ITS | Continuity of Care Document ---
Author Organization [facility] Address [address] [place] [address] Phone Care Team Providers Care Refrigerator Mover Name Role Phone Loree De La Vega DO Unavailable Unavailable Advance Directives Directive Yes / No Effective Date File Name No Information Encounters Encounter Description Practice Location Reason(s) For Visit Diagnoses Date Provider Providers Copied on Encounter [facility], [address], [place], [place], [id number], [place] tel:[phone] [facility] No Information [address], [place], [id number], [place]. tel:[phone] Family History Family Member Type Diagnosis Age At Onset No Information Payers Payer name Insurance type Covered green party ID Authoriza tion(s) No Information Social History Type Description Quantity Date Captured Comments Sex Male Smoking Status No Information Chief Complaint And Reason For Visit No Information Reason For Referral Reason For Referral No Information History Of Present Illness Encounter Date Complaint History Of Prese nt Illness No Information Functional Status Date Functional Assessmen t No Information Instructions Date Instruction Additional Infor mation No Information Assessments Type Assessment Date No Information Patient Care Teams Name Effective Dates (start - stop) Status Members No Information
--- OUTSIDE RECORDS SUMMARY | 2025-02-03 21:44 | XMS_ITS | Encounter Summary ---
Author Organization [facility] Health Address [address] [place] [address] Care Team Providers Care Counseling Case Manager Name Role Phone Ankush Sweeney MD Unavailable Unavailable David HAYWARD MD, Robert E. Unavailable [phone] Benedicto HAYWARD DO, James R Unavailable [phone] Benedicto HAYWARD DO, James R Primary Care Provider Sarwat Vera FEATHER EDGER-MARINE FARMER Unavailable + [phone] PcpBella Primary Care Provider Unav ailable Dayanara Gallegos Unavailable [phone] Vicki Dumont Unavailable [phone] Ankush Sweeney MD Unavailable Unavailable David HAYWARD MD, Robert E. Unavailable [phone] Janki Anaya Unavailable Gabriel Cintron MD Unavailable [phone] Sarwat Vera FEATHER EDGER-MARINE FARMER Unavailable + [phone] Janki Anaya Unavailable Encounter Details Date Type Department Care Team (Late st Contact Info) Description 07/05/2022 Lab Requisition [facility] [address] [facility], [place] [address] [place] [address] [place] [address] Social History Tobacco Use Types Packs/Day Years Used Date Smoking Tobacco: Former Cigarettes 1 09/18/1996 - 08/02/2003 Cigars Smokeless Tobacco: Former Snuff Quit: 07/19/1977 Alcohol Use Standard Drinks/Week Comments Yes 1 (1 standard drink = 0.6 oz pur e alcohol) socially- seldom PHQ-2 Answer Date Recorded PHQ2 TOTAL SCORE 0 04/13/2021 Sex and Gender Information Value Date Recorded Sex Assigned at Male 03/23/2023 6:12 PM CDT Legal Sex Male 4:27 AM DECK SUPERVISOR Gender Identity Male 03/23/2023 6:12 PM CDT Sexual Orientation Straight 03/23/2023 6: 12 PM CDT Occupation Industry Job Start Date Job End Date Retired, 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 No / Unsure 07/01/2022 11:19 AM DECK SUPERVISOR documented as of this encounter Functional Status * Is person deaf or have serious hearing difficulty? Answer Date of Assessment Author No 05/14/2016 7:05 AM Yana Lou RN * Is person blind or have serious difficulty seeing? Answer Date of Assessment Author No 05/14/2016 7:05 AM Yana Lou RN * Does person have serious difficulty walking/climbing stairs? Answer Date of Assessment Author No 05/14/2016 7:05 AM Yana Lou RN * Does person have difficulty dressing/bathing? Answer Date of Assessment Author No 05/14/2016 7:05 AM Yana Lou RN * Does person have difficulty doing errands alone? Answer Date of Assessment Author No 05/14/2016 7:05 AM Yana Lou RN documented as of this encounter Mental Status * Does person have difficulty concentrating/remembering/making decisions? Answer Entry Date Author No 05/14/2016 7:05 AM CDT Yana Kohler RN documented in this encounter Plan of Treatment Upcoming Encounters Date Type Department Care Team (Late st Contact Info) Description 07/25/2025 1:40 PM DECK SUPERVISOR Office Visit [facility] Heart & Vascular Care [address] [facility], [facility] [address] [place] [address] [place] [address] [facility] [address] [place] [address] documented as of this encounter Goals Goal Patient Goal Type Associated Problems Recent Progress Patient-Stated? Author Blood Pressure < 140/90 Blood Pressure 136/76(2023 2:06 PM DECK SUPERVISOR) Yeny Maurer Note: Caring for Your High [...] Where can I go for more information? [place] Heart Association National Center: http://www.americanheart.org 1. In the top header, click C onditions . 2. In the top header, click h igh blood pressure. 3. For a printable blood pressure tracker, scroll toward the bottom of the page to Related Tools, and click H BP Trackers. 5-592-IOV-[place]-1 or ( ) National Heart, Lung and Blood [place]: http://www.nhlbi.nih.gov/health/infoctr/index.htm Exercise 5X per week (30 min per time) Exercise No Yeny Diamond Note: The [employer] College [employer] recommends all adults [...] blood pressure and to be overall healthier. documented as of this encounter Procedures Procedure Name Priority Date/Time Associated Diagnosis Comments DERMATOPATHOLOGY Routine 07/04/2022 12:0 0 AM DECK SUPERVISOR documented in this encounter Results * DERMATOPATHOLOGY (07/04/2022 12:00 AM DECK SUPERVISOR) Case Report Dermatopathology Report Case: [id number] Authorizing Provider: Rg Pete MD Collected: 07/04/2022 12:00 AM Ordering Location: [facility] DermPath Lab Received: 07/05/2022 11:38 AM Pathologist: Mini Ontiveros MD Specimen: Skin, posterior neck - left 2 4:36 PM DECK SUPERVISOR DERMATOPATHOLOGY LABORATORY Final Diagnosis Specimen A. SKIN, posterior neck - left: FIBROSING GRANULATION TISSUE (L90.5) (see microscopic description and comment) 2 4:36 PM [facility] DERMATOPATHOLOGY LABORATORY at 1636 DECK SUPERVISOR Clinical History R/O neoplasm of uncertain behavior of skin, cyst, abscess 2 4:36 PM [facility] DERMATOPATHOLOGY LABORATORY Gross Description Specimen A: Received is one formalin filled container labeled with the patient's name and designated posterior neck - left. The specimen consists of a punch biopsy measuring 4x3x5 mm, bisected. Jar 0. 2 4:36 PM [facility] DERMATOPATHOLOGY LABORATORY Microscopic Description Specimen A. SKIN, posterior neck - left: There is focal parakeratosis and spongiosis of the epidermis. There are neutrophils in the stratum corneum and epidermis. In the dermis, there are an increased number of fibroblasts, dilated blood vessels, and a mixed inflammatory cell infiltrate in an edematous stroma. Additional deeper sections were obtained and reviewed. Grocott's methenamine silver (GMS) stain is negative for fungal elements in the sections examined. Tissue Gram stain is negative for bacteria in the sections examined. COMMENT: These histological findings could be consistent with tissue adjacent to a folliculitis, inflamed cyst or abscess. Clinical correlation is recommended. 2 4:36 PM [facility] DERMATOPATHOLOGY LABORATORY Disclaimer An external and internal positive and negative controls are appropriate for the histochemical, immunohistochemical and immunofluorescence stain(s) in this case (if any), except where stated explicitly. The performance characteristics of the stain(s) cited in this report were developed and its performance characteristic determined by the Dermatopathology Laboratory at [facility], directed by Dr. Amrita Browning. These tests need not be, and therefore are not, approved by the [place] Food and Drug Administration. The tests are used for clinical purposes. Billing Codes Specimen Charges Stain Charges 06041 1 15991 48630 1 1 2 4:36 PM DECK SUPERVISOR DERMATOPATHOLOGY LABORATORY Embedded Images 2 4:36 PM [facility] DERMATOPATHOLOGY LABORATORY Pathology/Cytolog y TISSUE SPECIMEN FROM SKIN / Unknown 07/04/2022 07/05/2022 11:38 AM DECK SUPERVISOR Rg Pete MD LAB - PATHOLOGY/CYTOLOGY O RDERABLES Final Result Performing Organization Address [facility]/State/ZIP Co de Phone Number DERMATOPATHOLOGY LABORATORY [facility] - Department of Dermatology [facility] Specialized Medicine [address] [place] [address], [address] [phone] documented in this encounter Visit Diagnoses Not on filedocumented in this encounter Care Teams Counseling Case Manager Relationship Specialty Start Date End Date Vinicio Diane III, DO [address] [place] [phone] PCP - Attributed-MSSP 04/25/20 2 Vinicio Diane III, DO [address] [place] [phone] PCP - General Family Medicine 07/24/22 03/20/23 Sarwat Vera APRN-MARINE FARMER [address] [place] [phone] PCP - Attributed-MSSP 07/25/22 11/23/23 Pcp, Bella [facility] PCP - General 03/21/23 [place] [address] [address] PCP - Attributed-MSSP 11/24/23 02/22/24 Ankush Sweeney MD PCP - Attributed-MSSP 02/23/24 03/24/24 Douglas Hernandez III, MD [facility] [place] [address] PCP - Attributed-MSSP 03/25/24 04/24/24 [place] [address] [address] PCP - Attributed-MSSP 04/25/24 05/24/24 Sarwat Vera APRN-MARINE FARMER [address] [place] [phone] PCP - Attributed-MSSP 05/25/24 12/10/24 Ankush Sweeney MD Firm Administrator Cardiovascular Disease 04/02/12 Douglas Hernandez III, MD [facility] [place] [address] Neurologist Neurology 02/06/15 Dayanara Gallegos Care Coordination Specialist Care Management 12/30/23 12/30/23 Janki Anaya Care Coordination Specialist Care Management 07/13/24 07/13/24 Janki Anaya Care Coordination Specialist Care Management 01/25/25 documented as of this encounter
[2025-02-03 21:46] VITALS: BP 173/86; PULSE 105; RESP 20; TEMP 36.8; O2SAT 97
--- NOTE | 2025-02-03 22:00 | ECG_ITS ---
Test Date: 2025-02-03 22:07:17 Measurements Intervals Carmen Rate: 93 P: 40 SC: 169 QRS: 47 QRSD: 114 T: 85 QT: 350 QTc: 436 Interpretive Statements SINUS RHYTHM INCOMPLETE RIGHT BUNDLE BRANCH BLOCK BORDERLINE ST-T WAVE ABNORMALITY- HIGH LATERAL LEADS BORDERLINE ECG No previous ECG available for comparison Electronically Signed On 02-04-2025 06:26:29 CDT by Brayden Persaud D.O.
--- OUTSIDE RECORDS SUMMARY | 2025-02-03 22:20 | XMS_ITS | Encounter Summary ---
Author Organization [facility] Health Address [address] [facility] [place] [address] Care Team Providers Care Technicians And Trades Workers Name Role Phone Ankush Sweeney MD Unavailable Unavailable David HAYWARD MD, Robert E. Unavailable [phone] Benedicto HAYWARD DO, James R Unavailable [phone] Benedicto HAYWARD DO, James R Primary Care Provider Sarwat Vera CD REACTOR OPERATOR HEAD-BRIM GREASER OPERATOR Unavailable + [phone] PcpBella Primary Care Provider Unav ailable Dayanara Gallegos Unavailable [phone] Vicki Dumont Unavailable [phone] Ankush Sweeney MD Unavailable Unavailable David HAYWARD MD, Robert E. Unavailable [phone] Janki Anaya Unavailable Gabriel Cintron MD Unavailable [phone] Sarwat Vera CD REACTOR OPERATOR HEAD-BRIM GREASER OPERATOR Unavailable + [phone] Janki Anaya Unavailable Encounter Details Date Type Department Care Team (Late st Contact Info) Description 07/05/2022 Lab Requisition [facility] [address] [facility] [place] [address] [place] [address] [place] [address] Social History Tobacco Use Types Packs/Day Years [...] PM CDT Legal Sex Male 4:27 AM DIESEL MECHANIC CONSTRUCTION Gender Identity Male 03/23/2023 6:12 PM CDT Sexual Orientation Straight 03/23/2023 6: 12 PM CDT Occupation Industry Job Start Date Job End Date Retired, 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 No / Unsure 07/01/2022 11:19 AM DIESEL MECHANIC CONSTRUCTION documented as of this encounter Functional Status [...] st Contact Info) Description 07/25/2025 1:40 PM DIESEL MECHANIC CONSTRUCTION Office Visit [facility] Heart & Vascular Care [address] [facility], [facility] [address] [place] [address] [place] [address] [facility] [address] [place] [address] documented as of this encounter Goals Goal Patient Goal Type Associated Problems Recent Progress Patient-Stated? Author Blood Pressure < 140/90 Blood Pressure 136/76(2023 2:06 PM DIESEL MECHANIC CONSTRUCTION) Yeny Maurer Note: Caring for Your High [...] Where can I go for more information? [place] [employer] National Center: http://www.americanheart.org 1. In the top header, click C onditions . 2. In the top header, click h igh blood pressure. 3. For a printable blood pressure tracker, scroll toward the bottom of the page to Related Tools, and click H BP Trackers. 5-519-IFI-USA-1 or ( ) National Heart, Lung and Blood [place]: http://www.nhlbi.nih.gov/health/infoctr/index.htm Exercise 5X per week (30 min per time) Exercise No Yeny Diamond Note: The [place] [employer] recommends all adults [...] Comments DERMATOPATHOLOGY Routine 07/04/2022 12:0 0 AM DIESEL MECHANIC CONSTRUCTION documented in this encounter Results * DERMATOPATHOLOGY (07/04/2022 12:00 AM DIESEL MECHANIC CONSTRUCTION) Case Report Dermatopathology Report Case: [id number] Authorizing Provider: Rg Pete MD Collected: 07/04/2022 12:00 AM Ordering Location: [facility] DermPath Lab Received: 07/05/2022 11:38 AM Pathologist: Mini Ontiveros MD Specimen: Skin, posterior neck - left 2 4:36 PM DIESEL MECHANIC CONSTRUCTION DERMATOPATHOLOGY LABORATORY Final Diagnosis Specimen A. SKIN, posterior neck - left: FIBROSING GRANULATION TISSUE (L90.5) (see microscopic description and comment) 2 4:36 PM [facility] DERMATOPATHOLOGY LABORATORY at [address]36 DIESEL MECHANIC CONSTRUCTION Clinical History R/O neoplasm of uncertain behavior of skin, cyst, abscess 2 4:36 PM [facility] DERMATOPATHOLOGY LABORATORY Gross Description Specimen A: Received is one formalin filled container labeled with the patient's name and designated posterior neck - left. The specimen consists of a punch biopsy measuring 4x3x5 mm, bisected. Jar 0. 2 4:36 PM [facility] DERMATOPATHOLOGY LABORATORY Microscopic Description Specimen A. SKIN, [...] Clinical correlation is recommended. 2 4:36 PM [facility] DERMATOPATHOLOGY LABORATORY Disclaimer An external and internal positive and negative controls are appropriate for the histochemical, immunohistochemical and immunofluorescence stain(s) in this case (if any), except where stated explicitly. The performance characteristics of the stain(s) cited in this report were developed and its performance characteristic determined by the Dermatopathology Laboratory at [facility], directed by Dr. Amrita Browning. These tests need not be, and therefore are not, approved by the [place] Food and Drug Administration. The tests are used for clinical purposes. Billing Codes Specimen Charges Stain Charges 14833 1 17838 85299 1 1 2 4:36 PM DIESEL MECHANIC CONSTRUCTION DERMATOPATHOLOGY LABORATORY Embedded Images 2 4:36 PM [facility] DERMATOPATHOLOGY LABORATORY Pathology/Cytolog y TISSUE SPECIMEN FROM SKIN / Unknown 07/04/2022 07/05/2022 11:38 AM DIESEL MECHANIC CONSTRUCTION Rg Pete MD LAB - PATHOLOGY/CYTOLOGY O RDERABLES Final Result Performing Organization Address [facility]/State/ZIP Co de Phone Number DERMATOPATHOLOGY LABORATORY [facility] - Department of Dermatology [facility] Specialized Medicine [address] [place] [address], [address] [phone] documented in this encounter Visit Diagnoses Not on filedocumented in this encounter Care Teams Technicians And Trades Workers Relationship Specialty Start Date End Date Vinicio Diane III, DO [address] [place] [phone] PCP - Attributed-MSSP 04/25/20 2 Vinicio Diane III, DO [address] [place] [phone] PCP - General Family Medicine 07/24/22 03/20/23 Sarwat Vera APRN-BRIM GREASER OPERATOR [address] [place] [phone] PCP - Attributed-MSSP 07/25/22 11/23/23 Pcp, Bella [facility] PCP - General 03/21/23 [place] [address] [address] PCP - Attributed-MSSP 11/24/23 02/22/24 Ankush Sweeney MD PCP - Attributed-MSSP 02/23/24 03/24/24 Douglas Hernandez III, MD [facility] [place] [address] PCP - Attributed-MSSP 03/25/24 04/24/24 [place] [address] [address] PCP - Attributed-MSSP 04/25/24 05/24/24 Sarwat Vera APRN-BRIM GREASER OPERATOR [address] [place] [phone] PCP - Attributed-MSSP 05/25/24 12/10/24 Ankush Sweeney MD Tourism Radio Presenter Cardiovascular Disease 04/02/12 Douglas Hernandez III, MD [facility] [place] [address] Neurologist Neurology 02/06/15 Dayanara Gallegos Care Coordination Specialist Care Management 12/30/23 12/30/23 Janki Anaya Care Coordination Specialist Care Management 07/13/24 07/13/24 Janki Anaya Care Coordination Specialist Care Management 01/25/25 documented as of this encounter
--- OUTSIDE RECORDS SUMMARY | 2025-02-03 22:20 | XMS_ITS | Clinical Summary ---
Author Organization [facility] Address [address] [place] [address] Phone Care Team Providers Care Access Liaison Name Role Phone Vinicio Diane DO Primary [...] Date Diagnosed Date Resolved Date Atherosclerosis of [place] co ronary artery of [place] heart without angina pectoris 12/10/2022 Family History [...] on file Legal Sex Male 3:56 PM RAD TECH Gender Identity Not on file Sexual Orientation [...] Advance Directives For more information, please contact: [phone] * Full Code (Latest Code Status on File) Date Activated Date Inactivated Comments 02/27/2023 11:54 AM 02/27/2023 3:31 PM Care Teams Access Liaison Relationship Specialty Start Date End Date Vinicio Diane DO PCP - General Family Practice 08/22/22
--- OUTSIDE RECORDS SUMMARY | 2025-02-03 22:20 | XMS_ITS | Referral Summary ---
Author Organization [facility] Address [address] [place] [address] Care Team Providers Care Licensed Investment Sales Assistant Name Role Phone Benedicto HAYWARD DO, James R. Primary Care Provider [phone] David HAYWARD MD, Douglas Anglin [phone] Encounters Date Type Department Care Team Description 12/30/2024 Telephone [facility] [address] [facility] 6th [place] [address] [place] [id number] Douglas Hernandez III, MD Post Hospitalization; Med Management 12/24/2024 1:43 PM CDT - 12/29/2024 6:34 PM CDT Hospital Encounter [facility] [address] [place] [address] Colby Grove MD Huang, MD Arleen Pacheco Carol H., MD Vest, MD Ag Rocha, MD Harris King, initial encounter (Primary Dx); Partial epilepsy with impairment of consciousness, intractable (HCC) Discharge Disposition: Discharge to an Rehab facility 12/27/2024 Orders Only [facility] Orthopaedic Surgery [address] [facility] 6th [place] [address] [place] [address] Holly Fernández MD Closed nondisplaced fracture of right clavicle, unspecified part of clavicle, initial encounter (Primary Dx) 12/02/2024 2:30 PM CDT Telemedicine [facility] [address] [facility] 6th [place] [address] [place] [address] Douglas Hernandez III, MD Partial epilepsy with [...] hospital -Follow his neurologist Dr Hernandez at [facility] on discharge - neurology consulted, refer to [facility] Assessment & Plan (12/28/2024 7:39 AM CDT): [...] hospital -Follow his neurologist Dr Hernandez at [facility] on discharge - neurology consulted, refer to [facility] Assessment & Plan (12/27/2024 5:02 PM CDT): [...] hospital -Follow his neurologist Dr Hernandez at [facility] on discharge - neurology consulted, refer to [...] is medically ready for discharge. Discharge to [facility] today. 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 pH may affect urinary stone formation. For example, urine pH below 6.0 may help reduce the tendency for calcium phosphate stones and pH greater than 6.0 may reduce the tendency for uric acid stone formation. Source: [employer] Current Interpretive Data was last revised on 2017 Protein, ur ql Negative Negative [facility] Glucose, ur ql Negative Negative [facility] Ketones, ur Negative Negative [facility] Bilirubin, ur Negative Negative [facility] Blood, ur Negative Negative [facility] Urobilinogen, ur <2.0 <2.0 mg/dL [facility] Nitrite, ur Negative Negative [facility] Leukocyte esterase, ur Negative Negative [facility] UA reflex comment Reflex conditions for microscopic UA and culture not met. [facility] Urine 12/24/2024 8:39 PM CDT 12/24/2024 8:44 PM CDT Hubert Ulrich MD LAB MICROBIOLOGY - GENERAL ORDERABLES Final Result [facility] [address] [facility] Department [place] [address] * (ABNORMAL) Drugs of Abuse Screen, Urine [...] ur Screen Positive, presumptive (A) CutOff 200ng/mL [facility] Comment: Interpretive Data - Barbiturates: Samples containing greater than 200 ng/mL secobarbital or other cross-reacting barbiturate compounds are reported as positive. False positive and false negative results are possible. Confirmatory testing required for definitive results. Current Interpretive Data was last reviewed 2023. Benzodiazepines, ur Screen Positive, presumptive (A) CutOff 100ng/mL [facility] Comment: Interpretive Data - Benzodiazepines: Samples containing greater than 100 ng/mL nordiazepam or other cross-reacting compounds are reported as positive. False positive and false negative results are possible. Confirmatory testing required for definitive results. Current Interpretive Data was last reviewed 2023. Cannabinoids, ur Not Detected CutOff 50 ng/mL [facility] Comment: Interpretive Data - Cannabinoids: Samples containing greater than 50 ng/mL delta-9 THC -COOH or other cross- reacting compounds are reported as positive. False positive and false negative results are possible. Confirmatory testing required for definitive results. Current Interpretive Data was last reviewed 2023. Cocaine, ur Not Detected CutOff 150ng/mL [facility] Comment: Interpretive Data - Cocaine: Samples [...] Methadone, ur Not Detected CutOff 300ng/mL [facility] Comment: Interpretive Data - Methadone: Samples containing greater than 300 ng/mL d,l-methadone or other cross-reacting compounds are reported as positive. False positive and false negative results are possible. Confirmatory testing required for definitive results. Current Interpretive Data was last reviewed 2023. Opiates, ur Not Detected CutOff 300ng/mL [facility] Comment: Interpretive Data - Opiates: Samples [...] last reviewed 2023. Urine Creatinine 46 mg/dL [facility] Comment: Interpretive Data Urine Creatinine: < 10 mg/dL is extremely dilute = or > 10 but < 20 mg/dL is dilute = or > 20 mg/dL is normal Current Interpretive Data was last revised on 2017. Urine 12/24/2024 8:39 PM CDT 12/24/2024 8:55 PM CDT N[facility]ative [facility] - 12/24/2024 9:42 PM CDT Drug of Abuse screening is performed by immunoassay for medical purposes only. This is not to be used for Pain Management purposes. us Hubert Ulrich MD LAB URINE ORDERABLES Final Result [facility] [address] [facility] Department [place] [address] * XR Clavicle Bilateral Complete (12/24/2024 8:10 [...] Trop I hs delta -1 ng/L [facility] Trop I hs interp Insignificant [facility] Blood 12/24/2024 4:25 PM CDT 12/24/2024 4:44 PM CDT us Hubert Ulrich MD LAB BLOOD ORDERABLES Final Result [facility] Department [place] [address] * CT Head WO Contrast (12/24/2024 3:11 [...] 12-LEAD (12/24/2024 2:35 PM CDT) Narrative [facility] - 12/24/2024 2:35 PM CDT [place] [...] ORDERABLES Final Resu lt Performing Organization Address City/[facility] Co de Phone Number [facility] * Troponin I high-sensitivity series (baseline, 2hr, [...] BLOOD ORDERABLES Final Result Performing Organization Address City/[facility] Co de Phone Number [facility] Department [place] [address] * eGFR (12/24/2024 2:33 PM CDT) [facility] eGFR >90 >=60 mL/min/1. 73 m2 Comment: [...] Ulrich MD LAB BLOOD ORDERABLES Final Result [facility] [place] [address] * (ABNORMAL) Differential, auto (12/24/2024 2:33 PM CDT) [facility] Neutrophil abs 5.01 1.50 - 6.50 K/cumm Imm gran abs 0.03 0.00 - 0.10 K/cumm [facility] Lymphocyte abs 1.21 0.80 - 3.30 K/cumm [facility] Monocyte abs 1.35(H) 0.20 - 0.80 K/cumm [facility] Eosinophil abs 0.21 0.00 - 0.50 K/cumm [facility] Basophil abs 0.05 0.00 - 0.10 K/cumm [facility] Neutrophil pct 63.7 % [facility] Comment: Interpretive Data Percent cell count reference ranges are not reported, since discordance with absolute values may lead to misinterpretation of CBC data. Current Interpretive Data was last revised on 2017. Imm gran pct 0.4 % [facility] Comment: Interpretive Data Percent cell count reference ranges are not reported, since discordance with absolute values may lead to misinterpretation of CBC data. Current Interpretive Data was last revised on 2017. Lymphocyte pct 15.4 % [facility] Comment: Interpretive Data Percent cell count reference ranges are not reported, since discordance with absolute values may lead to misinterpretation of CBC data. Current Interpretive Data was last revised on 2017. Monocyte pct 17.2 % [facility] Comment: Interpretive Data Percent cell count reference ranges are not reported, since discordance with absolute values may lead to misinterpretation of CBC data. Current Interpretive Data was last revised on 2017. Eosinophil pct 2.7 % [facility] Comment: Interpretive Data Percent cell count reference ranges are not reported, since discordance with absolute values may lead to misinterpretation of CBC data. Current Interpretive Data was last revised on 2017. Basophil pct 0.6 % [facility] Comment: Interpretive Data Percent cell count reference ranges are not reported, since discordance with absolute values may lead to misinterpretation of CBC data. Current Interpretive Data was last revised on 2017. Blood 12/24/2024 2:33 PM CDT 12/24/2024 3:01 PM CDT us Hubert Ulrich MD LAB BLOOD ORDERABLES Final Result [facility] Department [place] [address] * Pro B-type natriuretic peptide (12/24/2024 2:33 [...] Ulrich MD LAB BLOOD ORDERABLES Final Result [facility] Department of Laboratories [place], [place] [id number] * (ABNORMAL) CBC with auto differential (12/24/2024 2:33 PM CDT) Pathologist [facility] WBC 7.86 3.80 - 9.90 K/cumm Hgb 13.5 13.0 - 17.5 g/dL [facility] Hct 39.5 38.9 - 50.3 % [facility] Plt 298 150 - 400 K/cumm [facility] MPV 9.9 9.1 - 12.3 fL [facility] RBC 3.90(L) 4.30 - 5.80 M/cumm [facility] MCV 101.3(H) 81.3 - 96.4 fL [facility] MCH 34.6(H) 27.1 - 33.3 pg [facility] MCHC 34.2 32.3 - 35.7 g/dL [facility] RDW CV 13.2 11.1 - 14.9 % [facility] RDW SD 48.9(H) 35.7 - 48.1 fL [facility] NRBC abs 0.00 0.00 - 0.01 K/cumm [facility] Blood 12/24/2024 2:33 PM CDT 12/24/2024 3:01 PM CDT Hubert Ulrich MD LAB BLOOD ORDERABLES Final Result Performing Organization Address City/[facility]/ZIP Co de Phone Number [facility] Department [place] [address] * TSH (12/24/2024 2:33 PM CDT) Pathologist [facility] Thyroid Stimulating Hormone 2.12 0.30 - 4.20 mcIUnit/mL Blood 12/24/2024 2:33 PM CDT 12/24/2024 3:01 PM CDT Tessa Almonte MD LAB BLOOD ORDERABLES F inal Result [facility] Department [place] [address] * Phosphorus (12/24/2024 2:33 PM CDT) Phosphorus, pl 2.9 2.3 - 4.5 mg/dL Blood 12/24/2024 2:33 PM CDT 12/24/2024 3:01 PM CDT Hubert Ulrich MD LAB BLOOD ORDERABLES Final Result [facility] Department [place] [address] * Magnesium (12/24/2024 2:33 PM CDT) [facility] Magnesium 1.9 1.4 - 2.5 mg/dL Blood 12/24/2024 2:33 PM CDT 12/24/2024 3:01 PM CDT Hubert Ulrich MD LAB BLOOD ORDERABLES Final Result Performing Organization Address [facility] [place] [address] * Hemoglobin A1c (12/24/2024 2:33 PM CDT) [facility] Hgb A1C 5.0 4.0 - 5.6 % Estimated Average Glucose 97 mg/dL [facility] Comment: The ADA recommends reporting an [...] MD LAB BLOOD ORDERABLES F inal Result [facility] [place] [address] * Vitamin B12 (12/24/2024 2:33 PM CDT) [facility] Vitamin B12 390 230 - 1,250 pg/mL Blood 12/24/2024 2:33 PM CDT 12/24/2024 3:01 PM CDT Tessa Almonte MD LAB BLOOD ORDERABLES F inal Result Performing Organization Address [facility] Co de Phone Number [facility] Department [place] [address] * (ABNORMAL) Phenytoin level, total (12/24/2024 2:33 [...] BLOOD ORDERABLES Final Result Performing Organization Address [facility] Co de Phone Number [facility] [place] [address] * (ABNORMAL) Basic metabolic panel (12/24/2024 2:33 PM CDT) Sodium 139 135 - 145 mmol/L Potassium, pl 4.5 3.3 - 4.9 mmol/L [facility] Chloride 101 97 - 110 mmol/L [facility] CO2 30 22 - 32 mmol/L [facility] Anion gap 8 2 - 15 mmol/L [facility] BUN 13 6 - 25 mg/dL [facility] Creatinine 0.64(L) 0.80 - 1.30 mg/dL [facility] Glucose 110 70 - 199 mg/dL [facility] Comment: Interpretive Data Fasting glucose >/= [...] MD LAB BLOOD ORDERABLES Final Result [facility] Department [place] [address] * XR Pelvis 1 or 2 Views [...] sult from Last 3 Months Insurance MEDICARE [employer] MED[employer]ARE SUPPLEMENT [employer] MED[employer] SUPPLEMENT MEDICARE Advance Directives For more information, please contact: [phone] * Full Code (Latest Code Status on File) Date Activated Date Inactivated Comments 12/24/2024 10:36 PM 12/29/2024 10:40 PM Care Teams Licensed Investment Sales Assistant Relationship Specialty Start Date End Date Vinicio Diane III, DO [address] [place] [address] PCP - General Family Medicine 12/21/21 Douglas Hernandez III, MD [address] [place] [address] Referring Physician Neurology 12/29/24
--- OUTSIDE RECORDS SUMMARY | 2025-02-03 22:20 | XMS_ITS ---
Author Organization [facility] Address [address] [place] [address] Care Team Providers Care Civil Engineering Draftsperson Name Role Phone Ankush Sweeney MD Unavailable Unavailable David HAYWARD MD, Douglas Roblero Unavailable [phone] Pcp, Bella Roche Primary Care Provider Unav ailJanki Merino Unavailable QMM & AWV - Vibrance Status:Identified (Enrolling) Start date:01/25/2025 Enrollment reason:Identified using claims or encounter data Case Team Name Relationship Phone Janki Anaya(Responsible Staff) Care Coordinat ion Specialist [phone] Continued Care and Services Coordination
--- OUTSIDE RECORDS SUMMARY | 2025-02-03 22:20 | XMS_ITS | Clinical Summary ---
Author Organization [facility] Address [address] [place] [address] Care Team Providers Care Fabric Lay Out Worker Name Role Phone Ankush Sweeney MD Unavailable Unavailable David HAYWARD MD, Doulgas Roblero Unavailable [phone] Pcp, Bella Medina Primary Care Provider Janki Boswell Unavailable Source Comments [facility],non-owned Affiliates and Associated Physician Practices is amultiple site organization consisting of ambulatory clinics and hospital sitesin [place], [place], [place] and [place]. This disclosure is being madepursuant to the Care Everywhere program and may not contain all information available regarding this patient. 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/13/2021 Essential hypertension [...] wrist 10/23/20172020 Coronary artery disease invo lving [place] heart 03/10/2017 05/13/2021 History of arthroscopy of [...] Department Care Team Description 01/25/2025 Patient Outreach [facility] - Care Coordination [address] [address] Janki Anaya from Last 3 Months Immunizations Immunization Administration Dates Next Due COVID PFIZER BIVALENT 12Y+ 30mcg/0.3ML Covid Pfizer primary monoval ent 12+ yr 0.3mL Purple cap 05/13/2021,10/24/2020,10/07/2020 PNEUMOCOCCAL PPSV23 11/13/2021 TDAP (7yrs+) 02/22/2021 Family History Medical History Relation Name Comments Heart Failure Brother 2 AL<55(male) Brother 3 stated one of h is brothers at age 35 with a heart attack AL<55(male) Brother 4 stated another brother at age 42 with a heart attack CAD (Coronary Artery Disease) Brother 5 another brother has 4 stents in his heart CAD (Coronary Artery Disease) Father Heart Failure Father AL<55(male) Father stated his fath er at age [...] PM CDT Legal Sex Male 4:27 AM LOCATION AND MEASUREMENT TECHNICIAN Gender Identity Male 03/23/2023 6:12 PM CDT Sexual Orientation Straight 03/23/2023 6: 12 PM CDT Occupation Industry Job Start Date Job End Date Retired, 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 Not on file Not on file Last Filed Vital Signs Vital Sign Reading Time Taken Comments Blood Pressure 136/76 07/20/2024 2:06 PM LOCATION AND MEASUREMENT TECHNICIAN Pulse 66 07/20/2024 2:06 PM LOCATION AND MEASUREMENT TECHNICIAN Temperature 36.5 C (97.7 F) 07/20/2024 2:06 PM LOCATION AND MEASUREMENT TECHNICIAN Respiratory Rate 18 02/09/2023 3:37 PM CDT Oxygen Saturation 95% 07/20/2024 2:06 PM LOCATION AND MEASUREMENT TECHNICIAN Inhaled Oxygen Concentration - - Weight 107.3 kg (236 lb 9.6 oz) 07/20/2024 2:06 PM LOCATION AND MEASUREMENT TECHNICIAN Height 177.8 cm (5' 10) 05/12/2024 9:29 AM CDT Body Mass Index 33.95 05/12/2024 9:29 AM CDT Plan of Treatment Upcoming Encounters Date Type Department Care Team (Late st Contact Info) Description 07/25/2025 1:40 PM LOCATION AND MEASUREMENT TECHNICIAN Office Visit [facility] [id number] [place] [address], [address] [address] [place] [address] [address] Health Maintenance Due Date Last [...] < 140/90 Blood Pressure 136/76(2023 2:06 PM LOCATION AND MEASUREMENT TECHNICIAN) Yeny Maurer Note: Caring for Your High [...] Where can I go for more information? [place] [employer] National Center: http://www.americanheart.org 1. In the top header, click C onditions . 2. In the top header, click h igh blood pressure. 3. For a printable blood pressure tracker, scroll toward the bottom of the page to Related Tools, and click H BP Trackers. [id number] or ( ) National Heart, Lung and Blood [place]: http://www.nhlbi.nih.gov/health/infoctr/index.htm Exercise 5X per week (30 min per time) Exercise Yeny Maurer Note: The [place] [employer] recommends all adults [...] HEPATITIS C ANTIBODY Routine 07/26/2013 8:42 AM LOCATION AND MEASUREMENT TECHNICIAN Physical exam, annual Need for hepatitis C [...] Resulting Agency Comment Lab Testing performed at: [address] Rohan [place] [id number] Vinicio Diane III, LAB - CHEMISTRY ORDERABLES Final Result Performing Organization Address City/[facility] Co de Phone Number [facility] INSURANCE BILL [address] [place] [address] * PROSTATE SPECIFIC ANTIGEN SCREEN (05/04/2021 2:57 PM CDT) [facility] PSA 0.96 0.00 - 4.00 ng/mL [facility] INSURANCE BILL Blood BLOOD SPECIMEN / Unknown 05/04/2021 2:57 PM CDT 05/04/2021 Narrative Resulting Agency Comment Lab Testing performed at: [address] Rohan [place] [id number] Vinicio Diane III, DO LAB - CHEMISTRY ORDERABLES Final Result Performing Organization Address City/[facility]/ZIP Co de Phone Number [facility] INSURANCE BILL [address] [place] [address] * HEPATITIS C ANTIBODY (07/26/2013 8:42 AM LOCATION AND MEASUREMENT TECHNICIAN) [facility] Hepatitis C Antibody NON-REACTI VE NON-REACT [facility] Signal to Cut-Off 0.10 <1.00 [facility] Comment: Test Performed at: [facility] [address] [place] [address] KATIE PRIDE DO,MPH Blood specimen (specimen) BLOOD SPECIMEN / Unknown 07/26/2013 8:42 AM LOCATION AND MEASUREMENT TECHNICIAN 07/26/2013 8:43 AM LOCATION AND MEASUREMENT TECHNICIAN Wilfrido Mora DO LAB - CHEMISTRY ORDERABLES Final Result [facility] [id number] [place] [address] from Last 3 Months or Most Recently Relevant to Health Maintenance Insurance [facility] Address: [address] [place] [address] MEDICARE ANTHEM MEDICARE Advance Directives * FULL RESUSCITATION (Latest Code Status on File) Date Activated Date Inactivated Comments 09/09/2012 2:12 AM 09/09/2012 4:21 PM Care Teams Fabric Lay Out Worker Relationship Specialty Start Date End Date Pcp, Bella Medina PCP - General 03/21/23 Ankush Sweeney MD Financial Intern Cardiovascular Disease 04/02/12 Douglas Hernandez III, MD [address] [place] [address] Neurologist Neurology 02/06/15 Janki Anaya Care Coordination Specialist Care Management 01/25/25
--- OUTSIDE RECORDS SUMMARY | 2025-02-03 22:20 | XMS_ITS | Clinical Summary ---
Author Organization [facility] Address [address] [place] [address] Care Team Providers Care Veterinary Epidemiologist Name Role Phone Benedicto HAYWARD DO, James R. Primary Care Provider [phone] David HAYWARD MD, Douglas Roblero Unavailable [phone] Allergies Active Allergy Reactions Criticality Noted Date [...] to the hospital -Follow his neurologist Dr Heranndez at [facility] on discharge - neurology consulted, refer to [...] hospital -Follow his neurologist Dr Hernandez at [facility] on discharge - neurology consulted, refer to [facility] plan Assessment & Plan (12/27/2024 5:02 [...] hospital -Follow his neurologist Dr Hernandez at [facility] on discharge - neurology consulted, refer to [facility] plan Assessment & Plan (12/26/2024 1:26 [...] is medically ready for discharge. Discharge to [facility] today. Assessment & Plan (12/28/2024 4:40 [...] Type Department Care Team Description 12/30/2024 Telephone [facility] Epilepsy [address] [place] [address] [place] [phone] Douglas Hernandez III, MD Post Hospitalization; Med Management 12/27/2024 Orders Only [facility] Orthopaedic Surgery [address] [place] [address] [place] [phone] Holly Fernández MD Closed nondisplaced fracture of right clavicle, unspecified part of clavicle, initial encounter (Primary Dx) 12/24/2024 1:43 PM CDT - 12/29/2024 6:34 PM CDT Hospital Encounter [facility] [address] [place] [id number] [place]by [place] MD Huang, MD Arleen Pacheco Carol H., MD Vest, MD Ag Rocha, Elan Diez MD Fall, initial encounter (Primary Dx); Partial epilepsy with impairment of consciousness, intractable (HCC) Discharge Disposition: Discharge to an IP Rehab facility 12/02/2024 2:30 PM CDT Telemedicine [facility] Epilepsy [address] [place] [address] [place] [phone] Douglas Hernandez III, MD Partial epilepsy with [...] on file 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 Tessa Almonet MD IMG MRI PROCEDURES Fin al Result * Urinalysis reflex to microscopic and culture Urine (12/24/2024 8:39 PM CDT) Color, ur Straw Yellow Clarity, ur Clear Clear [facility] Specific gravity, ur 1.011 1.003 - 1.030 [facility] pH, urine 6.5 [facility] Comment: Interpretive Data U rine pH is affected by diet, medications, systemic acid-base disturbances, and renal tubular function. pH may affect urinary stone formation. For example, urine pH below 6.0 may help reduce the tendency for calcium phosphate stones and pH greater than 6.0 may reduce the tendency for uric acid stone formation. Source: [facility] [employer] Current Interpretive Data was last revised on 2017 Protein, ur ql Negative Negative [facility] Glucose, ur ql Negative Negative [facility] Ketones, ur Negative Negative [facility] Bilirubin, ur Negative Negative [facility] Blood, ur Negative Negative [facility] Urobilinogen, ur <2.0 <2.0 mg/dL [facility] Nitrite, ur Negative Negative [facility] Leukocyte esterase, ur Negative Negative [facility] UA reflex comment Reflex conditions for microscopic UA and culture not met. [facility] Urine 12/24/2024 8:39 PM CDT 12/24/2024 8:44 PM CDT Hubert Ulrich MD LAB MICROBIOLOGY - GENERAL ORDERABLES Final Result [facility] [address] [facility] [place] [address] * (ABNORMAL) Drugs of Abuse Screen, Urine [...] Screen Positive, presumptive (A) CutOff 200ng/mL [facility] Comment: Interpretive Data - Barbiturates: Samples containing greater than 200 ng/mL secobarbital or other cross-reacting barbiturate compounds are reported as positive. False positive and false negative results are possible. Confirmatory testing required for definitive results. Current Interpretive Data was last reviewed 2023. Benzodiazepines, ur Screen Positive, presumptive (A) CutOff 100ng/mL [facility] Comment: Interpretive Data - Benzodiazepines: Samples containing greater than 100 ng/mL nordiazepam or other cross-reacting compounds are reported as positive. False positive and false negative results are possible. Confirmatory testing required for definitive results. Current Interpretive Data was last reviewed 2023. Cannabinoids, ur Not Detected CutOff 50 ng/mL [facility] Comment: Interpretive Data - Cannabinoids: Samples containing greater than 50 ng/mL delta-9 THC -COOH or other cross- reacting compounds are reported as positive. False positive and false negative results are possible. Confirmatory testing required for definitive results. Current Interpretive Data was last reviewed 2023. Cocaine, ur Not Detected CutOff 150ng/mL [facility] Comment: Interpretive Data - Cocaine: Samples containing greater than 150 ng/mL benzoylecgonine or other cross- reacting compounds are reported as positive. False positive and false negative results are possible. Confirmatory testing required for definitive results. Current Interpretive Data was last reviewed 2023. Fentanyl, Ur Not Detected CutOff 5 ng/mL [facility] Comment: Interpretive Data - Fentanyl: Samples containing greater than 5 ng/mL norfentanyl, fentanyl, or other cross-reacting fentanyl compounds are reported as positive. False positive and false negative results are possible. Confirmatory testing required for definitive results. Current Interpretive Data was last reviewed 2023. Methadone, ur Not Detected CutOff 300ng/mL [facility] Comment: Interpretive Data - Methadone: Samples containing greater than 300 ng/mL d,l-methadone or other cross-reacting compounds are reported as positive. False positive and false negative results are possible. Confirmatory testing required for definitive results. Current Interpretive Data was last reviewed 2023. Opiates, ur Not Detected CutOff 300ng/mL [facility] Comment: Interpretive Data - Opiates: Samples containing greater than 300 ng/mL morphine or other cross-reacting compounds are reported as positive. False positive and false negative results are possible. Confirmatory testing required for definitive results. Current Interpretive Data was last reviewed 2023. Oxycodone, ur Not Detected CutOff 100ng/mL [facility] Comment: Interpretive Data - Oxycodone: Samples containing greater than 100 ng/mL oxycodone or other cross-reacting compounds are reported as positive. False positive and false negative results are possible. Confirmatory testing required for definitive results. Current Interpretive Data was last reviewed 2023. Phencyclidine, ur Not Detected CutOff 25 ng/mL [facility] Comment: Interpretive Data - Phencyclidine: Samples containing greater than 25 ng/mL phencyclidine or other cross-reacting compounds are reported as positive. False positive and false negative results are possible. Confirmatory testing required for definitive results. Current Interpretive Data was last reviewed 2023. Urine Creatinine 46 mg/dL [facility] Comment: Interpretive Data Urine Creatinine: < 10 mg/dL is extremely dilute = or > 10 but < 20 mg/dL is dilute = or > 20 mg/dL is normal Current Interpretive Data was last revised on 2017. Urine 12/24/2024 8:39 PM CDT 12/24/2024 8:55 PM CDT [facility]ative [facility] - 12/24/2024 9:42 PM CDT Drug of Abuse screening is performed by immunoassay for medical purposes only. This is not to be used for Pain Management purposes. us Hubert Ulrich MD LAB URINE ORDERABLES Final Result [facility] [address] [facility] [place] [address] * XR Clavicle Bilateral Complete (12/24/2024 8:10 [...] Trop I hs delta -1 ng/L [facility] Trop I hs interp Insignificant [facility] Blood 12/24/2024 4:25 PM CDT 12/24/2024 4:44 PM CDT us Hubert Ulrich MD LAB BLOOD ORDERABLES Final Result [facility] [address] [facility] [place] [address] * CT Head WO Contrast (12/24/2024 3:11 [...] the ED Hubert Ulrich MD Resident 12/24/24 [id number] Hubert Ulrich MD ECG ORDERABLES Final Resu [...] BLOOD ORDERABLES Final Result Performing Organization Address City/[facility]/ZIP Co de Phone Number [facility] [place] [address] * eGFR (12/24/2024 2:33 PM CDT) eGFR [...] Ulrich MD LAB BLOOD ORDERABLES Final Result [facility] [address] [facility] [place] [address] * (ABNORMAL) Differential, auto (12/24/2024 2:33 PM CDT) Neutrophil abs 5.01 1.50 - 6.50 K/cumm Imm gran abs 0.03 0.00 - 0.10 K/cumm [facility] Lymphocyte abs 1.21 0.80 - 3.30 K/cumm [facility] Monocyte abs 1.35(H) 0.20 - 0.80 K/cumm [facility] Eosinophil abs 0.21 0.00 - 0.50 K/cumm [facility] Basophil abs 0.05 0.00 - 0.10 K/cumm [facility] Neutrophil pct 63.7 % [facility] Comment: Interpretive Data Percent cell count reference ranges are not reported, since discordance with absolute values may lead to misinterpretation of CBC data. Current Interpretive Data was last revised on 2017. Imm gran pct 0.4 % [facility] Comment: Interpretive Data Percent cell count reference ranges are not reported, since discordance with absolute values may lead to misinterpretation of CBC data. Current Interpretive Data was last revised on 2017. Lymphocyte pct 15.4 % [facility] Comment: Interpretive Data Percent cell count reference ranges are not reported, since discordance with absolute values may lead to misinterpretation of CBC data. Current Interpretive Data was last revised on 2017. Monocyte pct 17.2 % [facility] Comment: Interpretive Data Percent cell count reference ranges are not reported, since discordance with absolute values may lead to misinterpretation of CBC data. Current Interpretive Data was last revised on 2017. Eosinophil pct 2.7 % [facility] Comment: Interpretive Data Percent cell count reference ranges are not reported, since discordance with absolute values may lead to misinterpretation of CBC data. Current Interpretive Data was last revised on 2017. Basophil pct 0.6 % [facility] Comment: Interpretive Data Percent cell count reference ranges are not reported, since discordance with absolute values may lead to misinterpretation of CBC data. Current Interpretive Data was last revised on 2017. Blood 12/24/2024 2:33 PM CDT 12/24/2024 3:01 PM CDT us Hubert Ulrich MD LAB BLOOD ORDERABLES Final Result [facility] [address] [facility] [place] [address] * Pro B-type natriuretic peptide (12/24/2024 2:33 [...] BLOOD ORDERABLES Final Result Performing Organization Address [facility] Co de Phone Number [facility] [place] [address] * (ABNORMAL) CBC with auto differential (12/24/2024 2:33 PM CDT) [facility] WBC 7.86 3.80 - 9.90 K/cumm Hgb 13.5 13.0 - 17.5 g/dL [facility] Hct 39.5 38.9 - 50.3 % [facility] Plt 298 150 - 400 K/cumm [facility] MPV 9.9 9.1 - 12.3 fL [facility] RBC 3.90(L) 4.30 - 5.80 M/cumm [facility] MCV 101.3(H) 81.3 - 96.4 fL [facility] MCH 34.6(H) 27.1 - 33.3 pg [facility] MCHC 34.2 32.3 - 35.7 g/dL [facility] RDW CV 13.2 11.1 - 14.9 % [facility] RDW SD 48.9(H) 35.7 - 48.1 fL [facility] NRBC abs 0.00 0.00 - 0.01 K/cumm [facility] Blood 12/24/2024 2:33 PM CDT 12/24/2024 3:01 PM CDT Hubert Ulrich MD LAB BLOOD ORDERABLES Final Result Performing Organization Address [facility]/ZIP Co de Phone Number [facility] [place] [address] * TSH (12/24/2024 2:33 PM CDT) [facility] Thyroid Stimulating Hormone 2.12 0.30 - 4.20 mcIUnit/mL Blood 12/24/2024 2:33 PM CDT 12/24/2024 3:01 PM CDT Tessa Almonte MD LAB BLOOD ORDERABLES F inal Result Performing Organization Address [facility] Co de Phone Number [facility] [place] [address] * Phosphorus (12/24/2024 2:33 PM CDT) [facility] Phosphorus, pl 2.9 2.3 - 4.5 mg/dL Blood 12/24/2024 2:33 PM CDT 12/24/2024 3:01 PM CDT Hubert Ulrich MD LAB BLOOD ORDERABLES Final Result Performing Organization Address [facility] de Phone Number [place] [address] * Magnesium (12/24/2024 2:33 PM CDT) [facility] Magnesium 1.9 1.4 - 2.5 mg/dL Blood 12/24/2024 2:33 PM CDT 12/24/2024 3:01 PM CDT Hubert Ulrich MD LAB BLOOD ORDERABLES Final Result Performing Organization Address [facility] [place] [address] * Hemoglobin A1c (12/24/2024 2:33 PM CDT) [facility] Hgb A1C 5.0 4.0 - 5.6 % Estimated Average Glucose 97 mg/dL [facility] Comment: The ADA recommends reporting an [...] ORDERABLES F inal Result Performing Organization Address [facility] de Phone Number [facility] [place] [address] * Vitamin B12 (12/24/2024 2:33 PM CDT) Vitamin B12 390 230 - 1,250 pg/mL Blood 12/24/2024 2:33 PM CDT 12/24/2024 3:01 PM CDT Result [facility] Tessa Almonte MD LAB BLOOD ORDERABLES F inal Result Performing Organization Address [facility] de Phone Number [facility] [place] [address] * (ABNORMAL) Phenytoin level, total (12/24/2024 2:33 [...] BLOOD ORDERABLES Final Result Performing Organization Address [facility]/State/ZIP Co de Phone Number [facility] [place] [address] * (ABNORMAL) Basic metabolic panel (12/24/2024 2:33 PM CDT) Sodium 139 135 - 145 mmol/L Potassium, pl 4.5 3.3 - 4.9 mmol/L [facility] Chloride 101 97 - 110 mmol/L [facility] CO2 30 22 - 32 mmol/L [facility] Anion gap 8 2 - 15 mmol/L [facility] BUN 13 6 - 25 mg/dL [facility] Creatinine 0.64(L) 0.80 - 1.30 mg/dL [facility] Glucose 110 70 - 199 mg/dL [facility] Comment: Interpretive Data Fasting glucose >/= [...] 2022. Calcium 8.6 8.5 - 10.3 mg/dL [facility] Blood 12/24/2024 2:33 PM CDT 12/24/2024 3:01 PM CDT us Hubert Ulrich MD LAB BLOOD ORDERABLES Final Result [facility] [place] [address] * XR Pelvis 1 or 2 Views [...] sult from Last 3 Months Insurance MEDICARE INVERNESS MEDICARE SUPPLEMENT [employer] MEDICARE SUPPLEMENT MEDICARE Advance Directives For more information, please contact: [phone] * Full Code (Latest Code Status on File) Date Activated Date Inactivated Comments 12/24/2024 10:36 PM 12/29/2024 10:40 PM Care Teams Veterinary Epidemiologist Relationship Specialty Start Date End Date Vinicio Diane III, DO [address] [place] [address] PCP - General Family Medicine 12/21/21 Douglas Hernandez III, MD [address] [place] [address] Referring Physician Neurology 12/29/24
--- OUTSIDE RECORDS SUMMARY | 2025-02-03 22:20 | XMS_ITS | Continuity of Care Document ---
Author Organization [facility] Address [address] [place] [address] Phone Care Team Providers Care Window Treatment Installer Name Role Phone Loree De La Vega DO Unavailable Unavailable Advance Directives Directive Yes / No Effective Date File Name No Information Encounters Encounter Description Practice Location Reason(s) For Visit Diagnoses Date Provider Providers Copied on Encounter [facility], [address], [place], [place], [id number], [place] tel:[phone] [facility] No Information [address] [place], [place], [id number], [place]. tel:[phone] Family History Family Member Type Diagnosis Age At Onset No Information Payers Payer name Insurance type Covered alliance party ID Authoriza tion(s) No Information Social [...]
--- NOTE | 2025-02-03 22:56 | ED.LOWEXIN ---
HPI - Extremity Injury (Lower) General Chief Complaint: Extremity Injury, Lower <Emily Troy APRN - Last Filed: 02/04/25 01:13> Stated Complaint: broke my toes last friday, fever x 2 days, jaw h <Emily Troy APRN - Last Filed: 02/04/25 01:13> Time Seen by Provider: 02/03/25 21:44 <Emily Troy APRN - Last Filed: 02/04/25 01:13> History of Present Illness HPI Narrative: Patient is a 74-year-old male who presents to the ER with pain in his 2nd and 3rd toes on his left foot. He reports approximately 10 days ago he hit his left foot on the handle of a cooler. Patient reports he caught himself before he hit the ground but he injured his 2nd digit. He reports pain has continued to worsen. Patient reports he went swimming on Friday and ever since has had jaw pain. He denies any dental issues, chest pain, shortness of breath, neck tightness, mastoid tenderness. Patient endorses history of cardiac stents and thoracic outlet surgery. He denies any history of high blood pressure, diabetes, or gout. Patient endorses a headache that comes with his recent fevers. <Emily Troy APRN - Last Filed: 02/04/25 01:13> Related Data Allergies/Adverse Reactions: Allergies Allergy/AdvReac Type Severity Reaction Status Date / Time Penicillins Allergy Intermediate Swelling Verified 12/29/24 21:30 <Emily Troy APRN - Last Filed: 02/04/25 01:13> Review of Systems Review of Systems: All systems reviewed & are unremarkable except as noted in HPI and below <Emily Troy APRN - Last Filed: 02/04/25 01:13> PMFSH Past Medical History Medical History: Medical History CAD (coronary artery disease) HLD (hyperlipidemia) Seizure disorder <Emily Troy APRN - Last Filed: 02/04/25 01:13> Social History Social History: Social History Smoking status: Never smoker <Emily Troy APRN - Last Filed: 02/04/25 01:13> Exam Narrative: GENERAL: Well appearing, well-nourished, non-toxic, in no acute distress. HEAD: Normocephalic, atraumatic. NECK: Supple. No adenopathy, no masses. Jaw pain along entire lower jaw bone, without swelling, no increased pain with palpation RESPIRATORY: Airway patent, respirations nonlabored. Clear to auscultation bilaterally, no rales, rhonchi, wheezing. CARDIOVASCULAR: Regular rate and rhythm without murmurs, rubs, or gallops. Peripheral pulses 2+ and equal bilaterally. ABDOMINAL: Soft, nontender, nondistended, no hepatosplenomegaly. Normoactive BS. MUSCULOSKELETAL: Moves all extremities. Strength/ROM intact. Pt's 2nd and 3rd digits on L foot swollen and bruised with full ROM. SKIN: Warm, dry, normal color. No rashes. NEURO: A&O X3. Speech clear. Cranial nerves II-XII intact. No ataxic movements. PSYCHIATRIC: Appropriate mood and affect. Normal interaction. <Emily Troy APRN - Last Filed: 02/04/25 01:13> Course [employer]ICY PROFESSOR/PA Physician Supervision This visit was performed by both a physician and an APC. I performed all aspects of the MDM as documented. <Vignesh Ruiz MD - Last Filed: 02/04/25 02:09> Vital Signs Vital signs: Vital Signs Temperature 98.3 F 02/03/25 21:46 Pulse Rate 105 H 02/03/25 21:46 Respiratory Rate 20 02/03/25 21:46 Blood Pressure 173/86 H 02/03/25 21:46 Pulse Oximetry 97 02/03/25 21:46 Oxygen Delivery Room Air 02/03/25 21:46 Temperature 98.3 F 02/03/25 21:46 Pulse Rate 79 02/04/25 01:56 Respiratory Rate 19 02/04/25 01:56 Blood Pressure 117/65 02/04/25 01:56 Pulse Oximetry 96 02/04/25 01:56 Oxygen Delivery Room Air 02/03/25 21:46 <Emily Troy APRN - Last Filed: 02/04/25 01:13> Vital Signs Temperature 98.3 F 02/03/25 21:46 Pulse Rate 105 H 02/03/25 21:46 Respiratory Rate 20 02/03/25 21:46 Blood Pressure 173/86 H 02/03/25 21:46 Pulse Oximetry 97 02/03/25 21:46 Oxygen Delivery Room Air 02/03/25 21:46 Temperature 98.3 F 02/03/25 21:46 Pulse Rate 79 02/04/25 01:56 Respiratory Rate 19 02/04/25 01:56 Blood Pressure 117/65 02/04/25 01:56 Pulse Oximetry 96 02/04/25 01:56 Oxygen Delivery Room Air 02/03/25 21:46 <Vignesh Ruiz MD - Last Filed: 02/04/25 02:09> MDM - Extremity Injury (Lower) MDM Narrative Medical decision making narrative: Patient is a 74-year-old male who presents to the ER with pain in his 2nd and 3rd toes on his left foot. He reports approximately 10 days ago he hit his left foot on the handle of a cooler. Patient reports he caught himself before he hit the ground but he injured his 2nd digit. He reports pain has continued to worsen. Patient reports he went swimming on Friday and ever since has had jaw pain. He denies any dental issues, chest pain, shortness of breath, neck tightness, mastoid tenderness. Patient endorses history of cardiac stents and thoracic outlet surgery. He denies any history of high blood pressure, diabetes, or gout. Patient endorses a headache that comes with his recent fevers. Labs Ordered: CBC, CMP, lactic acid, troponin, proBNP, COVID/flu/RSV, PTT, INR, ethanol, UA, UDS Imaging Ordered: Chest x-ray, left foot x-ray Medications Ordered: Tylenol 1 g, heparin bolus, heparin drip, Nitro SL, 1L NS IV bolus Results: Patient's CBC indicates a white blood cell count of 15.1, RBCs 3.85, hemoglobin of 13.4, hematocrit of 39.6%. His CMP indicates a sodium of 133, carbon dioxide of 20, creatinine of 0.54, glucose of 118, lactic acid of 2.5, calcium of 8.3, AST of 216, ALT of 119, alk-phos of 248, total protein of 8.6. Patient's initial troponin was 16.3. His proBNP was 695. Patient's COVID/flu/RSV was negative. Diagnosis: non-STEMI, elevated troponin Consults: 0020- Spoke with central communications specialist, Dr. Garcia, who advised pt should be started on a heparin gtt with an initial heparin bolus. Pt should be NPO, as Dr. 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 She also advised pt's jaw pain be treated, starting with Nitro SL. Patient Education/Shared MDM: Results of lab work and imaging shared with patient. Patient reports he is not a daily alcohol drinker and reports he last drank alcohol approximately 10 days ago. It was advised patient be admitted to the hospital for further evaluation and assessment. Patient verbalizes understanding and is in agreement with plan. 0100-Spoke with hospitalist, Wanda Storm, who agrees to admit pt to the hospital. He will be admitted to the IMU and continued on a heparin drip. <Emily Troy APRN - Last Filed: 02/04/25 01:13> Differential Diagnosis Differential diagnosis: Likely other (STEMI, non STEMI, sepsis, elevated LFTs) <Emily Troy APRN - Last Filed: 02/04/25 01:13> Lab Data Attestation: I reviewed the patient's lab results. <Emily Troy APRN - Last Filed: 02/04/25 01:13> Result diagrams: 02/03/25 23:03 02/03/25 23:03 <Emily Troy APRN - Last Filed: 02/04/25 01:13> Labs: Lab Results 02/03/25 02/04/25 Range/Units 23:03 01:01 WBC 15.1 H (4.5-10.0) K/mm3 RBC 3.85 L (4.6-6.20) M/mm3 Hgb 13.4 L (14.0-18.0) g/dL Hct 39.6 L (42.0-52.0) % MCV 102.9 H (80-100) fl MCH 34.8 H (26-34) pg MCHC 33.8 (32-36) g/dl RDW 13.4 (11.5-14.5) % Plt Count 304 (150-375) k/mm3 MPV 10.3 (7.4-10.4) fl Immature Gran % (Auto) 0.4 (0-0.5) % Neut % (Auto) 80.4 H (45.5-73.1) % Lymph % (Auto) 4.8 L (18.3-44.2) % [place] % (Auto) 13.6 H (2.6-8.5) % Eos % (Auto) 0.3 (0-4.4) % Baso % (Auto) 0.5 (0.2-1.2) % Lymph # (Auto) 0.73 L (0.9-3.2) K/mm3 [place] # (Auto) 2.1 H (0.1-0.6) K/mm3 Eos # (Auto) 0.1 (0-0.3) K/mm3 Baso # (Auto) 0.1 (0.0-0.1) K/mm3 Abs Immat Gran (auto) 0.06 H (0.00-0.031) K/mm3 Absolute Neuts (auto) 12.1 H (1.3-6.7) K/mm3 Absolute Nucleated RBC 0.000 (0.0-0.012) K/mm3 Band Neutrophils % 0 (0-6) % Nucleated RBC % 0.0 (0.0-0.2) % Platelet Estimate Adequate (Adequate) Schistocytes None seen PT 14.5 (11.1-14.7) Seconds INR 1.1 APTT 26.4 (22.3-36.8) Seconds Sodium 133 L (137-145) mmol/L Potassium 3.8 (3.4-5.0) mmol/L Chloride 102 (98-107) mmol/L Carbon Dioxide 20 L (22-30) mmol/L Anion Gap 11 (4-12) mmol/L BUN 10 (9-20) mg/dL Creatinine 0.54 L (0.7-1.3) mg/dL Estim Creat Clear Calc 120 ml/min Estimated GFR > 60 (59 - ) Glucose 119 H (65-110) mg/dL Lactic Acid 2.5 H (0.7-2.0) mmol/L Calcium 8.3 L (8.4-10.2) mg/dL Total Bilirubin 0.7 (0.2-1.3) mg/dL AST 216 H (17-59) U/L ALT 119 H (6-50) U/L Alkaline Phosphatase 248 H (38-126) U/L Troponin I 16.300 H* (0.000-0.034) ng/mL NT-Pro-B Natriuret Pep 694 H (19.9-100) pg/mL Total Protein 8.6 H (6.3-8.2) g/dL Albumin 4.2 (3.5-5.1) g/dL Influenza A (RT-PCR) Negative (Negative) Influenza B (RT-PCR) Negative (Negative) RSV (RT-PCR) Negative (Negative) SARS-CoV-2 RNA (RT-PCR) Negative (Negative) <Emily Troy, DISPLAY ASSOCIATE - Last Filed: 02/04/25 01:13> Lab Results 02/03/25 02/04/25 Range/Units 23:03 01:01 WBC 15.1 H (4.5-10.0) K/mm3 RBC 3.85 L (4.6-6.20) M/mm3 Hgb 13.4 L (14.0-18.0) g/dL Hct 39.6 L (42.0-52.0) % MCV 102.9 H (80-100) fl MCH 34.8 H (26-34) pg MCHC 33.8 (32-36) g/dl RDW 13.4 (11.5-14.5) % Plt Count 304 (150-375) k/mm3 MPV 10.3 (7.4-10.4) fl Immature Gran % (Auto) 0.4 (0-0.5) % Neut % (Auto) 80.4 H (45.5-73.1) % Lymph % (Auto) 4.8 L (18.3-44.2) % [place] % (Auto) 13.6 H (2.6-8.5) % Eos % (Auto) 0.3 (0-4.4) % Baso % (Auto) 0.5 (0.2-1.2) % Lymph # (Auto) 0.73 L (0.9-3.2) K/mm3 [place] # (Auto) 2.1 H (0.1-0.6) K/mm3 Eos # (Auto) 0.1 (0-0.3) K/mm3 Baso # (Auto) 0.1 (0.0-0.1) K/mm3 Abs Immat Gran (auto) 0.06 H (0.00-0.031) K/mm3 Absolute Neuts (auto) 12.1 H (1.3-6.7) K/mm3 Absolute Nucleated RBC 0.000 (0.0-0.012) K/mm3 Band Neutrophils % 0 (0-6) % Nucleated RBC % 0.0 (0.0-0.2) % Platelet Estimate Adequate (Adequate) Schistocytes None seen PT 14.5 (11.1-14.7) Seconds INR 1.1 APTT 26.4 (22.3-36.8) Seconds Sodium 133 L (137-145) mmol/L Potassium 3.8 (3.4-5.0) mmol/L Chloride 102 (98-107) mmol/L Carbon Dioxide 20 L (22-30) mmol/L Anion Gap 11 (4-12) mmol/L BUN 10 (9-20) mg/dL Creatinine 0.54 L (0.7-1.3) mg/dL Estim Creat Clear Calc 120 ml/min Estimated GFR > 60 (59 - ) Glucose 119 H (65-110) mg/dL Lactic Acid 2.5 H (0.7-2.0) mmol/L Calcium 8.3 L (8.4-10.2) mg/dL Total Bilirubin 0.7 (0.2-1.3) mg/dL AST 216 H (17-59) U/L ALT 119 H (6-50) U/L Alkaline Phosphatase 248 H (38-126) U/L Troponin I 16.300 H* (0.000-0.034) ng/mL NT-Pro-B Natriuret Pep 694 H (19.9-100) pg/mL Total Protein 8.6 H (6.3-8.2) g/dL Albumin 4.2 (3.5-5.1) g/dL Influenza A (RT-PCR) Negative (Negative) Influenza B (RT-PCR) Negative (Negative) RSV (RT-PCR) Negative (Negative) SARS-CoV-2 RNA (RT-PCR) Negative (Negative) <Vignesh Ruiz MD - Last Filed: 02/04/25 02:09> Imaging Data Attestation: I personally reviewed and interpreted this imaging study as follows: <Emily Troy APRN - Last Filed: 02/04/25 01:13> Radiologist's impression: Impressions Chest X-Ray 02/03/25 23:18 IMPRESSION: No acute cardiopulmonary pathology. Foot X-Ray 02/03/25 23:19 IMPRESSION: No acute osseous abnormality left foot. <Emily Troy APRN - Last Filed: 02/04/25 01:13> Discharge Plan Discharge Clinical Impression: Non-ST elevated myocardial infarction (non-STEMI), Elevated troponin, Jaw pain <Emily Troy APRN - Last Filed: 02/04/25 01:13> Patient Disposition: Still a Patient <Emily Troy APRN - Last Filed: 02/04/25 01:13> Condition: Guarded Prognosis <Emily Troy APRN - Last Filed: 02/04/25 01:13> Patient Language: Martiniquais <Emily Troy APRN - Last Filed: 02/04/25 01:13> Prescriptions: No Action cephalexin 500 mg capsule 500 mg PO Q8H Qty: 15 0RF cyclobenzaprine 10 mg Tablet 5 mg PO TID Qty: 60 0RF atorvastatin 80 mg Tablet 80 mg PO QHS Qty: 30 0RF lidocaine [Lidocaine Pain Relief] 4 % Adhesive Patch,Medicated 1 patch transdermal DAILY Qty: 10 0RF polyethylene glycol 3350 [Miralax] 17 gram Powder In Packet 17 g PO QAM Qty: 0 0RF phenytoin sodium extended [Dilantin Extended] 100 mg Capsule 100 mg PO TID Qty: 90 0RF primidone 250 mg Tablet 500 mg PO BID Qty: 60 0RF metoprolol tartrate 50 mg Tablet 50 mg PO DAILY Qty: 60 0RF aspirin [Children's Aspirin] 81 mg Tablet,Chewable 81 mg PO DAILY@0800 Qty: 30 0RF cholecalciferol (vitamin D3) [Vitamin D3] 25 mcg (1,000 unit) Tablet 25 mcg PO DAILY Qty: 30 0RF <Emily Troy APRN - Last Filed: 02/04/25 01:13> Follow-up/Referrals: PHYSICIAN,AIR PLANT ENGINEER [Primary Care Provider] - <Emily Troy APRN - Last Filed: 02/04/25 01:13>
[2025-02-03 23:02] VITALS: BP 130/64; PULSE 90; RESP 18; O2SAT 97
[2025-02-03 23:30] LABS: Basophils Absolute Auto 0.1 K/mm3 (0.0-0.1); Basophils Percent Auto 0.5 % (0.2-1.2); Eosinophils Absolute Auto 0.1 K/mm3 (0-0.3); Eosinophils Percent Auto 0.3 % (0-4.4); Hematocrit 39.6 % (42.0-52.0); Hemoglobin 13.4 g/dL (14.0-18.0); Immature Granulocyte Absolute 0.06 K/mm3 (0.00-0.031); Immature Granulocyte Percent A 0.4 % (0-0.5); Lymphocytes Absolute Auto 0.73 K/mm3 (0.9-3.2); Lymphocytes Percent Auto 4.8 % (18.3-44.2); Mean Corpuscular HGB Conc 33.8 g/dl (32-36); Mean Corpuscular Hemoglobin 34.8 pg (26-34); Mean Corpuscular Volume 102.9 fl (80-100); Mean Platelet Volume 10.3 fl (7.4-10.4); Monocytes Absolute Auto 2.1 K/mm3 (0.1-0.6); Monocytes Percent Auto 13.6 % (2.6-8.5); Neutrophils Absolute Auto 12.1 K/mm3 (1.3-6.7); Neutrophils Percent Auto 80.4 % (45.5-73.1); Platelet Count Result 304 k/mm3 (150-375); Red Blood Count 3.85 M/mm3 (4.6-6.20); Red Cell Distribution Width 13.4 % (11.5-14.5); White Blood Count 15.1 K/mm3 (4.5-10.0)
[2025-02-03] MEDS: ACETAMINOPHEN 500 MG TABLET 1000 MG PO (23:33)
--- NOTE | 2025-02-03 23:43 | PC.NURSE ---
Assumed care of patient at 1925 after receiving bedside report from Shyla Mendez RN.
[2025-02-03 23:44] LABS: Alanine Aminotransferase 119 U/L (6-50); Albumin Level 4.2 g/dL (3.5-5.1); Alkaline Phosphatase 248 U/L (38-126); Anion Gap 11 mmol/L (4-12); Aspartate Amino Transferase 216 U/L (17-59); Bilirubin,Total 0.7 mg/dL (0.2-1.3); Blood Urea Nitrogen 10 mg/dL (9-20); Calcium 8.3 mg/dL (8.4-10.2); Carbon Dioxide 20 mmol/L (22-30); Chloride 102 mmol/L (98-107); Estimated CRCL calculation 120 ml/min; Estimated Glomerular Filt Rate > 60; Glucose 119 mg/dL (65-110); Potassium 3.8 mmol/L (3.4-5.0); Sodium 133 mmol/L (137-145); Total Protein 8.6 g/dL (6.3-8.2)
[2025-02-03 23:48] LABS: Lactic Acid Reflex 2.5 mmol/L (0.7-2.0)
[2025-02-03 23:58] LABS: Band Neutrophils Percent 0 % (0-6); Platelet Estimate Adequate (Adequate); Schistocytes None Seen
[2025-02-03 23:59] LABS: NT Pro B Type Natriuretic Pept 694 pg/mL (19.9-100)
[2025-02-04] VITALS (38 sets, daily range): BP systolic 114–169; BP diastolic 60–122; PULSE 74–145; RESP 12–28; TEMP 36.5–37.7; O2SAT 92–100; BMI 31.2
--- NOTE | 2025-02-04 | ECHO_ITS ---
Patient Info Name: Gavin Tubbs Age: 74 years : 1950 Gender: Male Ht: 71 in Wt: 223 lbs BSA: 2.28 m2 HR: 74 bpm BP: 137 / 66 mmHg Heart Rhythm: Sinus Rhythm Technical Quality: Poor Exam Date: 02/04/2025 2:29 PM Patient Status: I Admit Date: 02/04/2025 Exam Type: CA echo dop color flow w con Complete two-dimensional, color flow and Doppler transthoracic echocardiogram is performed with contrast to opacify the left ventricle and to improve the deliniation of the left ventricle endocardial borders. Staff Referring Physician: Wanda NICOLE Blow Machine Tender Starch Spraying: Alicia Christine Attending Provider: Seble Juan Contrast/Agitated Saline Contrast/Ag. Saline: Definity Amount: 2.00 ml Administered By: Alicia Christine Existing IV Access: Yes IV Access Condition: patent with no signs of infiltration Summary 1. Overall normal biventricular size and systolic function. 2. The inferolateral wall does appear to be mildly hypokinetic. 3. Technically difficult study with poorly visualized acoustic windows. Left Ventricle The left ventricle is normal in size and systolic function. The left ventricular ejection fraction is visually estimated to be 60-65%. Poor acoustic windows however does appear that the entire inferolateral wall is mildly hypokinetic. Right Ventricle The right ventricle is grossly normal in size and systolic function. Left Atria The left atrium is normal size. Right Atria The right atrium is normal size. Atrial Septum The atrial septum is not well visualized. Aortic Valve The aortic valve is not well visualized. There is no hemodynamic significant aortic stenosis by Doppler gradients. Pulmonic Valve The pulmonic valve is not well visualized. There is no color Doppler evidence of pulmonic valve regurgitation. Mitral Valve There is no mitral regurgitation. Tricuspid Valve The tricuspid valve is not well visualized. Pericardium/Pleural The pericardium is not well visualized. Inferior Vena Cava The inferior vena cava is not seen. Aorta The aorta is not well visualized. Left Ventricular Outflow Tract Name Value Normal LVOT 2D LVOT Diameter 2.1 cm LVOT Doppler LVOT Peak Velocity 103 cm/s LVOT Peak Gradient 4 mmHg LVOT Mean Gradient 2 mmHg LVOT VTI 15 cm LVOT VTI/AV VTI Ratio 0.7 LVOT Stroke Volume 52 ml LVOT CO 4.9 l/min LVOT CI 2.2 l/min/m2 Mitral Valve Name Value Normal MV Diastolic Function MV E Peak Velocity 66 cm/s MV A Peak Velocity 94 cm/s MV E/A 0.7 MV Decel Time (PW) 139 ms MV Annular TDI MV E/e' (Septal) 10.3 MV E/e' (Lateral) 12.7 MV E/e' (Average) 11.5 Tricuspid Valve Name Value Normal TV Annular TDI TV Lateral Amalia s' Velocity 15.0 cm/s >=9.5 Aortic Valve Name Value Normal AV Doppler AV Peak Velocity 138 cm/s AV Peak Gradient 8 mmHg AV Mean Gradient 5 mmHg AV VTI 22 cm AV Area (Cont Eq VTI) 2.3 cm2 >=3.0 AV Area (Cont Eq Fausto) 2.5 cm2 AV DI (Fausto) 0.75 AV Regurgitation 2D LVOT Area 3.4 cm2 Ventricles Name Value Normal LV Dimensions 2D/MM IVS Diastolic Thickness (2D) 1.0 cm 0.6-1.0 LVID Diastole (2D) 5.6 cm 4.2-5.8 LVIW Diastolic Thickness (2D) 1.0 cm 0.6-1.0 LVID Systole (2D) 4.4 cm 2.5-4.0 LVOT Diameter 2.1 cm LV Mass (2D Cubed) 224.58 g 88.00-224.00 LV Mass Index (2D Cubed) 99 g/m2 49-115 Relative Wall Thickness (2D) 0.36 <=0.42 LV Fractional Shortening/Ejection Fraction 2D/MM LV Fractional Shortening (2D) 21 % 25-43 LV EF (2D Teichholz) 41 % LV Diastolic Volume (4C MOD) 46 ml LV EF (4C MOD) 44 % LV Diastolic Volume (2C MOD) 43 ml LV EF (2C MOD) 35 % LV Diastolic Volume (BP MOD) 45 ml 62-150 LV Diastolic Volume Index (BP MOD) 20 ml/m2 34-74 LV Systolic Volume (BP MOD) 27 ml 21-61 LV Systolic Volume Index (BP MOD) 12 ml/m2 11-31 LV EF (BP MOD) 40 % 52-72 LV Diastolic Length (4C) 7.1 cm LV Systolic Length (4C) 6.2 cm LV Stroke Volume (4C MOD) 20 ml Atria Name Value Normal LA Dimensions LA Volume (4C A-L) 74 ml LA Volume (BP A-L) 73 ml RA Dimensions RA Area (4C) 10.9 cm2 <=18.0 Report Signatures
[2025-02-04 00:05] LABS: Influenza A QL RT-PCR Negative (Negative); Influenza B QL RT-PCR Negative (Negative); RSV RNA, RT-PCR Negative (Negative); SARS-CoV-2 RNA PCR Negative (Negative)
[2025-02-04] MEDS: NITROGLYCERIN SL 0.4 MG TABLET SUBLINGUAL ×3 (01:02→08:25)
[2025-02-04] MEDS: HEPARIN SOD/D5W 100 UNITS/ML 25,000 UNITS/250 ML BAG 10 UNITS IV CONT (01:03)
[2025-02-04] MEDS: SODIUM CHLORIDE 0.9% IV 1,000 ML 999 ML IV CONT (01:13)
[2025-02-04] MEDS: PHARMACIST COMMUNICATION ORDER 1 EACH XX (01:15)
--- NOTE | 2025-02-04 01:18 | PC.NURSE ---
Per Emily PORRAS, heparin is to be started prior to receiving results of patient's PTT & INR
[2025-02-04 01:26] LABS: INR 1.1; Prothrombin Time 14.5 Seconds (11.1-14.7)
[2025-02-04 01:26] LABS: Reflex Lactic Acid Yes or No Add Lactic
[2025-02-04 01:27] LABS: Partial Thromboplastin Time 26.4 Seconds (22.3-36.8)
--- NOTE | 2025-02-04 01:34 | ECG_ITS ---
Test Date: 2025-02-04 02:07:30 Measurements Intervals [place] Rate: 81 P: 44 IN: 170 QRS: 56 QRSD: 94 T: 85 QT: 382 QTc: 445 Interpretive Statements SINUS RHYTHM INCOMPLETE RIGHT BUNDLE BRANCH BLOCK BORDERLINE ST-T WAVE ABNORMALITY- HIGH LATEARL LEADS BASELINE ARTIFACT- I, II, AVR, AVL, AVF, V1 BORDERLINE ECG Compared to ECG 02/03/2025 22:07:17 NO SIGNIFICANT CHANGE Electronically Signed On 02-04-2025 06:29:33 CDT by Brayden Persaud D.O.
[2025-02-04 02:24] LABS: Ethanol < 10 mg/dL (<10); Lactic Acid 0.9 mmol/L (0.7-2.0)
--- NOTE | 2025-02-04 03:55 | PM.IMHP ---
H&P: HPI History of Present Illness Date/Time: 02/04/25 03:55 Chief Complaint: Jaw, arm, and toe pain. Narrative: This is a 74-year-old male with history of coronary artery disease and stents, hyperlipidemia, seizure disorder, anxiety, and history of fall who presented to the emergency department for evaluation of jaw, arm, and toe pain. Two days ago he went swimming, leisurely and not for exercise, and after he got of the pool he noticed some discomfort in his jaw. Over the course of the last 2 days he has continued to have intermittent discomfort in the jaw which is now radiating into the left arm and left axilla. The symptoms are similar to those he had prior to coronary stent placement several years ago at [facility] although he did not believe the symptoms were related to his heart as he had a normal stress test done a couple of months ago. He also complains of pain in his left 2nd and 3rd toes and takes a may be broken; last Friday he stubbed them on the handle of a cooler and they have been painful and swollen. He has not had a documented fever but has felt feverish. He denies sinus congestion, sore throat, cough, syncope, near syncope, pleuritic pain, shortness of breath, nausea, vomiting, diarrhea, and dysuria. At the time of my evaluation he is resting comfortably and has no complaints. In the ED: Vital signs on arrival include a temperature of 90.3?, blood pressure 173/86, pulse 105, SpO2 97% on room air. Labs were significant for WBC count of 15.1, hemoglobin 13.4, MCV 102.9, sodium 133, carbon dioxide 20, creatinine 0.54, lactic acid 2.5, total bilirubin 0.7, AST 216, ALT 119, alkaline phosphatase 48, troponin 16.300, proBNP 694. Chest and foot x-rays were unremarkable. EKG showed sinus rhythm showed minimal depression in V2. ED provider spoke with the on-call hat brusher machine and the patient was started on a heparin drip and will be NPO for probable cardiac catheterization later today. Review of Systems Review of Systems: 12 systems were reviewed and are negative except for as per HPI. [facility] Past Medical History Medical History (Updated 02/04/25 @ 04:04 by Wanda Storm PA-C) Hyperlipidemia Coronary artery disease Seizure disorder Surgical History Surgical History (Updated 02/04/25 @ 04:02 by Wanda Storm PA-C) History of spinal surgery for fractures of T7 through T10 History of cardiac catheterization Family History Family History Father CAD (coronary artery disease) Father Hypertension Social History Social History (Updated 02/04/25 @ 04:03 by Wanda Storm PA-C) Social History: Surrogate medical decision maker: Prema Fowler, daughter ([phone]). Code status: Full code. Smoking status: Never smoker Alcohol intake: former Substance use: former Do You Feel Safe in your Home?: Yes Lack of Transportation: No Lack of Food: Never True Current Housing: I Have Housing Concerned About Future Housing: No Difficulty Paying Gas/Electric Bills: No Difficulty Paying for Meds: No Currently Unemployed: No Education: Trade/Vocational Certificate Difficulty w/ Childcare or Family Care: No Spiritual care concerns: No Meds Home Medications and Allergies Home Medications ?Medication ?Instructions ?Recorded ?Confirmed ?Type aspirin 81 mg chewable tablet 81 mg PO DAILY@0800 #30 tabs 01/08/25 02/04/25 Rx (Children's Aspirin) atorvastatin 80 mg tablet 80 mg PO QHS #30 tabs 01/08/25 02/04/25 Rx cholecalciferol (vitamin D3) 25 25 mcg PO DAILY #30 tabs 01/08/25 02/04/25 Rx mcg (1,000 unit) tablet (Vitamin D3) cyclobenzaprine 10 mg tablet 5 mg (1/2 x 10 mg) PO TID #60 tabs 01/08/25 02/04/25 Rx metoprolol tartrate 50 mg tablet 50 mg PO DAILY #60 tabs 01/08/25 02/04/25 Rx phenytoin sodium extended 100 mg 100 mg PO TID #90 caps 01/08/25 02/04/25 Rx capsule (Dilantin Extended) primidone 250 mg tablet 500 mg (2 x 250 mg) PO BID #60 tabs 01/08/25 02/04/25 Rx Allergies Allergy/AdvReac Type Severity Reaction Status Date / Time Penicillins Allergy Intermediate Swelling Verified 12/29/24 21:30 Vital Signs Vital Signs - 24 hr 02/03/25 21:46 02/03/25 23:02 02/04/25 01:56 Temperature 98.3 F Pulse Rate 105 H 90 79 Respiratory Rate 20 18 19 Blood Pressure 173/86 H 130/64 117/65 Pulse Oximetry 97 97 96 Oxygen Delivery Room Air 02/04/25 02:18 02/04/25 02:49 Temperature 98.2 F Pulse Rate 81 88 Respiratory Rate 18 16 Blood Pressure 118/63 135/66 Pulse Oximetry 97 97 Oxygen Delivery Exam Narrative: General: Well-developed, nontoxic-appearing male in the semi-Rios position in bed. Weight: 101.6 kg. BMI: 31.2. HEENT: PERRL, EOMI. Sclera anicteric. Oral mucosa moist. Neck: Supple. Exam limited due to neck circumference. Respiratory: Lungs are clear to auscultation bilaterally. Cardiovascular: Regular rate and rhythm with S1-S2. Chest: No tenderness to palpation over the chest wall. Gastrointestinal: Abdomen is soft, nontender, and nondistended with positive bowel sounds. No guarding or rebound tenderness. Skin: Warm and dry. Musculoskeletal: Left 2nd and 3rd toes are mildly edematous with healing bruises. No gross deformities. Extremities: No cyanosis, clubbing, or edema. Radial and pedal pulses intact. Neurological: Alert. Cranial nerves 2-12 are grossly intact. No gross focal deficits to casual conversation. Psychiatric: Pleasant and cooperative with normal mood and affect. Judgment and insight intact. H&P: Results Labs Labs: Short CBC 02/03/25 Range/Units 23:03 WBC 15.1 H (4.5-10.0) K/mm3 Hgb 13.4 L (14.0-18.0) g/dL Hct 39.6 L (42.0-52.0) % Plt Count 304 (150-375) k/mm3 BMP 02/03/25 23:03 Sodium 133 L Potassium 3.8 Chloride 102 Carbon Dioxide 20 L BUN 10 Creatinine 0.54 L Glucose 119 H Calcium 8.3 L Cardiac Enzymes 02/03/25 02/04/25 Range/Units 23:03 02:03 Troponin I 16.300 H* 19.600 H* D (0.000-0.034) ng/mL Liver Function 02/03/25 Range/Units 23:03 Total Bilirubin 0.7 (0.2-1.3) mg/dL AST 216 H (17-59) U/L ALT 119 H (6-50) U/L Alkaline Phosphatase 248 H (38-126) U/L Albumin 4.2 (3.5-5.1) g/dL Imaging Chest X-Ray 02/03/25 23:18 IMPRESSION: No acute cardiopulmonary pathology. Foot X-Ray 02/03/25 23:19 IMPRESSION: No acute osseous abnormality left foot. Assessment and Plan Assessment and plan (1) Non-ST elevated myocardial infarction (non-STEMI): Code(s): I21.4 - Non-ST elevation (NSTEMI) myocardial infarction Status: Acute (2) Transaminitis: Code(s): R74.01 - Elevation of levels of liver transaminase levels Status: Acute (3) Macrocytic anemia: Code(s): D53.9 - Nutritional anemia, unspecified Status: Acute (4) Coronary artery disease: Code(s): I25.10 - Atherosclerotic heart disease of [place] coronary artery without angina pectoris Status: Acute (5) Hyperlipidemia: Code(s): E78.5 - Hyperlipidemia, unspecified Status: Acute (6) Seizure disorder: Code(s): G40.909 - Epilepsy, unspecified, not intractable, without status epilepticus Status: Acute Plan The patient presented to the emergency department with complaints of jaw, left arm, and left toe pain as detailed in HPI. Labs, imaging, EKG, and all reports were personally reviewed. He began experiencing pain in the jaw radiating to the left arm and left axilla 2 days ago after swimming leisurely. EKG showed perhaps very minimal ST depressions in V2 although his troponin was significantly elevated 16.300. Given his cardiac history, he has been started on a heparin drip and will be NPO in anticipation of cardiac catheterization later today. LFTs appear to be chronically elevated although are higher today than usual, AST > ALT, likely due to [place]. Continue to monitor for now and obtain a right upper quadrant ultrasound. He also has a macrocytic anemia which appears to be chronic though will obtain B12, folate, and iron studies as I do not see that this has been done previously, at least at this facility. Continue phenytoin and check level in a.m. The rest of his home medications will be reviewed and resumed as appropriate. Findings and treatment plan were discussed with the patient. Questions were solicited and answered to satisfaction. The patient's medical management will be taken over by the hospitalist team in a.m. Quality VTE Prophylaxis VTE prophylaxis: pharmacologic ordered (currently on heparin drip) Hospitalist [facility] Advance Care Plan I have confirmed that the patient's Advanced Care Plan is present, code status is documented, or surrogate decision maker is listed in patient medical record.: Yes Medication Reconciliation I have utilized all available resources to obtain, update and review the patients current medications (includes all prescriptions, OTC, herbals, cannabis, and nutritional supplements).: Yes
[2025-02-04 06:55] LABS: Hemoglobin 12.2 g/dL (14.0-18.0); Mean Corpuscular Hemoglobin 34.6 pg (26-34); Mean Corpuscular Volume 104.8 fl (80-100); Mean Platelet Volume 9.5 fl (7.4-10.4); Platelet Count Result 232 k/mm3 (150-375); Red Blood Count 3.53 M/mm3 (4.6-6.20); Red Cell Distribution Width 13.5 % (11.5-14.5); White Blood Count 12.4 K/mm3 (4.5-10.0)
[2025-02-04 07:05] LABS: INR 1.1; Prothrombin Time 14.5 Seconds (11.1-14.7)
[2025-02-04 07:06] LABS: Partial Thromboplastin Time 38.2 Seconds (22.3-36.8)
[2025-02-04 07:11] LABS: Phenytoin Dilantin 4 ug/mL (10-20)
--- NOTE | 2025-02-04 07:21 | P.PNIM_ITS ---
Progress Note: A&P Assessment and Plan (1) Non-ST elevated myocardial infarction (non-STEMI): Code(s): I21.4 - Non-ST elevation (NSTEMI) myocardial infarction Status: Acute Assessment and Plan: Pt to the ED on 02/03 for pain in his jaw that radiates to the LUE and left axilla x 2 days ago after swimming leisurely. -EKG showed perhaps very minimal ST depressions in V2 although his troponin was significantly elevated 16.300. -Given his cardiac history, he has been started on a heparin drip and will be NPO in anticipation of cardiac catheterization later 02/04 per on-call cards 02/04: Pt underwent cardiac cath today with stent placement. Due to Brilinta expense, pt will be loaded on Plavix this evening and started tomorrow on daily [address]mg Plavix. Dr. Gill ordered Plavix from [facility] meds to beds. To be observed overnight and D/C tomorrow. (2) Transaminitis: Code(s): R74.01 - Elevation of levels of liver transaminase levels Status: Acute Assessment and Plan: LFTs appear to be chronically elevated although are higher today than usual, AST > ALT, likely due to [place]. -Continue to monitor for now -RUQ US yielding cirrhosis of the liver, ordered repeat labs for the AM including hep panel (3) Macrocytic anemia: Code(s): D53.9 - Nutritional anemia, unspecified Status: Acute Assessment and Plan: Appears to be chronic -Obtained B12 (WDL), folate (WDL), and iron studies (unremarkable) as no record of these on file here -Can f/u with PCP upon discharge (4) Coronary artery disease: Code(s): I25.10 - Atherosclerotic heart disease of [place] coronary artery without angina pectoris Status: Acute Assessment and Plan: See above and below. (5) Hyperlipidemia: Code(s): E78.5 - Hyperlipidemia, unspecified Status: Acute Assessment and Plan: Continue Atorvastatin (6) Seizure disorder: Code(s): G40.909 - Epilepsy, unspecified, not intractable, without status epilepticus Status: Acute Assessment and Plan: Continue phenytoin and repeat level in a.m. -Level low 02/04 AM, continue to check level -Pt reports that he has not missed any doses but daughter endorses that he sees a neurologist at [place] and they have been titrating his Dilantin recently. Plan to f/u neuro as outpt, no seizure sx. -->Pt missed x1 dose today d/t cardiac cath Plan Pending AM labs and cirrhosis labs. D/C on Plavix. Subjective Date/time seen: 02/04/25 0820 Interval history: Per intake hospitalist: This is a 74-year-old male with history of coronary artery disease and stents, hyperlipidemia, seizure disorder, anxiety, and history of fall who presented to the emergency department for evaluation of jaw, arm, and toe pain. Two days ago he went swimming, leisurely and not for exercise, and after he got of the pool he noticed some discomfort in his jaw. Over the course of the last 2 days he has continued to have intermittent discomfort in the jaw which is now radiating into the left arm and left axilla. The symptoms are similar to those he had prior to coronary stent placement several years ago at [facility] although he did not believe the symptoms were related to his heart as he had a normal stress test done a couple of months ago. He also complains of pain in his left 2nd and 3rd toes and takes a may be broken; last Friday he stubbed them on the handle of a cooler and they have been painful and swollen. He has not had a documented fever but has felt feverish. He denies sinus congestion, sore throat, cough, syncope, near syncope, pleuritic pain, shortness of breath, nausea, vomiting, diarrhea, and dysuria. At the time of my evaluation he is resting comfortably and has no complaints. In the ED: Vital signs on arrival include a temperature of 90.3?, blood pressure 173/86, pulse 105, SpO2 97% on room air. Labs were significant for WBC count of 15.1, hemoglobin 13.4, MCV 102.9, sodium 133, carbon dioxide 20, creatinine 0.54, lactic acid 2.5, total bilirubin 0.7, AST 216, ALT 119, alkaline phosphatase 48, troponin 16.300, proBNP 694. Chest and foot x-rays were unremarkable. EKG showed sinus rhythm showed minimal depression in V2. ED provider spoke with the on-call seed and fertilizer specialist and the patient was started on a heparin drip and will be NPO for probable cardiac catheterization later today. 02/04: Nursing called around 0815 this AM to alert me that pt was having increase jaw pain (bilateral) and that his 6 hour trop was climbing and now at 24. Stat EKG yielded NSR. Sublingual nitro to be given, per nursing, it took his 6/10 pain down to 4/[address]ached out to Dr. Gill (interventional cards) and left a message. I was able to speak to to Dr. Persaud (cards) to make him aware of the pt and the current scenario, he states that he will take a look at him. Update from nursing, after third nitro, pt reporting a 3/10 pain. Update from nursing, Dr. Persaud to not see the pt due to the seed and fertilizer specialist group already being consulted. EVELIN Hernandez made contact with bedside RN, Natasha, and states that either her or Dr. Gill will come see the pt. 09 Dr. Gill called me back and updated me that he saw the pt after Nitro and pt is more comfortable. He also does report that he is still going to take the pt to the laborer wrecking and salvaging, around 1100. Updated nursing on the plan. Pt underwent cardiac cath today with stent placement. Due to Brilinta expense, pt will be loaded on Plavix this evening and started tomorrow on daily 75mg Plavix. Review of Systems Review of Systems: 12 systems were reviewed and are negativ e except for as per HPI. Exam Const: General: comfortable and uncomfortable (jaw pain 6/10) HENMT: Face/Nose/Sinus: Normal nares present Mouth: Yes moist mucous membranes Eyes: General: appearance normal, both eyes and all related structures Sclera: sclerae normal Pupils: Equal, round and reactive pupils present EOM: EOMs intact bilaterally Neck: Neck: supple Other: Exam limited due to neck circumference. Resp: Effort & Inspection: normal respiratory effort Auscultation: clear to auscultation bilaterally Cardio: Rate: regular rate Rhythm: regular rhythm GI: Inspection: non-distended Auscultation: normal bowel sounds Skin: General skin exam: normal color and no rashes or lesions noted Neuro: Speech: normal speech Motor exam (neuro): Normal motor muscle tone present throughout Sensory Exam: normal sensation Extrem: Other: Left 2nd and 3rd toes are mildly edematous with healing bruises. No gross deformities. Psych: Mental Status: mental status grossly normal Affect: normal affect Objective Data Vital Signs Vital Signs: Vital Signs - 24 hr 02/03/25 21:46 02/03/25 23:02 02/04/25 01:56 Temperature 98.3 F Pulse Rate 105 H 90 79 Respiratory Rate 20 18 19 Blood Pressure 173/86 H 130/64 117/65 Pulse Oximetry 97 97 96 Oxygen Delivery Room Air 02/04/25 02:18 02/04/25 02:49 02/04/25 04:00 Temperature 98.2 F 97.9 F Pulse Rate 81 88 82 Respiratory Rate 18 16 18 Blood Pressure 118/63 135/66 131/69 Pulse Oximetry 97 97 100 Oxygen Delivery 02/04/25 04:00 02/04/25 04:00 02/04/25 06:00 Temperature Pulse Rate 81 82 88 Respiratory Rate 18 Blood Pressure Pulse Oximetry 100 Oxygen Delivery Room Air Intake/Output Intake/Output: Intake & Output 02/01/25 02/02/25 02/03/25 02/04/25 23:59 23:59 23:59 23:59 Intake Total 1000 Output Total 500 Balance 500 Meds/Results Medications: Active Medications Generic Name Dose Route Start Last Admin Trade Name Freq PRN Reason Stop Dose Admin Aspirin 81 mg 02/04/25 08:00 Aspirin 81 Mg Chewable Tablet PO DAILY@0800 [facility] Atorvastatin Calcium 80 mg 02/04/25 21:00 Atorvastatin 40 Mg Tablet PO QHS [facility] Heparin Sodium (Porcine) 4,000 units 02/04/25 00:26 Heparin Sodium 5,000 Units/Ml Vial IV PUSH PRN PRN aPTT less than 55 seconds Heparin Sodium (Porcine) 3,500 units 02/04/25 00:26 Heparin Sodium 5,000 Units/Ml Vial IV PUSH PRN PRN aPTT 55 - 70 seconds Heparin Sodium/Dextrose 25,000 units in 250 mls @ 10 mls/hr 02/04/25 00:30 02/04/25 01:03 Heparin Sodium/D5w 100 Units/Ml IV CONT 1,000 units/hr .Q24H [facility] 10 mls/hr Administration Protocol 1,000 UNITS/HR Metoprolol Tartrate 50 mg 02/04/25 09:00 Metoprolol Tartrate 50 Mg Tab PO DAILY [facility] Phenytoin Sodium 100 mg 02/04/25 09:00 Phenytoin Sodium 100 Mg Extended Release Cap PO TID [facility] Primidone 500 mg 02/04/25 09:00 Primidone 250 Mg Tablet PO BID [facility] Vitamin D 25 mcg 02/04/25 09:00 Cholecalciferol (Vitamin D3) 25 Mcg (1,000 Units) Tablet PO DAILY [facility] Radiology Results: ITS Impressions Chest X-Ray 02/03/25 23:18 IMPRESSION: No acute cardiopulmonary pathology. Foot X-Ray 02/03/25 23:19 IMPRESSION: No acute osseous abnormality left foot. Labs Labs: Laboratory Results - last 24 hr 02/03/25 02/04/25 02/04/25 23:03 01:01 02:03 WBC 15.1 H RBC 3.85 L Hgb 13.4 L Hct 39.6 L MCV 102.9 H MCH 34.8 H MCHC 33.8 RDW 13.4 Plt Count 304 MPV 10.3 Immature Gran % (Auto) 0.4 Neut % (Auto) 80.4 H Lymph % (Auto) 4.8 L [place] % (Auto) 13.6 H Eos % (Auto) 0.3 Baso % (Auto) 0.5 Lymph # (Auto) 0.73 L [place] # (Auto) 2.1 H Eos # (Auto) 0.1 Baso # (Auto) 0.1 Abs Immat Gran (auto) 0.06 H Absolute Neuts (auto) 12.1 H Absolute Nucleated RBC 0.000 Band Neutrophils % 0 Nucleated RBC % 0.0 Platelet Estimate Adequate Schistocytes None seen PT 14.5 INR 1.1 APTT 26.4 Sodium 133 L Potassium 3.8 Chloride 102 Carbon Dioxide 20 L Anion Gap 11 BUN 10 Creatinine 0.54 L Estim Creat Clear Calc 120 Estimated GFR > 60 Glucose 119 H Lactic Acid 2.5 H 0.9 Calcium 8.3 L Total Bilirubin 0.7 AST 216 H ALT 119 H Alkaline Phosphatase 248 H Troponin I 16.300 H* 19.600 H* D NT-Pro-B Natriuret Pep 694 H Total Protein 8.6 H Albumin 4.2 Phenytoin Ethyl Alcohol < 10 Influenza A (RT-PCR) Negative Influenza B (RT-PCR) Negative RSV (RT-PCR) Negative SARS-CoV-2 RNA (RT-PCR) Negative 02/04/25 06:45 WBC 12.4 H RBC 3.53 L Hgb 12.2 L Hct 37.0 L MCV 104.8 H MCH 34.6 H MCHC 33.0 RDW 13.5 Plt Count 232 MPV 9.5 Immature Gran % (Auto) Neut % (Auto) Lymph % (Auto) [place] % (Auto) Eos % (Auto) Baso % (Auto) Lymph # (Auto) [place] # (Auto) Eos # (Auto) Baso # (Auto) Abs Immat Gran (auto) Absolute Neuts (auto) Absolute Nucleated RBC Band Neutrophils % Nucleated RBC % Platelet Estimate Schistocytes PT 14.5 INR 1.1 APTT 38.2 H Sodium Potassium Chloride Carbon Dioxide Anion Gap BUN Creatinine Estim Creat Clear Calc Estimated GFR Glucose Lactic Acid Calcium Total Bilirubin AST ALT Alkaline Phosphatase Troponin I NT-Pro-B Natriuret Pep Total Protein Albumin Phenytoin 4 L Ethyl Alcohol Influenza A (RT-PCR) Influenza B (RT-PCR) RSV (RT-PCR) SARS-CoV-2 RNA (RT-PCR) Quality VTE Prophylaxis VTE prophylaxis: pharmacologic ordered (heparin subQ TID)
[2025-02-04 07:46] LABS: Iron 53 ug/dL (49-181)
[2025-02-04 07:56] LABS: Percent Iron Saturation 21 % (20-50)
--- NOTE | 2025-02-04 08:06 | ECG_ITS ---
Test Date: 2025-02-04 08:13:34 Measurements Intervals [place] Rate: 88 P: 45 CT: 168 QRS: 52 QRSD: 92 T: 84 QT: 354 QTc: 429 Interpretive Statements SINUS RHYTHM INCOMPLETE RIGHT BUNDLE BRANCH BLOCK BORDERLINE ST-T WAVE ABNORMALITY- HIGH LATERAL LEADS BASELINE ARTIFACT- I, AVR, AVL BORDERLINE ECG Compared to ECG 02/04/2025 02:07:30 NO SIGNIFICANT CHANGE Electronically Signed On 02-04-2025 08:28:16 CDT by Brayden Persaud D.O.
[2025-02-04] MEDS: HEPARIN SODIUM 5,000 UNITS/ML VIAL 4000 UNITS IV PUSH (08:09)
[2025-02-04] MEDS: ASPIRIN 81 MG CHEWABLE TABLET PO (08:10)
[2025-02-04] MEDS: CHOLECALCIFEROL (VITAMIN D3) 25 MCG (1,000 UNITS) TABLET PO (08:19)
[2025-02-04] MEDS: PRIMIDONE 250 MG TABLET 500 MG PO ×2 (08:20→18:16)
[2025-02-04] MEDS: PHENYTOIN SODIUM 100 MG EXTENDED RELEASE CAP PO ×2 (08:20→18:16)
[2025-02-04] MEDS: METOPROLOL TARTRATE 50 MG TAB PO (08:20)
[2025-02-04 08:21] LABS: Alanine Aminotransferase 107 U/L (6-50); Albumin Level 3.6 g/dL (3.5-5.1); Alkaline Phosphatase 219 U/L (38-126); Anion Gap 6 mmol/L (4-12); Aspartate Amino Transferase 210 U/L (17-59); Bilirubin,Total 0.9 mg/dL (0.2-1.3); Blood Urea Nitrogen 7 mg/dL (9-20); Calcium 8.1 mg/dL (8.4-10.2); Carbon Dioxide 23 mmol/L (22-30); Chloride 106 mmol/L (98-107); Creatine Kinase 483 U/L (55-170); Estimated CRCL calculation 134 ml/min; Estimated Glomerular Filt Rate > 60; Glucose 116 mg/dL (65-110); Magnesium 1.6 mg/dL (1.6-2.3); Potassium 3.6 mmol/L (3.4-5.0); Sodium 135 mmol/L (137-145); Total Protein 7.6 g/dL (6.3-8.2)
[2025-02-04 08:22] LABS: Folic Acid 8.4 ng/mL (2.76->20)
--- NOTE | 2025-02-04 08:31 | PC.NURSE ---
Complains of 6/10 jaw pain over left and right side of jaw with associated left under arm pain. Placed on O2 2L, 81 mg aspirin given. Call placed to EVELIN Hernandez - unable to leave message. EVELIN Pruett made aware. STAT EKG ordered. SL nitro given x 3. Jaw pain rated 3/10, left sided stabbing CP rated 2/10. EVELIN Pruett updated.
--- NOTE | 2025-02-04 09:13 | ADMGEN ---
This patient, Gvain Tubbs, was admitted to IMU Room 232-01 on 02/04/25 at 0241. Patient/family oriented to hospital policies and general routines including ID bracelet, bed and alarms, visiting hours, pain management, procedures, bathroom and other care routines, personal items, smoking policy, room service/diet, and visiting hours. Information on how to activate the Rapid Response Team has been discussed. Patient/Family are encouraged to report perceived risks to care and to ask questions if they do not understand what they are told or what they should do.
[2025-02-04 09:29] LABS: Hepatitis B Surface Antigen Negative (Negative)
[2025-02-04 09:35] LABS: HAV RESULT Negative (Negative); Hepatitis B Core IgM Result Negative (Negative)
[2025-02-04 09:47] LABS: Hepatitis C Virus Antibody Negative (Negative)
--- NOTE | 2025-02-04 10:33 | PM.CNCAR ---
Assessment and Plan Assessment and plan (1) Non-ST elevated myocardial infarction (non-STEMI): Code(s): I21.4 - Non-ST elevation (NSTEMI) myocardial infarction Status: Acute (2) Coronary artery disease: Code(s): I25.10 - Atherosclerotic heart disease of [place] coronary artery without angina pectoris Status: Acute Plan 74-year-old man with coronary artery disease status post PCI and seizures presents with jaw pain Non ST-elevation CT -we have explained that this is likely late presentation occluded coronary vessel and if there are collaterals, then he will be treated with medication -the vessel is not occluded and is severely stenotic causing obstructive flow disease, the low proceed with PCI -we explained the cardiac catheterization with possible PCI along with the risks/benefits/alternatives to this -after patient expressed understanding, he decided to proceed for with the cardiac catheterization with possible PCI -continue heparin drip, aspirin, consolidate Lopressor to metoprolol succinate, and obtain a transthoracic echocardiogram Lower extremity pain -depending on contrast load, we will perform peripheral angiogram to ensure no flow-limiting obstruction -if we are unable to do this secondary to contrast limit, then we can proceed with ultrasound JOHNSON Hyperlipidemia -continue atorvastatin 80 mg every evening History of Present Illness History of Present Illness Consult date/time: 02/04/25 10:33 Requesting physician: Seble Juan APRN Consult reason: chest pain Reason For Visit: NSTEMI, elevated troponin Narrative: 74-year-old man with coronary artery disease status post PCI and seizures presents with jaw pain. The jaw pain radiated to the left arm and has been constant since Friday late afternoon. Since is jaw pain started he has been homebound and just ambulating within the confines of his home. Has not noted any worsening pain with ambulation within the confines of his home. Denies any orthopnea or shortness of breath. No recent bleeding. No syncopal events. No recent fever chills or upper respiratory viral illnesses. He does have bilateral toe pain. Review of Systems Cardiovascular: Cardiovascular: Reports as per HPI Respiratory: Respiratory: Reports as per HPI [facility] Past Medical History Medical History (Updated 02/04/25 @ 04:04 by Wanda Storm PA-C) Hyperlipidemia Coronary artery disease Seizure disorder Surgical History Surgical History (Updated 02/04/25 @ 04:02 by Wanda Storm PA-C) History of spinal surgery for fractures of T7 through T10 History of cardiac catheterization Family History Family History Father CAD (coronary artery disease) Father Hypertension Social History Social History (Updated 02/04/25 @ 04:03 by Wanda Storm PA-C) Social History: Surrogate medical decision maker: Prema Fowler, daughter ([phone]). Code status: Full code. Smoking status: Never smoker Alcohol intake: former Substance use: former Do You Feel Safe in your Home?: Yes Lack of Transportation: No Lack of Food: Never True Current Housing: I Have Housing Concerned About Future Housing: No Difficulty Paying Gas/Electric Bills: No Difficulty Paying for Meds: No Currently Unemployed: No Education: Trade/Vocational Certificate Difficulty w/ Childcare or Family Care: No Spiritual care concerns: No Meds Home Medications and Allergies Home Medications ?Medication ?Instructions ?Recorded ?Confirmed ?Type aspirin 81 mg chewable tablet 81 mg PO DAILY@0800 #30 tabs 01/08/25 02/04/25 Rx (Children's Aspirin) atorvastatin 80 mg tablet 80 mg PO QHS #30 tabs 01/08/25 02/04/25 Rx cholecalciferol (vitamin D3) 25 25 mcg PO DAILY #30 tabs 01/08/25 02/04/25 Rx mcg (1,000 unit) tablet (Vitamin D3) cyclobenzaprine 10 mg tablet 5 mg (1/2 x 10 mg) PO TID #60 tabs 01/08/25 02/04/25 Rx metoprolol tartrate 50 mg tablet 50 mg PO DAILY #60 tabs 01/08/25 02/04/25 Rx phenytoin sodium extended 100 mg 100 mg PO TID #90 caps 01/08/25 02/04/25 Rx capsule (Dilantin Extended) primidone 250 mg tablet 500 mg (2 x 250 mg) PO BID #60 tabs 01/08/25 02/04/25 Rx Allergies Allergy/AdvReac Type Severity Reaction Status Date / Time Penicillins Allergy Intermediate Swelling Verified 12/29/24 21:30 Vital Signs Vital Signs - 24 hr 02/03/25 21:46 02/03/25 23:02 02/04/25 01:56 Temperature 36.8 C Pulse Rate 105 H 90 79 Respiratory Rate 20 18 19 Blood Pressure 173/86 H 130/64 117/65 Pulse Oximetry 97 97 96 Oxygen Delivery Room Air 02/04/25 02:18 02/04/25 02:49 02/04/25 04:00 Temperature 36.8 C 36.6 C Pulse Rate 81 88 82 Respiratory Rate 18 16 18 Blood Pressure 118/63 135/66 131/69 Pulse Oximetry 97 97 100 Oxygen Delivery 02/04/25 04:00 02/04/25 04:00 02/04/25 06:00 Temperature Pulse Rate 81 82 88 Respiratory Rate 18 Blood Pressure Pulse Oximetry 100 Oxygen Delivery Room Air 02/04/25 08:00 02/04/25 08:20 Temperature 37.6 C Pulse Rate 89 92 Respiratory Rate 20 Blood Pressure 137/66 Pulse Oximetry 97 Oxygen Delivery Exam Const: General: comfortable HENMT: Mouth: Yes moist mucous membranes Eyes: EOM: EOMs intact bilaterally Neck: Neck: no JVD Resp: Effort & Inspection: normal respiratory effort Auscultation: clear to auscultation bilaterally Cardio: Rate: regular rate Rhythm: regular rhythm GI: GI Palp: Yes Soft to palpation Neuro: Speech: normal speech Extrem: General: no pedal edema Results Labs and Meds 02/04/25 06:45 02/04/25 06:45 Lab results: Cardiac Enzymes 02/03/25 02/04/25 02/04/25 Range/Units 23:03 02:03 06:45 AST 216 H 210 H (17-59) U/L Troponin I 16.300 H* 19.600 H* D 24.000 H* D (0.000-0.034) ng/mL Coagulation 02/04/25 02/04/25 Range/Units 01:01 06:45 PT 14.5 14.5 (11.1-14.7) Seconds APTT 26.4 38.2 H (22.3-36.8) Seconds CBC 02/03/25 02/04/25 Range/Units 23:03 06:45 WBC 15.1 H 12.4 H (4.5-10.0) K/mm3 RBC 3.85 L 3.53 L (4.6-6.20) M/mm3 Hgb 13.4 L 12.2 L (14.0-18.0) g/dL Hct 39.6 L 37.0 L (42.0-52.0) % Plt Count 304 232 (150-375) k/mm3 Lymph # (Auto) 0.73 L (0.9-3.2) K/mm3 [place] # (Auto) 2.1 H (0.1-0.6) K/mm3 Eos # (Auto) 0.1 (0-0.3) K/mm3 Baso # (Auto) 0.1 (0.0-0.1) K/mm3 Comprehensive Metabolic Panel 02/03/25 02/04/25 Range/Units 23:03 06:45 Sodium 133 L 135 L (137-145) mmol/L Potassium 3.8 3.6 (3.4-5.0) mmol/L Chloride 102 106 (98-107) mmol/L Carbon Dioxide 20 L 23 (22-30) mmol/L BUN 10 7 L (9-20) mg/dL Creatinine 0.54 L 0.47 L (0.7-1.3) mg/dL Glucose 119 H 116 H (65-110) mg/dL Calcium 8.3 L 8.1 L (8.4-10.2) mg/dL AST 216 H 210 H (17-59) U/L ALT 119 H 107 H (6-50) U/L Alkaline Phosphatase 248 H 219 H (38-126) U/L Total Protein 8.6 H 7.6 (6.3-8.2) g/dL Albumin 4.2 3.6 (3.5-5.1) g/dL Intake and Output 02/03/25 02/04/25 02/04/25 23:59 07:59 15:59 Intake Total 1000 71.2 Output Total 500 Balance 500 71.2 Intake: IV 1000 71.2 Heparin Sod/D5w 100 Units/ml 25 71.2 ,000 units In 250 ml @ 1,000 UNITS/HR 10 mls/hr IV CONT . Q24H JEMAL Rx#:[id number] Sodium Chloride 0.9% IV 1,000 1000 ml @ 999 mls/hr IV CONT .Q1H1M STA Rx#:[id number] Output: Urine 500 Patient Weight 02/04/25 23:59 Weight 101.6 kg
--- NOTE | 2025-02-04 10:41 | WPDHPUPDATE1 ---
History and Physical Update Update Date/Time: 02/04/25 09:41 History and Physical has been reviewed, including an updated exam of the patient. There are NO changes in the patient's condition. Risks, benefits, and alternatives have been discussed and questions answered. Patient agrees to proceed with procedure.
--- NOTE | 2025-02-04 10:41 | WPDMODSED ---
Moderate Sedation Note-Pt Data Patient Data Allergies Allergy/AdvReac Type Severity Reaction Status Date / Time Penicillins Allergy Intermediate Swelling Verified 12/29/24 21:30 Home Medications ?Medication ?Instructions ?Recorded ?Confirmed ?Type aspirin 81 mg chewable tablet 81 mg PO DAILY@0800 #30 tabs 01/08/25 02/04/25 Rx (Children's Aspirin) atorvastatin 80 mg tablet 80 mg PO QHS #30 tabs 01/08/25 02/04/25 Rx cholecalciferol (vitamin D3) 25 25 mcg PO DAILY #30 tabs 01/08/25 02/04/25 Rx mcg (1,000 unit) tablet (Vitamin D3) cyclobenzaprine 10 mg tablet 5 mg (1/2 x 10 mg) PO TID #60 tabs 01/08/25 02/04/25 Rx metoprolol tartrate 50 mg tablet 50 mg PO DAILY #60 tabs 01/08/25 02/04/25 Rx phenytoin sodium extended 100 mg 100 mg PO TID #90 caps 01/08/25 02/04/25 Rx capsule (Dilantin Extended) primidone 250 mg tablet 500 mg (2 x 250 mg) PO BID #60 tabs 01/08/25 02/04/25 Rx Current Medications: Active Medications Aspirin (Aspirin 81 Mg Chewable Tablet) 81 mg PO DAILY@0800 [facility] Last Admin: 02/04/25 08:10 Dose: 81 mg Atorvastatin Calcium (Atorvastatin 40 Mg Tablet) 80 mg PO QHS [facility] Heparin Sodium (Porcine) (Heparin Sodium 5,000 Units/Ml Vial) 4,000 units IV PUSH PRN PRN PRN Reason: aPTT less than 55 seconds Last Admin: 02/04/25 08:09 Dose: 4,000 units Heparin Sodium (Porcine) (Heparin Sodium 5,000 Units/Ml Vial) 3,500 units IV PUSH PRN PRN PRN Reason: aPTT 55 - 70 seconds Heparin Sodium/Dextrose (Heparin Sodium/D5w 100 Units/Ml) 25,000 units in 250 mls @ 13 mls/hr IV CONT .[id number] [facility]; Protocol Last Titration: 02/04/25 08:10 Dose: 1,300 units/hr, 13 mls/hr Metoprolol Succinate (Metoprolol Succinate Ext Rel 50 Mg Tabcr) 50 mg PO QAM [facility] Nitroglycerin (Nitroglycerin Sl 0.4 Mg Tablet) 0.4 mg SUBLINGUAL Q5MIN PRN PRN Reason: Chest Pain Last Admin: 02/04/25 08:25 Dose: 0.4 mg Perflutren Lipid Microsphere (Perflutren Lipid Microspheres 1.5 Ml Vial Diluted To 10 Ml Total Volume) 0 ml IV PUSH ONCE PRN; Protocol PRN Reason: adequate visualization Stop: 02/07/25 10:40 Phenytoin Sodium (Phenytoin Sodium 100 Mg Extended Release Cap) 100 mg PO TID [facility] Last Admin: 02/04/25 08:20 Dose: 100 mg Primidone (Primidone 250 Mg Tablet) 500 mg PO BID [facility] Last Admin: 02/04/25 08:20 Dose: 500 mg Vitamin D (Cholecalciferol (Vitamin D3) 25 Mcg (1,000 Units) Tablet) 25 mcg PO DAILY [facility] Last Admin: 02/04/25 08:19 Dose: 25 mcg Sedation/Anesthesia: No previous sedation/anesthesia problems (including family history). [facility] Past Medical History Medical History (Updated 02/04/25 @ 04:04 by Wanda Storm PA-C) Hyperlipidemia Coronary artery disease Seizure disorder Surgical History Surgical History (Updated 02/04/25 @ 04:02 by Wanda Storm PA-C) History of spinal surgery for fractures of T7 through T10 History of cardiac catheterization Family History Family History Father CAD (coronary artery disease) Father Hypertension Social History Social History (Updated 02/04/25 @ 04:03 by Wanda Storm PA-C) Social History: Surrogate medical decision maker: Prema Fowler, daughter ([phone]). Code status: Full code. Smoking status: Never smoker Alcohol intake: former Substance use: former Do You Feel Safe in your Home?: Yes Lack of Transportation: No Lack of Food: Never True Current Housing: I Have Housing Concerned About Future Housing: No Difficulty Paying Gas/Electric Bills: No Difficulty Paying for Meds: No Currently Unemployed: No Education: Trade/Vocational Certificate Difficulty w/ Childcare or Family Care: No Spiritual care concerns: No Mod Sed Physical Exam Physical Exam Pre Procedural Exam: Normal: Lungs and Heart Rate Hours since solid foods: 12 Hours since liquid intake: 12 Mallampati Classification: class II Internal Medicine - PN: Obj Da Vital Signs Vital Signs: Vital Signs - 24 hr 02/03/25 21:46 02/03/25 23:02 02/04/25 01:56 Temperature 36.8 C Pulse Rate 105 H 90 79 Respiratory Rate 20 18 19 Blood Pressure 173/86 H 130/64 117/65 Pulse Oximetry 97 97 96 Oxygen Delivery Room Air 02/04/25 02:18 02/04/25 02:49 02/04/25 04:00 Temperature 36.8 C 36.6 C Pulse Rate 81 88 82 Respiratory Rate 18 16 18 Blood Pressure 118/63 135/66 131/69 Pulse Oximetry 97 97 100 Oxygen Delivery 02/04/25 04:00 02/04/25 04:00 02/04/25 06:00 Temperature Pulse Rate 81 82 88 Respiratory Rate 18 Blood Pressure Pulse Oximetry 100 Oxygen Delivery Room Air 02/04/25 08:00 02/04/25 08:20 Temperature 37.6 C Pulse Rate 89 92 Respiratory Rate 20 Blood Pressure 137/66 Pulse Oximetry 97 Oxygen Delivery Intake/Output Intake/Output: Intake & Output 02/01/25 02/02/25 02/03/25 02/04/25 23:59 23:59 23:59 23:59 Intake Total 1071.2 Output Total 500 Balance 571.2 Meds/Results Medications: Active Medications Generic Name Dose Route Start Last Admin Trade Name Freq PRN Reason Stop Dose Admin Aspirin 81 mg 02/04/25 08:00 02/04/25 08:10 Aspirin 81 Mg Chewable Tablet PO 81 mg DAILY@0800 [facility] Administration Atorvastatin Calcium 80 mg 02/04/25 21:00 Atorvastatin 40 Mg Tablet PO QHS [facility] Heparin Sodium (Porcine) 4,000 units 02/04/25 00:26 02/04/25 08:09 Heparin Sodium 5,000 Units/Ml Vial IV PUSH 4,000 units PRN PRN Administration aPTT less than 55 seconds Heparin Sodium (Porcine) 3,500 units 02/04/25 00:26 Heparin Sodium 5,000 Units/Ml Vial IV PUSH PRN PRN aPTT 55 - 70 seconds Heparin Sodium/Dextrose 25,000 units in 250 mls @ 13 mls/hr 02/04/25 00:30 02/04/25 08:10 Heparin Sodium/D5w 100 Units/Ml IV CONT 1,300 units/hr .[id number] [facility] 13 mls/hr Titration Protocol 1,300 UNITS/HR Metoprolol Succinate 50 mg 02/05/25 09:00 Metoprolol Succinate Ext Rel 50 Mg Tabcr PO QAM [facility] Nitroglycerin 0.4 mg 02/04/25 08:11 02/04/25 08:25 Nitroglycerin Sl 0.4 Mg Tablet SUBLINGUAL 0.4 mg Q5MIN PRN Administration Chest Pain Perflutren Lipid Microsphere 0 ml 02/04/25 10:40 Perflutren Lipid Microspheres 1.5 Ml Vial Diluted To 10 Ml Total Volume IV PUSH 02/07/25 10:40 ONCE PRN adequate visualization Protocol Phenytoin Sodium 100 mg 02/04/25 09:00 02/04/25 08:20 Phenytoin Sodium 100 Mg Extended Release Cap PO 100 mg TID JEMAL Administration Primidone 500 mg 02/04/25 09:00 02/04/25 08:20 Primidone 250 Mg Tablet PO 500 mg BID JEMAL Administration Vitamin D 25 mcg 02/04/25 09:00 02/04/25 08:19 Cholecalciferol (Vitamin D3) 25 Mcg (1,000 Units) Tablet PO 25 mcg DAILY JEMAL Administration Radiology Results: ITS Impressions Chest X-Ray 02/03/25 23:18 IMPRESSION: No acute cardiopulmonary pathology. Foot X-Ray 02/03/25 23:19 IMPRESSION: No acute osseous abnormality left foot. Abdomen Ultrasound 02/04/25 09:03 IMPRESSION: 1: Cirrhosis of the liver. Labs 02/04/25 06:45 02/04/25 06:45 Labs: Laboratory Results - last 24 hr 02/03/25 02/04/25 02/04/25 23:03 01:01 02:03 WBC 15.1 H RBC 3.85 L Hgb 13.4 L Hct 39.6 L MCV 102.9 H MCH 34.8 H MCHC 33.8 RDW 13.4 Plt Count 304 MPV 10.3 Immature Gran % (Auto) 0.4 Neut % (Auto) 80.4 H Lymph % (Auto) 4.8 L [place] % (Auto) 13.6 H Eos % (Auto) 0.3 Baso % (Auto) 0.5 Lymph # (Auto) 0.73 L [place] # (Auto) 2.1 H Eos # (Auto) 0.1 Baso # (Auto) 0.1 Abs Immat Gran (auto) 0.06 H Absolute Neuts (auto) 12.1 H Absolute Nucleated RBC 0.000 Band Neutrophils % 0 Nucleated RBC % 0.0 Platelet Estimate Adequate Schistocytes None seen PT 14.5 INR 1.1 APTT 26.4 Sodium 133 L Potassium 3.8 Chloride 102 Carbon Dioxide 20 L Anion Gap 11 BUN 10 Creatinine 0.54 L Estim Creat Clear Calc 120 Estimated GFR > 60 Glucose 119 H Lactic Acid 2.5 H 0.9 Calcium 8.3 L Magnesium Iron TIBC % Saturation Ferritin Total Bilirubin 0.7 AST 216 H ALT 119 H Alkaline Phosphatase 248 H Total Creatine Kinase Troponin I 16.300 H* 19.600 H* D NT-Pro-B Natriuret Pep 694 H Total Protein 8.6 H Albumin 4.2 Vitamin B12 Folate TSH (Reflex) Phenytoin Ethyl Alcohol < 10 Hepatitis A IgM Ab Hep Bs Antigen Hep B Core IgM Ab Hepatitis C Ab Screen Influenza A (RT-PCR) Negative Influenza B (RT-PCR) Negative RSV (RT-PCR) Negative SARS-CoV-2 RNA (RT-PCR) Negative 02/04/25 06:45 WBC 12.4 H RBC 3.53 L Hgb 12.2 L Hct 37.0 L MCV 104.8 H MCH 34.6 H MCHC 33.0 RDW 13.5 Plt Count 232 MPV 9.5 Immature Gran % (Auto) Neut % (Auto) Lymph % (Auto) [place] % (Auto) Eos % (Auto) Baso % (Auto) Lymph # (Auto) [place] # (Auto) Eos # (Auto) Baso # (Auto) Abs Immat Gran (auto) Absolute Neuts (auto) Absolute Nucleated RBC Band Neutrophils % Nucleated RBC % Platelet Estimate Schistocytes PT 14.5 INR 1.1 APTT 38.2 H Sodium 135 L Potassium 3.6 Chloride 106 Carbon Dioxide 23 Anion Gap 6 BUN 7 L Creatinine 0.47 L Estim Creat Clear Calc 134 Estimated GFR > 60 Glucose 116 H Lactic Acid Calcium 8.1 L Magnesium 1.6 Iron 53 TIBC 254 L % Saturation 21 Ferritin 84.00 Total Bilirubin 0.9 AST 210 H ALT 107 H Alkaline Phosphatase 219 H Total Creatine Kinase 483 H Troponin I 24.000 H* D NT-Pro-B Natriuret Pep Total Protein 7.6 Albumin 3.6 Vitamin B12 315.0 Folate 8.4 TSH (Reflex) 1.540 Phenytoin 4 L Ethyl Alcohol Hepatitis A IgM Ab Negative Hep Bs Antigen Negative Hep B Core IgM Ab Negative Hepatitis C Ab Screen Negative Influenza A (RT-PCR) Influenza B (RT-PCR) RSV (RT-PCR) SARS-CoV-2 RNA (RT-PCR) ASA Classification/Sedation ASA Classification/Sedation ASA Class: III Emergent: No Risks: Risks, benefits and alternatives explained and patient/family accepted plan for sedation. Patient re-evaluated immediately prior to sedation.
--- NOTE | 2025-02-04 11:14 | PC.NURSE ---
To clinical laboratory technician via bed.
[2025-02-04 13:00] LABS: Activated Clotting Time 239 SEC (74-137)
--- NOTE | 2025-02-04 13:28 | P.PCNCC_ITS ---
Cardiac Cath Procedure Note Date of procedure:: 02/04/25 Performing physician:: CATHETERIZATION LABORATORY REPORT Procedure Date: 02/04/2025 Referring Physician: Ava Juan NP Anesthesia: Versed and Fentanyl were ordered and given in my presence at 1147, procedure ended at 1241. Supervision of nurse, Dunia Wood monitored moderate sedation with 2mg Versed and 100mcg Fentanyl was provided for 54 minutes. Pre-op Diagnosis: NSTEMI Post-op Diagnosis: NSTEMI Procedure(s): Left heart catheterization with coronary angiography Percutaneous coronary intervention Coronary aspiration thrombectomy Peripheral angiogram Moderate sedation Access Site: Right radial artery Brief History and Clinical Indications: 74-year-old man with coronary artery disease status post PCI and seizures presents with jaw pain All risks, benefits and alternatives to left heart catheterization with or without percutaneous coronary intervention was discussed at length with the patient. Risk of complications including but not limited to bleeding, infection, arrhythmia, stroke, worsening kidney function, blood loss, groin hematoma, limb loss, emergency coronary artery bypass grafting, and even were discussed with the patient and all questions were answered. The patient understood and wished to proceed. Time out called, patient name, date of , medical record number, allergies, procedure performed, identify [place]ow Worker, patient and staff member concurred with accurate data, procedure carried on. Findings: LEFT HEART CATHETERIZATION FINDINGS: 1. Left main: The left main coronary artery is widely patent without any significant obstructive disease. 2. Left anterior descending: The LAD provides 1 significant diagonal. The LAD in its proximal to mid body has a patent stent with 10% in-stent restenosis. The remainder of the LAD and its branches have luminal irregularities. 3. Left circumflex: The left circumflex artery is occluded in its proximal body. There are no collaterals to this territory. 4. Right coronary artery: The RCA has mild luminal irregularities without any significant obstructive angiographic disease. The RCA is the dominant vessel. 5. Left ventricle: A. End-diastolic pressure 26 mmHg. B. LV gram deferred. C. No significant gradient across aortic valve on catheter pullback. 6. Opening AO pressure 105/64 and closing AO pressure 108/57 Description of Procedure: Informed consent signed and placed in the chart. Patient transferred to director of labor relations room. Prepped and draped in usual sterile fashion. 2% lidocaine injected subcutaneously in right wrist area. 22-gauge venipuncture catheter used to access the right radial artery with the Seldinger technique. 6-FR slender sheath placed in right radial artery. Nitroglycerin 200mcg, Verapamil 2.5mg, and Heparin 5000U was given intraarterial through the sheath. J wire advanced under fluoroscopy 5F Ultra diagnostic catheter engaged Left Main Coronary Artery. 5F Ultra diagnostic catheter engaged Right Coronary Artery Multiple orthogonal angiogram obtained and reviewed 5F Ultra diagnostic catheter crossed aortic valve to obtain LVEDP, LV angiogram deferred. After review of the images in its entirety, given the patient's persistent chest discomfort and lack of collaterals, decision was made to proceed with PCI. Procedure Description for PCI: Heparin was used for anticoagulation (ACT maintained above 250) Patient loaded with heparin at 70 units/kg. 6F EBU 3.5 guide catheter was used to intubate the LMCA. 0.014 Runthroughcoronary wire was passed in to the distal left circumflex. The lesion was pre-dilated with a 2.5 x 20mm balloon inflated to nominal pressures. The lesion use it and there was distal embolized thrombus noted on angiogram following the angioplasty. At this time, the decision was made to perform thrombectomy with the [employer] CAT Rx coronary device. We performed 1 pass into the distal left circumflex and pullback on aspiration. Repeat angiography demonstrated resolution of the distal thrombus. We then gave intracoronary nicardipine to reduce the risk of no reflow phenomenon. Following is, we deployed a 3.0 x 26mm [place] SUJIT; postdilated with a 3.5 x 20mm NC to maximum pressures with excellent angiographic results. Intracoronary NTG was administered and intracoronary equipment was removed under fluoroscopy. Follow-up angiograms showed an excellent result. Pre-procedure - SHANA 0 flow Post-procedure - SHANA 3 flow No angiographic complications identified. Assessment: Successful aspiration thrombectomy and PCI to the proximal left circumflex with a 3.0 x 26mm [place] SUJIT; post dilated with a 3.5 x 20mm NC with excellent angiographic results. Post Operative Condition: Stable No significant blood loss Disposition: Home Plan: Aspirin 81 mg p.o. daily indefinitely. I have sent Brilinta 90 mg p.o. b.i.d. to [facility] for meds to bed Services. Please notify Cardiology if patient is unable to afford Brilinta, as we will transition him to Plavix in that case. Continue aggressive risk factor modification and optimal medical therapy. Patient follow-up with me in clinic. Ch[facility] Interventional Cardiology
[2025-02-04] MEDS: PERFLUTREN LIPID MICROSPHERES 1.5 ML VIAL DILUTED TO 10 ML TOTAL VOLUME IV PUSH (15:00)
--- NOTE | 2025-02-04 15:04 | PM.EVENT ---
Event Note Event Note Event Note: Was notified and Brilinta will constipation 400 dollars every month. Given that this is cost prohibitive to the patient, we will stop Brilinta. We will load with Plavix 600 mg this evening at 8:00 p.m.. We will continue Plavix at 75 mg p.o. daily starting tomorrow morning. The Plavix has been sent to [place] [facility] for meds to bed Services.
--- NOTE | 2025-02-04 15:29 | IVDEFINITY ---
Prior to administration of IV Definity the patient was educated on the risks and benefits of the imaging enhancing agent including potential adverse side effects. The patient verbalized understanding. Allergies were verified. No exclusion criteria were identified and at least one of the following inclusion criteria were met: 1) physician request, 2) patient technically difficult to image (per the [place] [employer] guidelines of two or more segments not discernable within the apical view), or 3) questionable left ventricular function. ?
[2025-02-04] MEDS: SODIUM CHLORIDE 0.9% IV 1,000 ML 125 ML IV CONT (15:30)
--- NOTE | 2025-02-04 16:29 | ECG_ITS ---
Test Date: 2025-02-04 16:30:51 Measurements Intervals [place] Rate: 122 P: 0 [place]: 0 QRS: 62 QRSD: 85 T: 64 QT: 298 QTc: 425 Interpretive Statements SINUS RHYTHM WITH EPISODE OF ATRIAL TACHYCARDIA, ATRIAL TRIPLET AND FREQUENT ATRIAL COUPLETS NONSPECIFIC ST & T-WAVE ABNORMALITY- ANTEROLATERAL LEADS BASELINE ARTIFACT- I, II, AVL, V1 ABNORMAL ECG Compared to ECG 02/04/2025 08:13:34 ATRIAL TACHYCARDIA, ATRIAL TRIPLET AND FREQUENT ATRIAL COUPLETS NOW PRESENT Electronically Signed On 02-04-2025 16:53:26 CDT by Brayden Persaud D.O.
[2025-02-04 17:42] LABS: Basophils Absolute Auto 0.1 K/mm3 (0.0-0.1); Basophils Percent Auto 0.3 % (0.2-1.2); Hematocrit 40.2 % (42.0-52.0); Hemoglobin 13.4 g/dL (14.0-18.0); Immature Granulocyte Absolute 0.09 K/mm3 (0.00-0.031); Immature Granulocyte Percent A 0.5 % (0-0.5); Lymphocytes Absolute Auto 0.95 K/mm3 (0.9-3.2); Mean Corpuscular HGB Conc 33.3 g/dl (32-36); Mean Corpuscular Hemoglobin 34.8 pg (26-34); Mean Corpuscular Volume 104.4 fl (80-100); Mean Platelet Volume 9.7 fl (7.4-10.4); Monocytes Absolute Auto 2.8 K/mm3 (0.1-0.6); Monocytes Percent Auto 14.8 % (2.6-8.5); Neutrophils Absolute Auto 15.2 K/mm3 (1.3-6.7); Neutrophils Percent Auto 79.4 % (45.5-73.1); Platelet Count Result 239 k/mm3 (150-375); Red Blood Count 3.85 M/mm3 (4.6-6.20); Red Cell Distribution Width 13.7 % (11.5-14.5); White Blood Count 19.2 K/mm3 (4.5-10.0)
[2025-02-04 17:58] LABS: Partial Thromboplastin Time 37.4 Seconds (22.3-36.8)
[2025-02-04] MEDS: METOPROLOL TARTRATE INJ 5 MG/5 ML VIAL IV PUSH (18:16)
[2025-02-04] MEDS: HEPARIN SODIUM 5,000 UNITS/ML VIAL 5000 UNITS SUB-Q ×2 (18:16→23:02)
[2025-02-04 18:17] LABS: INR 1.2
[2025-02-04 18:25] LABS: Band Neutrophils Percent 3 % (0-6); Platelet Clumps Present; Platelet Estimate Adequate (Adequate); Schistocytes None Seen
[2025-02-04] MEDS: ATORVASTATIN 40 MG TABLET 80 MG PO (20:02)
[2025-02-04] MEDS: CLOPIDOGREL BISULFATE 300 MG TABLET 600 MG PO (20:02)
[2025-02-05] VITALS (11 sets, daily range): BP systolic 120–129; BP diastolic 51–70; PULSE 64–107; RESP 16–18; TEMP 36.6–36.9; O2SAT 96–97
[2025-02-05] MEDS: METOPROLOL TARTRATE 25 MG TABLET PO (00:06)
[2025-02-05 05:21] LABS: Basophils Percent Auto 0.3 % (0.2-1.2); Eosinophils Absolute Auto 0.1 K/mm3 (0-0.3); Eosinophils Percent Auto 0.4 % (0-4.4); Hematocrit 33.9 % (42.0-52.0); Hemoglobin 11.4 g/dL (14.0-18.0); Immature Granulocyte Absolute 0.05 K/mm3 (0.00-0.031); Immature Granulocyte Percent A 0.4 % (0-0.5); Mean Corpuscular HGB Conc 33.6 g/dl (32-36); Mean Platelet Volume 9.5 fl (7.4-10.4); Monocytes Absolute Auto 2.4 K/mm3 (0.1-0.6); Neutrophils Absolute Auto 10.1 K/mm3 (1.3-6.7); Neutrophils Percent Auto 71.9 % (45.5-73.1); Platelet Count Result 216 k/mm3 (150-375); Red Blood Count 3.26 M/mm3 (4.6-6.20); Red Cell Distribution Width 13.7 % (11.5-14.5)
--- NOTE | 2025-02-05 05:23 | ECG_ITS ---
Test Date: 2025-02-05 05:28:57 Measurements Intervals [place] Rate: 84 P: 50 [place]: 166 QRS: 59 QRSD: 91 T: 72 QT: 353 QTc: 418 Interpretive Statements SINUS RHYTHM EARLY PRECORDIAL R/S TRANSITION MINIMAL Q WAVES- ANTERIOR LEADS BASELINE ARTIFACT- I, III, AVR, AVL BORDERLINE ECG Compared to ECG 02/04/2025 16:30:51 ATRIAL TACHYCARDIA, ATRIAL TRIPLET AND FREQUENT ATRIAL COUPLETS NO LONGER PRESENT Electronically Signed On 02-05-2025 07:15:58 CDT by Brayden Persaud D.O.
[2025-02-05 05:44] LABS: Alanine Aminotransferase 87 U/L (6-50); Albumin Level 3.4 g/dL (3.5-5.1); Alkaline Phosphatase 177 U/L (38-126); Anion Gap 7 mmol/L (4-12); Aspartate Amino Transferase 157 U/L (17-59); Bilirubin,Total 1.1 mg/dL (0.2-1.3); Blood Urea Nitrogen 10 mg/dL (9-20); Calcium 7.9 mg/dL (8.4-10.2); Carbon Dioxide 21 mmol/L (22-30); Chloride 105 mmol/L (98-107); Estimated CRCL calculation 111 ml/min; Estimated Glomerular Filt Rate > 60; Glucose 109 mg/dL (65-110); Potassium 3.4 mmol/L (3.4-5.0); Sodium 133 mmol/L (137-145); Total Protein 7.2 g/dL (6.3-8.2)
[2025-02-05 05:45] LABS: Phenytoin Dilantin 4 ug/mL (10-20)
[2025-02-05 06:08] LABS: Hepatitis B Surface Antigen Negative (Negative)
[2025-02-05 06:14] LABS: HAV RESULT Negative (Negative); Hepatitis B Core IgM Result Negative (Negative)
[2025-02-05 06:25] LABS: Hepatitis C Virus Antibody Negative (Negative)
--- NOTE | 2025-02-05 07:44 | PM.DS ---
DS: Admitting Diagnosis Discharge Date 02/05/2025 Admitting Diagnosis NSTEMI DS: Discharge Diagnosis Discharge Diagnosis (1) Non-ST elevated myocardial infarction (non-STEMI): Code(s): I21.4 - Non-ST elevation (NSTEMI) myocardial infarction Status: Acute Assessment and Plan: Pt to the ED on 02/03 for pain in his jaw that radiates to the LUE and left axilla x 2 days ago after swimming leisurely. -EKG showed perhaps very minimal ST depressions in V2 although his troponin was significantly elevated 16.300. -Given his cardiac history, he has been started on a heparin drip and will be NPO in anticipation of cardiac catheterization later 02/04 per on-call cards 02/04: Pt underwent cardiac cath today with stent placement. Due to Brilinta expense, pt will be loaded on Plavix this evening and started tomorrow on daily 75mg Plavix. Dr. Gill ordered Plavix from [facility] meds to beds. To be observed overnight and D/C tomorrow. 02/05: Pt denies pain today and is feeling better after his cath with stent placement. Pt to be sent home on Plavix and sublingual Nitro and f/u with Dr. Gill outpatient. Pt to be seen by cards today and then D/C pending their approval Per cards rounds today: Had an episode of atrial fibrillation yesterday and has frequent supraventricular ectopy at this point which does increase his risk of going into atrial fibrillation. Outpatient oil heat technician will be ordered he should have that put on Friday. Will not anticoagulate at least at this point to decrease bleeding risk in case the atrial fibrillation is simply transient from his myocardial infarction. Continue metoprolol succinate and anti-platelet regimen (2) Transaminitis: Code(s): R74.01 - Elevation of levels of liver transaminase levels Status: Acute Assessment and Plan: LFTs appear to be chronically elevated although are higher today than usual, AST > ALT, likely due to [place]. -Continue to monitor for now -RUQ US yielding cirrhosis of the liver, ordered repeat labs for the AM including hep panel 02/05: Hep panel negative, LFTs decreasing to more of his baseline. Updated pt on RUQ US results today of cirrhosis, pt states this is the first he has heard of this dx, pt does not have a patternmaker plaster nor seen a PCP in x3 years. Pt agreeable with establishing with new PCP and having them trend labs, imaging, sx, and refer to GI and/or patternmaker plaster. Pt agreeable with the plan. No jaundice or ascites noted. (3) Macrocytic anemia: Code(s): D53.9 - Nutritional anemia, unspecified Status: Acute Assessment and Plan: Appears to be chronic -Obtained B12 (WDL), folate (WDL), and iron studies (unremarkable) as no record of these on file here -Can f/u with PCP upon discharge (4) Coronary artery disease: Code(s): I25.10 - Atherosclerotic heart disease of [place] coronary artery without angina pectoris Status: Acute Assessment and Plan: See above and below. (5) Hyperlipidemia: Code(s): E78.5 - Hyperlipidemia, unspecified Status: Acute Assessment and Plan: Continue Atorvastatin (6) Seizure disorder: Code(s): G40.909 - Epilepsy, unspecified, not intractable, without status epilepticus Status: Acute Assessment and Plan: Continue phenytoin and repeat level in a.m. -Level low 02/04 AM, continue to check level -Pt reports that he has not missed any doses but daughter endorses that he sees a neurologist at [place] and they have been titrating his Dilantin recently. Plan to f/u neuro as outpt, no seizure sx. -->Pt missed x1 dose today d/t cardiac cath 02/05: Continues to not show any seizure like activity or neurologic abnormalities. Dilantin level today continues to be low at 4, same as yesterday. Pt missed x1 dose yesterday. Will have him f/u with his [facility] Neurologist Dr. Hernandez for dosing and follow-up, daughter at the bedside today and reports that he has an appt with neurology next week. Will continue to take his Dilantin 100mg TID. Plan D/C today with Plavix and Nitro and outpatient oil heat technician per cards. F/u with Dr. Gill, new PCP/GI, and established neurologist. DS: Summary Hospital Course Reason for hospitalization: NSTEMI Hospital Course: Per intake hospitalist: This is a 74-year-old male with history of coronary artery disease and stents, hyperlipidemia, seizure disorder, anxiety, and history of fall who presented to the emergency department for evaluation of jaw, arm, and toe pain. Two days ago he went swimming, leisurely and not for exercise, and after he got of the pool he noticed some discomfort in his jaw. Over the course of the last 2 days he has continued to have intermittent discomfort in the jaw which is now radiating into the left arm and left axilla. The symptoms are similar to those he had prior to coronary stent placement several years ago at [facility] although he did not believe the symptoms were related to his heart as he had a normal stress test done a couple of months ago. He also complains of pain in his left 2nd and 3rd toes and takes a may be broken; last Friday he stubbed them on the handle of a cooler and they have been painful and swollen. He has not had a documented fever but has felt feverish. He denies sinus congestion, sore throat, cough, syncope, near syncope, pleuritic pain, shortness of breath, nausea, vomiting, diarrhea, and dysuria. At the time of my evaluation he is resting comfortably and has no complaints. In the ED: Vital signs on arrival include a temperature of 90.3?, blood pressure 173/86, pulse 105, SpO2 97% on room air. Labs were significant for WBC count of 15.1, hemoglobin 13.4, MCV 102.9, sodium 133, carbon dioxide 20, creatinine 0.54, lactic acid 2.5, total bilirubin 0.7, AST 216, ALT 119, alkaline phosphatase 48, troponin 16.300, proBNP 694. Chest and foot x-rays were unremarkable. EKG showed sinus rhythm showed minimal depression in V2. ED provider spoke with the on-call director of sales support and the patient was started on a heparin drip and will be NPO for probable cardiac catheterization later today. 02/04: Nursing called around 0815 this AM to alert me that pt was having increase jaw pain (bilateral) and that his 6 hour trop was climbing and now at 24. Stat EKG yielded NSR. Sublingual nitro to be given, per nursing, it took his 6/10 pain down to 4/[address] out to Dr. Gill (interventional cards) and left a message. I was able to speak to to Dr. Persaud (cards) to make him aware of the pt and the current scenario, he states that he will take a look at him. Update from nursing, after third nitro, pt reporting a 3/10 pain. Update from nursing, Dr. Persaud to not see the pt due to the director of sales support group already being consulted. EVELIN Hernandez made contact with bedside RN, Natasha, and states that either her or Dr. Gill will come see the pt. 924 Dr. Gill called me back and updated me that he saw the pt after Nitro and pt is more comfortable. He also does report that he is still going to take the pt to the paint laboratory technician, around 1100. Updated nursing on the plan. Pt underwent cardiac cath today with stent placement. Due to Brilinta expense, pt will be loaded on Plavix this evening and started tomorrow on daily 75mg Plavix. 02/05: Pt feeling much better today, denies any chest, jaw, or LUE pain. [place] per cards to D/C today. Pt aware of the plan to f/u with Dr. Gill and for his continued Plavix 75mg daily. Pt to also keep neuro appt for next week regarding his Dilantin levels and hx of epilepsy. Pt also to establish with new PCP JAYDEN for continued care and for GI/hepatology workup and/or referral due to cirrhosis dx via US at this visit. Pt agreeable with plan for medical management and follow-up. Status at Discharge Cognitive/behavioral status at discharge: stable Functional status at discharge: independent ambulation Overall status at discharge: patient is progressing back to baseline Time Spent with Patient Time attestation: Total time spent providing and/or coordinating discharge services: Exam Narrative: Pt daughter at bedside Const: General: comfortable and no acute distress HENMT: Face/Nose/Sinus: Normal nares present Mouth: Yes moist mucous membranes Eyes: General: appearance normal, both eyes and all related structures Sclera: sclerae normal Other: No jaundice Neck: Neck: supple and no JVD Resp: Effort & Inspection: normal respiratory effort Auscultation: clear to auscultation bilaterally Cardio: Rate: regular rate Rhythm: regular rhythm GI: Auscultation: normal bowel sounds Other: Abd protuberant but no ascites Skin: General skin exam: normal color Wounds: no wounds Neuro: Speech: normal speech Motor exam (neuro): Normal motor muscle tone present throughout Sensory Exam: normal sensation Extrem: Other: Left 2nd and 3rd toes are mildly edematous with healing bruises. No gross deformities. Psych: Mental Status: mental status grossly normal Affect: normal affect DS: Data Data Completed and Pending Labs on day of discharge: Labs from last 24 hours 02/05/25 02/04/25 02/04/25 05:14 17:34 12:47 WBC 14.0 H 19.2 H RBC 3.26 L 3.85 L Hgb 11.4 L 13.4 L Hct 33.9 L 40.2 L MCV 104.0 H 104.4 H MCH 35.0 H 34.8 H MCHC 33.6 33.3 RDW 13.7 13.7 Plt Count 216 239 MPV 9.5 9.7 Immature Gran % (Auto) 0.4 0.5 Neut % (Auto) 71.9 79.4 H Lymph % (Auto) 10.0 L 5.0 L Fisher % (Auto) 17.0 H 14.8 H Eos % (Auto) 0.4 0.0 Baso % (Auto) 0.3 0.3 Lymph # (Auto) 1.40 0.95 Fisher # (Auto) 2.4 H 2.8 H Eos # (Auto) 0.1 0.0 Baso # (Auto) 0.0 0.1 Abs Immat Gran (auto) 0.05 H 0.09 H Absolute Neuts (auto) 10.1 H 15.2 H Absolute Nucleated RBC 0.000 0.000 Band Neutrophils % 3 Nucleated RBC % 0.0 0.0 Platelet Estimate Adequate Clumped Platelets Present Schistocytes None seen PT 15.0 H INR 1.2 APTT 37.4 H Activ Coag Time Kaolin 239 H Sodium 133 L Potassium 3.4 Chloride 105 Carbon Dioxide 21 L Anion Gap 7 BUN 10 Creatinine 0.59 L Estim Creat Clear Calc 111 Estimated GFR > 60 Glucose 109 Calcium 7.9 L Magnesium Iron TIBC % Saturation Ferritin Total Bilirubin 1.1 AST 157 H ALT 87 H Alkaline Phosphatase 177 H Total Creatine Kinase Total Protein 7.2 Albumin 3.4 L Vitamin B12 Folate TSH (Reflex) Phenytoin 4 L Hepatitis A IgM Ab Negative Hep Bs Antigen Negative Hep B Core IgM Ab Negative Hepatitis C Ab Screen Negative 02/04/25 02/04/25 12:41 06:45 WBC RBC Hgb Hct MCV MCH MCHC RDW Plt Count MPV Immature Gran % (Auto) Neut % (Auto) Lymph % (Auto) Fisher % (Auto) Eos % (Auto) Baso % (Auto) Lymph # (Auto) Fisher # (Auto) Eos # (Auto) Baso # (Auto) Abs Immat Gran (auto) Absolute Neuts (auto) Absolute Nucleated RBC Band Neutrophils % Nucleated RBC % Platelet Estimate Clumped Platelets Schistocytes PT INR APTT Activ Coag Time Kaolin Pending Sodium 135 L Potassium 3.6 Chloride 106 Carbon Dioxide 23 Anion Gap 6 BUN 7 L Creatinine 0.47 L Estim Creat Clear Calc 134 Estimated GFR > 60 Glucose 116 H Calcium 8.1 L Magnesium 1.6 Iron 53 TIBC 254 L % Saturation 21 Ferritin 84.00 Total Bilirubin 0.9 AST 210 H ALT 107 H Alkaline Phosphatase 219 H Total Creatine Kinase 483 H Total Protein 7.6 Albumin 3.6 Vitamin B12 315.0 Folate 8.4 TSH (Reflex) 1.540 Phenytoin Hepatitis A IgM Ab Negative Hep Bs Antigen Negative Hep B Core IgM Ab Negative Hepatitis C Ab Screen Negative Discharge Plan Discharge Attending physician on discharge: Seble Juan Consulting providers: Van Marc; Amanda Garcia Discharging Clinician: Seble Juan Anticipated Discharge Date/Time: 02/05/25 13:00 Patient Disposition: Home Activity: may shower and no straining Diet: heart healthy Discharge Instructions: 1. Dr. Gill, the inside meter tester who placed your heart , has written you a prescription for the blood thinner called Plavix. You will take one 75mg tablet daily starting tomorrow when you are at home. You will also follow-up with Dr. Gill in the office since you do not currently see a director of sales support. 2. Make sure to relax and keep it easy the next week especially until you can go to your director of sales support for follow-up, remember, you just had a heart procedure! 3. Make sure to also establish with a new primary care provider (Dr. Anderson) which I have attached below. They will want to see you post discharge so they are up to date on everything that happened during your hospital stay, including your liver diagnosis of cirrhosis. They will likely refer you to a GI (gastrointestinal) provider, but I have also listed some below that around around here: -Tashi Mendoza MD [id number] [phone] -Crescencio Figueredo MD [address], [place], [place] [phone] Also, NO more drinking alcohol. 4. Also per cardiology, they have ordered you an outpatient oil heat technician that you will have placed Friday. You will need to come here Friday to the cardiology office and have that placed. At time of placement, they will go over instructions with you. Continue to check your blood pressure and blood sugar at home if applicable. Keep your scheduled appts with your primary care provider and any specialist that you may see. Return to the emergency department if you develop sudden shortness of breath, chest pain, a fever of greater than 101.5, or nausea, vomiting, abd pain, or diarrhea that does not go away. Follow-up with your primary care provider within 1-2 weeks, they will want to be updated on your inpatient stay in the hospital. Thank you for choosing [facility] for your healthcare needs. Patient Instructions: Clopidogrel (By mouth), Heart Attack (GEN), Heart Healthy Diet (GEN), Antibiotic Form, Metoprolol (By mouth) Patient Language: Fijian Stand Alone Forms: General Discharge Information Follow-up/Referrals: Chano Gill MD [Physician] - 1 Week Alton Anderson MD [Physician] - 2 Weeks Discharge Medications: New clopidogrel [Plavix] 75 mg tablet 75 mg PO DAILY Qty: 90 0RF nitroglycerin [Nitrostat] 0.4 mg Tablet, Sublingual 0.4 mg sublingual Q5MIN PRN (Reason: Chest Pain) 30 Days Qty: 90 3RF metoprolol succinate 50 mg Tablet Extended Release 24 Hr 50 mg PO QAM 30 Days Qty: 30 1RF Continued cyclobenzaprine 10 mg Tablet 5 mg PO TID Qty: 60 0RF atorvastatin 80 mg Tablet 80 mg PO QHS Qty: 30 0RF phenytoin sodium extended [Dilantin Extended] 100 mg Capsule 100 mg PO TID Qty: 90 0RF primidone 250 mg Tablet 500 mg PO BID Qty: 60 0RF aspirin [Children's Aspirin] 81 mg Tablet,Chewable 81 mg PO DAILY@0800 Qty: 30 0RF cholecalciferol (vitamin D3) [Vitamin D3] 25 mcg (1,000 unit) Tablet 25 mcg PO DAILY Qty: 30 0RF Held metoprolol tartrate 50 mg Tablet 50 mg PO DAILY Qty: 60 0RF Hold Instructions: Resume on 02/14/25. Hold until you see director of sales support outpatient appt Date of admission: 02/04/25 01:12 Primary Care Provider: PHYSICIAN,PRISON CLASSIFICATION COUNSELOR Admitting Provider: Yann Zacarias Attending physician on admission: Seble Juan Condition: Stable Quality VTE Prophylaxis VTE prophylaxis: pharmacologic ordered (heparin subQ TID) Hospitalist MIPS Heart Failure (Exclusion) Patient has history of Heart Transplant or Left Ventricular Assistive Device?: No IF YES, STOP HERE Heart Failure (Qualifier) Patient has current or prior documentation of LVEF less than or equal to 40%, or mod/servere depressed LVSF?: No IF NO, STOP HERE
[2025-02-05] MEDS: PRIMIDONE 250 MG TABLET 500 MG PO (08:33)
[2025-02-05] MEDS: CLOPIDOGREL BISULFATE 75 MG TABLET PO (08:33)
[2025-02-05] MEDS: HEPARIN SODIUM 5,000 UNITS/ML VIAL 5000 UNITS SUB-Q (08:33)
[2025-02-05] MEDS: PHENYTOIN SODIUM 100 MG EXTENDED RELEASE CAP PO ×2 (08:33→12:54)
[2025-02-05] MEDS: CHOLECALCIFEROL (VITAMIN D3) 25 MCG (1,000 UNITS) TABLET PO (08:34)
[2025-02-05] MEDS: METOPROLOL SUCCINATE EXT REL 50 MG TABCR PO (08:34)
[2025-02-05] MEDS: ASPIRIN 81 MG CHEWABLE TABLET PO (08:34)
--- NOTE | 2025-02-05 11:40 | PM.PNCARD ---
Progress Note: A&P Assessment and Plan (1) Non-ST elevated myocardial infarction (non-STEMI): Code(s): I21.4 - Non-ST elevation (NSTEMI) myocardial infarction Status: Acute Assessment and Plan: As below (2) Coronary artery disease: Code(s): I25.10 - Atherosclerotic heart disease of [place] coronary artery without angina pectoris Status: Acute Assessment and Plan: Continue aspirin, clopidogrel, metoprolol, atorvastatin (3) Hyperlipidemia: Code(s): E78.5 - Hyperlipidemia, unspecified Status: Acute Assessment and Plan: Continue atorvastatin (4) New onset atrial fibrillation: Code(s): I48.91 - Unspecified atrial fibrillation Status: Acute Assessment and Plan: Had an episode of atrial fibrillation yesterday and has frequent supraventricular ectopy at this point which does increase his risk of going into atrial fibrillation. Outpatient school bus monitor will be ordered he should have that put on Friday. Will not anticoagulate at least at this point to decrease bleeding risk in case the atrial fibrillation is simply transient from his myocardial infarction. Continue metoprolol succinate and anti-platelet regimen (5) Hypokalemia: Code(s): E87.6 - Hypokalemia Status: Acute Assessment and Plan: Potassium 3.4 today. Given atrial fibrillation, KCl 40 mEq p.o. x1 will be provided Okay for discharge Subjective Date/time seen: 02/05/25 11:40 Interval history: Per intake hospitalist: This is a 74-year-old male with history of coronary artery disease and stents, hyperlipidemia, seizure disorder, anxiety, and history of fall who presented to the emergency department for evaluation of jaw, arm, and toe pain. Two days ago he went swimming, leisurely and not for exercise, and after he got of the pool he noticed some discomfort in his jaw. Over the course of the last 2 days he has continued to have intermittent discomfort in the jaw which is now radiating into the left arm and left axilla. The symptoms are similar to those he had prior to coronary stent placement several years ago at [facility] although he did not believe the symptoms were related to his heart as he had a normal stress test done a couple of months ago. He also complains of pain in his left 2nd and 3rd toes and takes a may be broken; last Friday he stubbed them on the handle of a cooler and they have been painful and swollen. He has not had a documented fever but has felt feverish. He denies sinus congestion, sore throat, cough, syncope, near syncope, pleuritic pain, shortness of breath, nausea, vomiting, diarrhea, and dysuria. At the time of my evaluation he is resting comfortably and has no complaints. In the ED: Vital signs on arrival include a temperature of 90.3?, blood pressure 173/86, pulse 105, SpO2 97% on room air. Labs were significant for WBC count of 15.1, hemoglobin 13.4, MCV 102.9, sodium 133, carbon dioxide 20, creatinine 0.54, lactic acid 2.5, total bilirubin 0.7, AST 216, ALT 119, alkaline phosphatase 48, troponin 16.300, proBNP 694. Chest and foot x-rays were unremarkable. EKG showed sinus rhythm showed minimal depression in V2. ED provider spoke with the on-call chief station engineer and the patient was started on a heparin drip and will be NPO for probable cardiac catheterization later today. 02/04: Nursing called around 0815 this AM to alert me that pt was having increase jaw pain (bilateral) and that his 6 hour trop was climbing and now at 24. Stat EKG yielded NSR. Sublingual nitro to be given, per nursing, it took his 6/10 pain down to 4/[address]ached out to Dr. Gill (interventional cards) and left a message. I was able to speak to to Dr. Persaud (cards) to make him aware of the pt and the current scenario, he states that he will take a look at him. Update from nursing, after third nitro, pt reporting a 3/10 pain. Update from nursing, Dr. Persaud to not see the pt due to the chief station engineer group already being consulted. EVELIN Hernandez made contact with bedside RN, Natasha, and states that either her or Dr. Gill will come see the pt. 0925 Dr. Gill called me back and updated me that he saw the pt after Nitro and pt is more comfortable. He also does report that he is still going to take the pt to the pathology laboratory director, around 1100. Updated nursing on the plan. Pt underwent cardiac cath today with stent placement. Due to Brilinta expense, pt will be loaded on Plavix this evening and started tomorrow on daily 75mg Plavix. Date of service 02/05/2025: Anxious to go home for today. Did go in atrial fibrillation with rapid ventricular response yesterday. He did convert out of it with IV metoprolol. Otherwise feels fine has no chest pain, shortness of breath, syncope Review of Systems Review of Systems: All systems reviewed & are unremarkable except as noted in HPI and below ENT: Reports Normal hearing present Cardiovascular: Cardiovascular: Denies chest pain and Denies palpitations Respiratory: Respiratory: Denies hemoptysis Gastrointestinal: Gastrointestinal: Denies abdominal pain Exam Narrative: Alert oriented appears stated age Const: General: comfortable HENMT: Face/Nose/Sinus: Normal nares present Mouth: Yes moist mucous membranes Eyes: General: appearance normal, both eyes and all related structures Sclera: sclerae normal Neck: Neck: supple and no JVD Resp: Effort & Inspection: normal respiratory effort Auscultation: clear to auscultation bilaterally Cardio: Rate: regular rate Rhythm: regular rhythm GI: Inspection: non-distended GI Palp: Yes Soft to palpation Skin: General skin exam: normal color Neuro: Speech: normal speech Extrem: General: no pedal edema Psych: Mental Status: mental status grossly normal Affect: normal affect Objective Data Vital Signs Vital Signs: Vital Signs - 24 hr 02/04/25 13:10 02/04/25 13:15 02/04/25 13:15 Temperature Pulse Rate 105 H Pulse Rate [Bilateral Pedal (Dorsalis Pedis) Doppler] 105 H 105 H Respiratory Rate 18 Blood Pressure 169/95 H Pulse Oximetry 95 Oxygen Delivery Nasal Cannula Oxygen Flow Rate 2 02/04/25 13:30 02/04/25 13:30 02/04/25 13:45 Temperature Pulse Rate 107 H Pulse Rate [Bilateral Pedal (Dorsalis Pedis) Doppler] 107 H 100 Respiratory Rate 14 Blood Pressure 157/122 H Pulse Oximetry 98 Oxygen Delivery Nasal Cannula Oxygen Flow Rate 1 02/04/25 13:45 02/04/25 14:00 02/04/25 14:00 Temperature Pulse Rate 100 97 Pulse Rate [Bilateral Pedal (Dorsalis Pedis) Doppler] 97 Respiratory Rate 19 15 Blood Pressure 169/84 H 130/66 Pulse Oximetry 95 95 Oxygen Delivery Room Air Room Air Oxygen Flow Rate 02/04/25 14:15 02/04/25 14:15 02/04/25 14:30 Temperature Pulse Rate 98 Pulse Rate [Bilateral Pedal (Dorsalis Pedis) Doppler] 98 98 Respiratory Rate 15 Blood Pressure 115/62 Pulse Oximetry 95 Oxygen Delivery Room Air Oxygen Flow Rate 02/04/25 14:30 02/04/25 14:45 02/04/25 14:45 Temperature Pulse Rate 98 99 Pulse Rate [Bilateral Pedal (Dorsalis Pedis) Doppler] 99 Respiratory Rate 12 17 Blood Pressure 132/73 134/73 Pulse Oximetry 98 95 Oxygen Delivery Room Air Room Air Oxygen Flow Rate 02/04/25 15:00 02/04/25 15:00 02/04/25 15:15 Temperature Pulse Rate 98 Pulse Rate [Bilateral Pedal (Dorsalis Pedis) Doppler] 98 96 Respiratory Rate 19 Blood Pressure 135/66 Pulse Oximetry 95 Oxygen Delivery Room Air Oxygen Flow Rate 02/04/25 15:15 02/04/25 15:30 02/04/25 15:45 Temperature Pulse Rate 96 Pulse Rate [Bilateral Pedal (Dorsalis Pedis) Doppler] 98 104 H Respiratory Rate 22 H Blood Pressure 136/78 Pulse Oximetry 98 Oxygen Delivery Room Air Oxygen Flow Rate 02/04/25 15:45 02/04/25 16:00 02/04/25 16:00 Temperature Pulse Rate 104 H 105 H Pulse Rate [Bilateral Pedal (Dorsalis Pedis) Doppler] 103 H Respiratory Rate 21 H 18 Blood Pressure 114/63 115/83 Pulse Oximetry 96 96 Oxygen Delivery Room Air Room Air Oxygen Flow Rate 02/04/25 16:15 02/04/25 16:30 02/04/25 16:30 Temperature Pulse Rate 120 H Pulse Rate [Bilateral Pedal (Dorsalis Pedis) Doppler] 130 H 125 H Respiratory Rate Blood Pressure 133/74 Pulse Oximetry 96 Oxygen Delivery Room Air Oxygen Flow Rate 02/04/25 16:45 02/04/25 16:45 02/04/25 17:00 Temperature Pulse Rate 142 H Pulse Rate [Bilateral Pedal (Dorsalis Pedis) Doppler] 111 H 138 H Respiratory Rate Blood Pressure 131/88 Pulse Oximetry 95 Oxygen Delivery Room Air Oxygen Flow Rate 02/04/25 17:00 02/04/25 17:15 02/04/25 17:15 Temperature Pulse Rate 124 H 133 H Pulse Rate [Bilateral Pedal (Dorsalis Pedis) Doppler] 122 H Respiratory Rate Blood Pressure 135/76 134/82 Pulse Oximetry 94 96 Oxygen Delivery Room Air Room Air Oxygen Flow Rate 02/04/25 17:30 02/04/25 17:30 02/04/25 18:00 Temperature Pulse Rate 124 H 99 Pulse Rate [Bilateral Pedal (Dorsalis Pedis) Doppler] 112 H Respiratory Rate Blood Pressure 137/83 Pulse Oximetry 94 Oxygen Delivery Room Air Oxygen Flow Rate 02/04/25 18:04 02/04/25 18:16 02/04/25 19:11 Temperature 37.7 C H 37.3 C Pulse Rate 130 H 137 H 93 Pulse Rate [Bilateral Pedal (Dorsalis Pedis) Doppler] Respiratory Rate 28 H 18 Blood Pressure 137/77 125/60 Pulse Oximetry 96 94 Oxygen Delivery Oxygen Flow Rate 02/04/25 19:43 02/04/25 19:44 02/04/25 19:44 Temperature Pulse Rate 131 H 131 H Pulse Rate [Bilateral Pedal (Dorsalis Pedis) Doppler] 131 H Respiratory Rate 18 Blood Pressure Pulse Oximetry 94 Oxygen Delivery Room Air Oxygen Flow Rate 02/04/25 20:00 02/04/25 21:00 02/04/25 21:28 Temperature 37.2 C 37.1 C Pulse Rate 139 H 145 H 145 H Pulse Rate [Bilateral Pedal (Dorsalis Pedis) Doppler] Respiratory Rate 20 20 Blood Pressure 122/71 124/81 Pulse Oximetry 97 92 Oxygen Delivery Oxygen Flow Rate 02/04/25 22:09 02/04/25 23:35 02/05/25 00:00 Temperature 36.5 C 36.7 C Pulse Rate 140 H 96 Pulse Rate [Bilateral Pedal (Dorsalis Pedis) Doppler] Respiratory Rate 17 17 Blood Pressure 127/74 124/67 Pulse Oximetry 98 97 Oxygen Delivery Room Air Oxygen Flow Rate 02/05/25 00:00 02/05/25 00:06 02/05/25 02:00 Temperature Pulse Rate 107 H 96 81 Pulse Rate [Bilateral Pedal (Dorsalis Pedis) Doppler] Respiratory Rate Blood Pressure Pulse Oximetry Oxygen Delivery Oxygen Flow Rate 02/05/25 03:30 02/05/25 04:00 02/05/25 04:00 Temperature 36.7 C Pulse Rate 84 79 Pulse Rate [Bilateral Pedal (Dorsalis Pedis) Doppler] Respiratory Rate 16 Blood Pressure 121/70 Pulse Oximetry 97 Oxygen Delivery Room Air Oxygen Flow Rate 02/05/25 06:00 02/05/25 07:55 06/14/25 08:00 Temperature 36.9 C Pulse Rate 87 90 Pulse Rate [Bilateral Pedal (Dorsalis Pedis) Doppler] Respiratory Rate 18 Blood Pressure 120/69 Pulse Oximetry 96 96 Oxygen Delivery Room Air Oxygen Flow Rate 02/05/25 08:34 Temperature Pulse Rate 100 Pulse Rate [Bilateral Pedal (Dorsalis Pedis) Doppler] Respiratory Rate Blood Pressure Pulse Oximetry Oxygen Delivery Oxygen Flow Rate Intake/Output Intake/Output: Intake & Output 02/02/25 02/03/25 02/04/25 02/05/25 23:59 23:59 23:59 23:59 Intake Total 1311.2 Output Total 1000 275 Balance 311.2 -275 Meds/Results Medications: Active Medications Generic Name Dose Route Start Last Admin Trade Name Freq PRN Reason Stop Dose Admin Aspirin 81 mg 02/04/25 08:00 02/05/25 08:34 Aspirin 81 Mg Chewable Tablet PO 81 mg DAILY@0800 [facility] Administration Atorvastatin Calcium 80 mg 02/04/25 21:00 02/04/25 20:02 Atorvastatin 40 Mg Tablet PO 80 mg QHS [facility] Administration Clopidogrel Bisulfate 75 mg 02/05/25 09:00 02/05/25 08:33 Clopidogrel Bisulfate 75 Mg Tablet PO 75 mg QAM [facility] Administration Heparin Sodium (Porcine) 5,000 units 02/04/25 16:45 02/05/25 08:33 Heparin Sodium 5,000 Units/Ml Vial SUB-Q 5,000 units Q8HR [facility] Administration Metoprolol Succinate 50 mg 02/05/25 09:00 02/05/25 08:34 Metoprolol Succinate Ext Rel 50 Mg Tabcr PO 50 mg QAM [facility] Administration Nitroglycerin 0.4 mg 02/04/25 08:11 02/04/25 08:25 Nitroglycerin Sl 0.4 Mg Tablet SUBLINGUAL 0.4 mg Q5MIN PRN Administration Chest Pain Phenytoin Sodium 100 mg 02/04/25 09:00 02/05/25 08:33 Phenytoin Sodium 100 Mg Extended Release Cap PO 100 mg TID [facility] Administration Primidone 500 mg 02/04/25 09:00 02/05/25 08:33 Primidone 250 Mg Tablet PO 500 mg BID [facility] Administration Vitamin D 25 mcg 02/04/25 09:00 02/05/25 08:34 Cholecalciferol (Vitamin D3) 25 Mcg (1,000 Units) Tablet PO 25 mcg DAILY JEMAL Administration Radiology Results: ITS Impressions Chest X-Ray 02/03/25 23:18 IMPRESSION: No acute cardiopulmonary pathology. Foot X-Ray 02/03/25 23:19 IMPRESSION: No acute osseous abnormality left foot. Abdomen Ultrasound 02/04/25 09:03 IMPRESSION: 1: Cirrhosis of the liver. Labs Labs: Laboratory Results - last 24 hr 02/04/25 02/04/25 02/05/25 12:47 17:34 05:14 WBC 19.2 H 14.0 H RBC 3.85 L 3.26 L Hgb 13.4 L 11.4 L Hct 40.2 L 33.9 L MCV 104.4 H 104.0 H MCH 34.8 H 35.0 H MCHC 33.3 33.6 RDW 13.7 13.7 Plt Count 239 216 MPV 9.7 9.5 Immature Gran % (Auto) 0.5 0.4 Neut % (Auto) 79.4 H 71.9 Lymph % (Auto) 5.0 L 10.0 L [place] % (Auto) 14.8 H 17.0 H Eos % (Auto) 0.0 0.4 Baso % (Auto) 0.3 0.3 Lymph # (Auto) 0.95 1.40 [place] # (Auto) 2.8 H 2.4 H Eos # (Auto) 0.0 0.1 Baso # (Auto) 0.1 0.0 Abs Immat Gran (auto) 0.09 H 0.05 H Absolute Neuts (auto) 15.2 H 10.1 H Absolute Nucleated RBC 0.000 0.000 Band Neutrophils % 3 Nucleated RBC % 0.0 0.0 Platelet Estimate Adequate Clumped Platelets Present Schistocytes None seen PT 15.0 H INR 1.2 APTT 37.4 H Activ Coag Time Kaolin 239 H Sodium 133 L Potassium 3.4 Chloride 105 Carbon Dioxide 21 L Anion Gap 7 BUN 10 Creatinine 0.59 L Estim Creat Clear Calc 111 Estimated GFR > 60 Glucose 109 Calcium 7.9 L Total Bilirubin 1.1 AST 157 H ALT 87 H Alkaline Phosphatase 177 H Total Protein 7.2 Albumin 3.4 L Phenytoin 4 L Hepatitis A IgM Ab Negative Hep Bs Antigen Negative Hep B Core IgM Ab Negative Hepatitis C Ab Screen Negative catheterization 1. Left main: The left main coronary artery is widely patent without any significant obstructive disease. 2. Left anterior descending: The LAD provides 1 significant diagonal. The LAD in its proximal to mid body has a patent stent with 10% in-stent restenosis. The remainder of the LAD and its branches have luminal irregularities. 3. Left circumflex: The left circumflex artery is occluded in its proximal body. There are no collaterals to this territory. 4. Right coronary artery: The RCA has mild luminal irregularities without any significant obstructive angiographic disease. The RCA is the dominant vessel. 5. Left ventricle: A. End-diastolic pressure 26 mmHg. B. LV gram deferred. C. No significant gradient across aortic valve on catheter pullback. Successful aspiration thrombectomy and PCI to the proximal left circumflex with a 3.0 x 26mm [place] SUJIT; post dilated with a 3.5 x 20mm NC with excellent angiographic results. Echo EF 60 65% with inferolateral hypokinesis
[2025-02-05] MEDS: POTASSIUM CHLORIDE 20 MEQ ER TABLET 40 MEQ PO (12:55)
== END 2025-02-05 13:20 | disposition home or self-care (01) | DRG 322 ==
LOC: ANHED 02-04 01:11 → ANHIMU 02-04 02:12
PROVIDERS: Internal Medicine; Physician Assistant; Admitting Provider Internal Medicine; Emergency Provider Registered Nurse
PROC: 4A023N7 Measurement of Cardiac Sampling and Pressure, Left Heart, Percutaneous Approach (ICD-10-PCS; CPT 93452; principal; 2025-02-04 11:30)
PROC: 027034Z Dilation of Coronary Artery, One Artery with Drug-eluting Intraluminal Device, Percutaneous Approach (ICD-10-PCS; CPT 92973; 2025-02-04 11:30)
PROC: 027034Z Dilation of Coronary Artery, One Artery with Drug-eluting Intraluminal Device, Percutaneous Approach (ICD-10-PCS; CPT 92928; 2025-02-04 11:30)
DX: I21.4 Non-ST elevation (NSTEMI) myocardial infarction (principal); I25.10 Atherosclerotic heart disease of native coronary artery without angina pectoris; I48.91 Unspecified atrial fibrillation; D53.9 Nutritional anemia, unspecified; E87.6 Hypokalemia; E78.5 Hyperlipidemia, unspecified; K74.60 Unspecified cirrhosis of liver; G40.909 Epilepsy, unspecified, not intractable, without status epilepticus; S90.122A Contusion of left lesser toe(s) without damage to nail, initial encounter; W22.8XXA Striking against or struck by other objects, initial encounter; Z20.822 Contact with and (suspected) exposure to COVID-19; Z95.5 Presence of coronary angioplasty implant and graft; Z79.82 Long term (current) use of aspirin
CPT/HCPCS: 36415; 71045; 73630; 76705; 80053; 80074; 80185; 82077; 82550; 82607; 82728; 82746; 83540; 83550; 83605; 83735; 83880; 84443; 84484; 85025; 85027; 85610; 85730; 87637; 92973; 93005; 93458; 96365; 99285; A9270; C1725; C1757; C1769; C1874; C1887; C1894; C8929; C9600; J1644; J2003; J2250; J2305; J2404; J3010; J7030; J7040; Q9957

== ENCOUNTER 2025-07-11 05:47 | Emergency (ER) | payer MEDICARE, SELFPAY ==
--- NOTE | ~2025-07-11 | CT_ITS ---
EXAM/PROCEDURE: CT femur LT w con HISTORY: left thigh pain while exercising, on eliquis COMPARISON: None available. TECHNIQUE: IV contrast enhanced CT left femur FINDINGS: No acute arterial occlusion. Mild to moderate scattered atherosclerotic calcified plaque disease. The visualized portions of the left external iliac, common femoral, SFA, popliteal, tibial peroneal trunk and runoff arteries are patent with moderate to severe disease incidentally noted in the tibial peroneal trunk. Muscular structures appear intact with no gross deformity to indicate large tear or compartment syndrome. No drainable fluid collection or cortical erosion to confirm osteomyelitis. Moderately severe osteoarthritic changes in the left hip and the left knee. Small joint effusion in left knee. IMPRESSION: 1. No hematoma, abscess or drainable fluid collection. 2. 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 Reviewed, dictated and finalized at location [facility]. [employer]
--- OUTSIDE RECORDS SUMMARY | 2025-07-11 05:50 | XMS_ITS | Clinical Summary ---
Author Organization [facility] Address [address] [place] [address] Phone Care Team Providers Care Stamp Redemption Clerk Name Role Phone Vinicio Diane DO Primary [...] Date Diagnosed Date Resolved Date Atherosclerosis of [place] ronary artery of [place] heart without angina pectoris 12/10/2022 Family History [...] on file Legal Sex Male 3:56 PM ALPINE GUIDE Gender Identity Not on file Sexual Orientation [...] 1-dose 75+ series) 2023 INFLUENZA VACCINE (#1) 2025 COVID-19 Vaccine ( season) 2025 05/13/2021, 10/24/2020, 10/07/2020 DTAP/TDAP/TD VACCINES (2 - T d or Tdap) 02/22/2031 02/22/2021 Insurance MEDICARE PART A AND B BCBS SUPP Advance Directives For more information, please contact: [phone] * Full Code (Latest Code Status on File) Date Activated Date Inactivated Comments 02/27/2023 11:54 AM 02/27/2023 3:31 PM Care Teams Stamp Redemption Clerk Relationship Specialty Start Date End Date Vinicio Diane DO PCP - General Family Practice 08/22/22
--- OUTSIDE RECORDS SUMMARY | 2025-07-11 05:50 | XMS_ITS | Encounter Summary ---
Author Organization [facility] Address [address] [address] Care Team Providers Care Carpet Measurer Name Role Phone Ankush Sweeney MD Unavailable Unavailable David HAYWARD MD, Robert E. Unavailable [phone] Benedicto HAYWARD DO, James R Unavailable [phone] Benedicto HAYWARD DO, James R Primary Care Provider Sarwat Vera [employer] Unavailable + [phone] PcpBella Primary Care Provider Unav ailable Dayanara Gallegos Unavailable [phone] Vicki Dumont Unavailable [phone] Ankush Sweeney MD Unavailable Unavailable David HAYWARD MD, Robert E. Unavailable [phone] Janki Anaya Unavailable Gabriel Cintron MD Unavailable Sarwat Vera [employer] Unavailable + [phone] Janki Anaya Unavailable Encounter Details Date Type Department Care Team (Late st Contact Info) Description 07/05/2022 Lab Requisition [facility] [address] [place] [address] [place] [address] [place] [address] Social History Tobacco Use Types Packs/Day Years Used Date Smoking Tobacco: Former Cigarettes 6 1 09/18/1996 - 08/02/2003 Cigars Smokeless Tobacco: Former Snuff Quit: 07/19/1977 Alcohol Use Standard Drinks/Week Comments Yes 1 (1 standard drink = 0.6 oz pur e alcohol) socially- seldom PHQ-2 Answer Date Recorded PHQ2 TOTAL SCORE 0 04/13/2021 Sex and Gender Information Value Date Recorded Sex Assigned at Male 03/23/2023 6:12 PM CDT Legal Sex Male 4:27 AM LUMBER STRAIGHTENER Gender Identity Male 03/23/2023 6:12 PM CDT Sexual Orientation Straight 03/23/2023 6: 12 PM CDT Occupation Industry Job Start Date Job End Date Retired, 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 No / Unsure 07/01/2022 11:19 AM LUMBER STRAIGHTENER documented as of this encounter Functional Status [...] st Contact Info) Description 07/25/2025 1:40 PM LUMBER STRAIGHTENER Office Visit [facility] [address], [address] [place] [address] [place] [address] [place] [id number] 09/19/2025 1:00 PM LUMBER STRAIGHTENER Office Visit [facility] [address] [place] [address], [place] [address] Keenan Valdivia MD [address] [place] [address] [place] [address] documented as of this encounter Goals Goal Patient Goal Type Associated Problems Recent Progress Patient-Stated? Author Blood Pressure < 140/90 Blood Pressure 136/76(2023 2:06 PM LUMBER STRAIGHTENER) Yeny aMurer Note: Caring for Your High Blood Pressure [...] Where can I go for more information? [place] [employer] National Center: http://www.americanheart.org 1. In the top header, click C onditions . 2. In the top header, click h igh blood pressure. 3. For a printable blood pressure tracker, scroll toward the bottom of the page to Related Tools, and click H BP Trackers. 3-650-JNU-USA-1 or ( ) National Heart, Lung and Blood [place]: http://www.nhlbi.nih.gov/health/infoctr/index.htm Exercise 5X per week (30 min per time) Exercise Yeny Maurer Note: The [place] [employer] recommends all adults [...] Comments DERMATOPATHOLOGY Routine 07/04/2022 12:0 0 AM LUMBER STRAIGHTENER documented in this encounter Results * DERMATOPATHOLOGY (07/04/2022 12:00 AM LUMBER STRAIGHTENER) Case Report Dermatopathology Report Case: [id number] Authorizing Provider: Rg Pete MD Collected: 07/04/2022 12:00 AM Ordering Location: [facility] Received: 07/05/2022 11:38 AM Pathologist: Mini Ontiveros MD Specimen: Skin, posterior neck - left 2 4:36 PM LUMBER STRAIGHTENER DERMATOPATHOLOGY LABORATORY Final Diagnosis Specimen A. SKIN, posterior neck - left: FIBROSING GRANULATION TISSUE (L90.5) (see microscopic description and comment) 2 4:36 PM LUMBER STRAIGHTENER DERMATOPATHOLOGY LABORATORY at [address] LUMBER STRAIGHTENER Clinical History R/O neoplasm of uncertain behavior of skin, cyst, abscess 2 4:36 PM LUMBER STRAIGHTENER DERMATOPATHOLOGY LABORATORY Gross Description Specimen A: Received is one formalin filled container labeled with the patient's name and designated posterior neck - left. The specimen consists of a punch biopsy measuring 4x3x5 mm, bisected. Jar 0. 2 4:36 PM [facility] DERMAT[facility]ORY Microscopic Description Specimen A. [...] Clinical correlation is recommended. 2 4:36 PM [facility] DERMATOP[facility]Y [facility]ORATORY Disclaimer An external and internal positive and negative controls are appropriate for the histochemical, immunohistochemical and immunofluorescence stain(s) in this case (if any), except where stated explicitly. The performance characteristics of the stain(s) cited in this report were developed and its performance characteristic determined by the Dermatopathology Laboratory at [facility], directed by Dr. Amrita Browning. These tests need not be, and therefore are not, approved by the [place] Food and Drug Administration. The tests are used for clinical purposes. Billing Codes Specimen Charges Stain Charges 27975 1 [id number] 1 1 2 4:36 PM [facility] DERMAT[facility]ORY Embedded Images 2 4:36 PM [facility] Pathology/Cytolog y TISSUE SPECIMEN FROM SKIN / Unknown 07/04/2022 07/05/2022 11:38 AM LUMBER STRAIGHTENER Rg Pete MD LAB - PATHOLOGY/CYTOLOGY O RDERABLES Final Result DERMATOPATHOLOGY LABORATORY [facility] - Department of Dermatology [address] [phone] documented in this encounter Visit Diagnoses Not on filedocumented in this encounter Care Teams Carpet Measurer Relationship Specialty Start Date End Date Vinicio Diane III, DO [address] [place] [address] PCP - Attributed-MSSP 04/25/20 2 Vinicio Diane III, DO [address] [place] [address] PCP - General Family Medicine 07/24/22 03/20/23 Sarwat Vera APRN[employer] [address] [place] [address] PCP - Attributed-MSSP 07/25/22 11/23/23 Pcp, Ramón Adam Fm PCP - General 03/21/23 [place] [id number] [address] PCP - Attributed-MSSP 11/24/23 02/22/24 Ankush Sweeney MD PCP - Attributed-MSSP 02/23/24 03/24/24 [place] [address] [place] [phone] PCP - Attributed-MSSP 03/25/24 04/24/24 [place] [id number] [address] PCP - Attributed-MSSP 04/25/24 05/24/24 Sarwat Vera [employer] [address] [place] [address] PCP - Attributed-MSSP 05/25/24 12/10/24 Ankush Sweeney MD Provider Enrollment Specialist Cardiovascular Disease 04/02/12 Douglas Hernandez III, MD [address] [place] [address] Neurologist Neurology 02/06/15 Dayanara Gallegos Care Coordination Specialist Care Management 12/30/23 12/30/23 Janki Anaya Care Coordination Specialist Care Management 07/13/24 07/13/24 Janki Anaya Care Coordination Specialist Care Management 01/25/25 03/11/25 documented as of this encounter
--- OUTSIDE RECORDS SUMMARY | 2025-07-11 05:51 | XMS_ITS | Clinical Summary ---
Author Organization [facility] Address [address] [place] [address] Care Team Providers Care Material Damage Adjuster Name Role Phone Alton Anderson MD Primary Care Provider Allergies Active Allergy Reactions Criticality Noted Date Comments Penicillins Hives,Swelling High 03/26/2010 In patient's 20s Medications aspirin 81 MG chewable tablet Chew 1 tablet (81 mg total) by mouth. Active primidone (MYSOLINE) 250 MG tablet Take 2 tablets (500 mg total) by mouth 2 (two) times daily. 12/31/2024 Active atorvastatin (LIPITOR) 80 MG tablet Take 1 tablet (80 mg total) by mouth. 09/08/2024 Active phenytoin ER (DILANTIN KAPSEALS) 100 MG capsule Take 1 capsule (100 mg total) by mouth 3 (three) times daily. 12/31/2024 Active vitamin D3 (CHOLECALCIFERO L) 25 mcg tablet Take 1 tablet (25 mcg total) by mouth daily. Active clopidogrel (PLAVIX) 75 MG tablet Take 1 tablet (75 mg total) by mouth daily. Active metoprolol succinate ER (TOPROL-XL) 50 MG 24 hr tablet Take 1 tablet (50 mg total) by mouth daily. 03/09/2025 Active Active Problems Problem Noted Date Diagnosed Date Chest pain 03/10/2025 Social History Tobacco Use Types Packs/Day Years Used Date Smoking Tobacco: Never Smokeless Tobacco: Never Tobacco Cessation:Counseling Given: No Alcohol Use Standard Drinks/Week Comments Not Currently 0 (1 standard drink = 0.6 oz pur e alcohol) B1300 Health Literacy Answer Date Recor ded How often do you need to hav e someone help you when you read instructions, pamphlets, or other written material from your doctor or pharmacy? Never 03/10/2025 [facility] Utilities Answer Date Recorded In the past 12 months has e [employer], gas, oil, or water company threatened to shut off services in your home? No 03/10/2025 Humiliation, Afraid, Rape, and Kick questionnair e Answer Date Recorded Within the last year, have y ou been afraid of your partner or ex-partner? No 03/10/2025 Within the last year, have y ou been humiliated or emotionally abused in other ways by your partner or ex-partner? No Within the last year, have y ou been kicked, hit, slapped, or otherwise physically hurt by your partner or ex-partner? No 03/10/2025 Within the last year, have y ou been raped or forced to have any kind of sexual activity by your partner or ex-partner? No 03/10/2025 Social Connection and Isolation Panel Answer Date Recorded In a typical week, how many times do you talk on the phone with family, friends, or neighbors? More than three times a week 03/10/2025 How often do you get togethe r with friends or relatives? More than three times a week 03/10/2025 How often do you attend [facility] or advent services? 1 to 4 times per year 03/10/2025 Do you belong to any clubs o r organizations such as mandaeism groups, unions, fraternal or athletic groups, or school groups? Yes 03/10/2025 How often do you attend meet ings of the clubs or organizations you belong to? More than 4 times per year 03/10/2025 Are you , , di vorced, , never , or living with a partner? 03/10/2025 AUDIT-C Answer Date Recorded Q1: How often do you have a drink containing alcohol? Never 03/10/2025 Q2: How many drinks containi ng alcohol do you have on a typical day when you are drinking? Patient does not drink Q3: How often do you have si x or more drinks on one occasion? Never 03/10/2025 Overall Financial Resource Strain (CARDIA) Answe r Date Recorded How hard is it for you to pa y for the very basics like food, housing, medical care, and heating? Not hard at all 03/10/2025 PHQ-2 Answer Date Recorded Patient Health Questionnaire-2 Score 0 03/10/2025 [facility] - Occupational Stress Questionnaire Answer Date Recorded Do you feel stress - tense, restless, nervous, or anxious, or unable to sleep at night because your mind is troubled all the time - these days? Not at all 03/10/2025 Exercise Vital Sign Answer Date Recorde d On average, how many days pe r week do you engage in moderate to strenuous exercise (like a brisk walk)? 7 days 03/10/2025 On average, how many minutes do you engage in exercise at this level? 60 min 03/10/2025 Hunger Vital Sign Answer Date Recorded Within the past 12 months, y ou worried that your food would run out before you got the money to buy more. Never true 03/10/20 25 Within the past 12 months, t he food you bought just didn't last and you didn't have money to get more. Never true 03/10/2025 PRAPARE - Transportation Answer Date Re corded In the past 12 months, has l ack of transportation kept you from medical appointments or from getting medications? No 02/22 In the past 12 months, has l ack of transportation kept you from meetings, work, or from getting things needed for daily living? No 03/10/2025 Housing Stability Vital Sign Answer Bernard e Recorded In the last 12 months, was t here a time when you were not able to pay the mortgage or rent on time? No 03/10/2025 In the past 12 months, how m any times have you moved where you were living? 0 03/10/2025 At any time in the past 12 m [facility], were you homeless or living in a penitentiary (including now)? No 03/10/2025 Sex and Gender Information Value Date Recorded Sex Assigned at Male 01/11/2025 1:55 PM CDT Legal Sex Male 3:04 PM CDT Gender Identity Not on file Sexual Orientation Not on file Last Filed Vital Signs Vital Sign Reading Time Taken Comments Blood Pressure 124/70 03/10/2025 12:05 PM CDT Pulse 61 03/10/2025 12:05 PM CDT Temperature 36.4 C (97.6 F) 03/10/2025 12:05 PM CDT Respiratory Rate 20 03/10/2025 12:0 5 PM CDT Oxygen Saturation 97% 03/10/2025 12: 05 PM CDT Inhaled Oxygen Concentration - - Weight 100.3 kg (221 lb 1.6 oz) 03/10/2025 4:00 AM CDT Height 180.3 cm (5' 11) 03/10/2025 4:00 AM CDT Body Mass Index 30.84 03/10/2025 4:00 AM CDT Plan of Treatment Health Maintenance Due Date Last Done Comments Zoster Vaccines (1 of 2) 1998 Annual Medicare Wellness Visit 2013 Pneumococcal Vaccine: 50+ Years (2 of 2 - PCV) 11/13/2022 11/13/2021 RSV Immunization or 60+ Years (1 - 1-dose 75+ series) 2023 COVID-19 Vaccine ( season) 2025 07/24/2022, 05/13/2021, 10/24/2020, Additional history exists Influenza Adult (#1) 2025 DTaP, Tdap and Td Vaccines (2 - Td or Tdap) 02/22/2031 02/22/2021 Hepatitis C Completed 02/28/2025, 07/26/2013 PHQ-2 (Physician [place]) Completed 03/10/2025 Hepatitis A Vaccines Aged Out No long er eligible based on patient's age to complete this topic Meningococcal B Vaccine Aged Out No l onger eligible based on patient's age to complete this topic Meningococcal Vaccine Aged Out No darcie peter eligible based on patient's age to complete this topic RSV Immunizations Under 20 Months Aged Out No longer eligible based on patient's age to complete this topic Procedures Procedure Name Priority Date/Time Associated Diagnosis Comments HC HEP C AB Routine 02/28/2025 9:09 AM CDT Hyperlipemia Essential hypertension, malignant Fatigue Screening examination for poliomyelitis Special screening for malignant neoplasm of prostate Impaired fasting glucose from Last 3 Months or Most Recently Relevant to Health Maintenance Results * HEPATITIS C ANTIBODY (02/28/2025 9:09 AM CDT) HEPATITIS C AB NON-REACTI VE NON-REACTI VE 02/28/2025 2:06 PM CDT [facility] 02/28/2025 9:09 AM CDT Alton Anderson MD LABORATORY Final Result [facility] [address] [place] [address], from Last 3 Months or Most Recently Relevant to Health Maintenance Insurance MEDICARE [place] Care Teams Material Damage Adjuster Relationship Specialty Start Date End Date Alton Anderson MD [address] [place] [address] PCP - General FAMILY PRACTICE 03/10/25
--- OUTSIDE RECORDS SUMMARY | 2025-07-11 05:51 | XMS_ITS | Clinical Summary ---
Author Organization [facility] Address [address] [place] [address] Care Team Providers Care Web Development Manager Name Role Phone Ankush Sweeney MD Unavailable Unavailable David HAYWARD MD, Douglas Roblero Unavailable [phone] Pcp, Bella Medina Primary Care Provider Unav ailable Source Comments [facility],non-owned Affiliates and Associated Physician Practices is amultiple site organization consisting of ambulatory clinics and hospital sitesin [place], [place]. 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 05/13/2021 Essential hypertension [...] wrist 10/23/20172020 Coronary artery disease invo lving gakona heart 03/10/2017 05/13/2021 History of arthroscopy of [...] dermatitis due to poison allie 03/26/2010 09/24/2017 Immunizations Immunization Administration Dates Next Due COVID PFIZER BIVALENT 12Y+ 30mcg/0.3ML Covid Pfizer primary monoval ent 12+ yr 0.3mL Purple cap 05/13/2021,10/24/2020,10/07/2020 PNEUMOCOCCAL PPSV23 11/13/2021 TDAP (7yrs+) 02/22/2021 Family History Medical History Relation Name Comments Heart Failure Brother 2 VT<55(male) Brother 3 stated one of h is brothers at age 35 with a heart attack VT<55(male) Brother 4 stated another brother at age 42 with a heart attack CAD (Coronary Artery Disease) Brother 5 another brother has 4 stents in his heart CAD (Coronary Artery Disease) Father Heart Failure Father VT<55(male) Father stated his fath er at age [...] PM CDT Legal Sex Male 4:27 AM WAREHOUSE DISTRIBUTION ASSOCIATE Gender Identity Male 03/23/2023 6:12 PM CDT Sexual Orientation Straight 03/23/2023 6: 12 PM CDT Occupation Industry Job Start Date Job End Date Retired, 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 Not on file Not on file Last Filed Vital Signs Vital Sign Reading Time Taken Comments Blood Pressure 136/76 07/20/2024 2:06 PM WAREHOUSE DISTRIBUTION ASSOCIATE Pulse 66 07/20/2024 2:06 PM WAREHOUSE DISTRIBUTION ASSOCIATE Temperature 36.5 C (97.7 F) 07/20/2024 2:06 PM WAREHOUSE DISTRIBUTION ASSOCIATE Respiratory Rate 18 02/09/2023 3:37 PM CDT Oxygen Saturation 95% 07/20/2024 2:06 PM WAREHOUSE DISTRIBUTION ASSOCIATE Inhaled Oxygen Concentration - - Weight 107.3 kg (236 lb 9.6 oz) 07/20/2024 2:06 PM WAREHOUSE DISTRIBUTION ASSOCIATE Height 177.8 cm (5' 10) 05/12/2024 9:29 AM CDT Body Mass Index 33.95 05/12/2024 9:29 AM CDT Plan of Treatment Upcoming Encounters Date Type Department Care Team (Late st Contact Info) Description 07/25/2025 1:40 PM WAREHOUSE DISTRIBUTION ASSOCIATE Office Visit [facility] [address] [facility], [address] [place] [address] [place] [address] [facility] [address] [place] [id number] 09/19/2025 1:00 PM WAREHOUSE DISTRIBUTION ASSOCIATE Office Visit [facility] [address] [place] [address], [place] [id number] Keenan Valdivia MD [address] [place] [address] [place] [address] Health Maintenance Due Date Last Done Comments ZOSTER VACCINE (1 of 2) 1998 PROSTATE CA SCREENING 05/04/2022 05/04/2021 , 04/21/2020, 09/24/2017, Additional history exists PNEUMOCOCCAL VACCINE 50+ (2 of 2 - PCV) 11/13/2022 11/13/2021 MEDICARE AWV 12 MONTHS 07/24/2023 07/24/2022, 05/04/2021, 04/21/2020 Respiratory Syncytial Virus (RSV) Vaccine Pt: or over 60 yrs (1 - 1-dose 75+ series) 2023 SCREENING FOR DIABETES 05/04/2024 , 04/21/2020, 07/28/2019, Additional history exists DEPRESSION SCREENING 08/25/2024 10/21/2022, 07/24/20 22 COVID-19 VACCINE ( season) 2025 07/24/2022, 05/13/2021, 10/24/2020, Additional history exists INFLUENZA VACCINE (#1) 2025 DTAP/TDAP/TD VACCINES (2 - Td or Tdap) [...] < 140/90 Blood Pressure 136/76(2023 2:06 PM WAREHOUSE DISTRIBUTION ASSOCIATE) Yeny Maurer Note: Caring for Your High [...] Where can I go for more information? [place] [employer] National Center: http://www.americanheart.org 1. In the top header, click C onditions . 2. In the top header, click h igh blood pressure. 3. For a printable blood pressure tracker, scroll toward the bottom of the page to Related Tools, and click H BP Trackers. 0-387-WAV-USA-1 or ( ) National Heart, Lung and Blood [place]: http://www.nhlbi.nih.gov/health/infoctr/index.htm Exercise 5X per week (30 min per time) Exercise Yeny Maurer Note: The [place] recommends all adults [...] HEPATITIS C ANTIBODY Routine 07/26/2013 8:42 AM WAREHOUSE DISTRIBUTION ASSOCIATE Physical exam, annual Need for hepatitis C [...] Resulting Agency Comment Lab Testing performed at: [address] Rohan [place] [id number] Vinicio Benedicto III, DO LAB - CHEMISTRY ORDERABLES Final Result Performing Organization Address City/[facility]/ZIP Co de Phone Number [facility] INSURANCE BILL [address] [place] [address] * PROSTATE SPECIFIC ANTIGEN SCREEN (05/04/2021 2:57 PM CDT) [facility] PSA 0.96 0.00 - 4.00 ng/mL [facility] INSURANCE BILL Blood BLOOD SPECIMEN / Unknown 05/04/2021 2:57 PM CDT 05/04/2021 Narrative Resulting Agency Comment Lab Testing performed at: [address] Rohan [place] [id number] [facility] Benedicto III, DO LAB - CHEMISTRY ORDERABLES Final Result Performing Organization Address City/[facility]/ZIP Co de Phone Number [facility] INSURANCE BILL [address] [place] [address] * HEPATITIS C ANTIBODY (07/26/2013 8:42 AM WAREHOUSE DISTRIBUTION ASSOCIATE) Pathologist [facility] Hepatitis C Antibody NON-REACTI VE NON-REACT [facility] Signal to Cut-Off 0.10 <1.00 [facility] Comment: Test Performed at: [facility] [address] [place] [address] KATIE PRIDE DO,MPH Blood specimen (specimen) BLOOD SPECIMEN / Unknown 07/26/2013 8:42 AM WAREHOUSE DISTRIBUTION ASSOCIATE 07/26/2013 8:43 AM WAREHOUSE DISTRIBUTION ASSOCIATE us Wilfrido Mora DO LAB - CHEMISTRY ORDERABLES Final Result [facility] [id number] [place] [address] from Last 3 Months or Most Recently Relevant to Health Maintenance Insurance [facility] Advance Directives * FULL RESUSCITATION (Latest Code Status on File) Date Activated Date Inactivated Comments 09/09/2012 2:12 AM 09/09/2012 4:21 PM Care Teams Web Development Manager Relationship Specialty Start Date End Date Pcp, Bella Roche PCP - General 03/21/23 Ankush Sweeney MD Autocad Detailer Cardiovascular Disease 04/02/12 Douglas Hernandez III, MD [address] [place] [address] Neurologist Neurology 02/06/15
--- OUTSIDE RECORDS SUMMARY | 2025-07-11 05:51 | XMS_ITS | Clinical Summary ---
Author Organization [facility] Address [address] [place] [address] Care Team Providers Care Registered Radiologic Technologist Name Role Phone David HAYWARD MD, Douglas Roblero Unavailable [phone] Alton Anderson MD Primary Care Provider [phone] Allergies Active Allergy Reactions Criticality Noted Date Comments Penicillins Swelling Medium 04/26/2015 Medications nitroglycerin (NITROSTAT) 0.[address] 1 tablet (0.4 mg total) under the tongue every 5 (five) minutes as needed 4 Active cholecalciferol (VITAMIN D-3) 2000 unit capsule Take 1 capsule (2,000 Units total) by mouth daily 5 Active cyclobenzaprine (FLEXERIL) 5 mg tablet Take 1 tablet (5 mg total) by mouth 3 (three) times a day 5 Active Additional Information Patient not taking.Reported on 05/24/2025 HYDROcodone-acet aminophen (NORCO) 7.5-325 mg per tabletIndication s:Pain Take 1 tablet by mouth every 4 (four) hours as needed for pain 5 Active Additional Information Patient not taking.Reported on 05/24/2025 lidocaine (LIDODERM) 5 % Place 1 patch on the skin daily for 12 hours Remove & discard patch within 12 hours or as directed by MD. 5 Active Additional Information Patient not taking.Reported on 05/24/2025 polyethylene glycol (MIRALAX) 17 gram/dose bulk powderIndication s:constipation Take 17 g by mouth daily Active Additional Information Patient not taking.Reported on 05/24/2025 clopidogreL (PLAVIX) 75 mg tablet Take 1 tablet (75 mg total) by mouth daily 90 tablet 3 5 Active metoprolol XL (TOPROL-XL) 50 mg extended release tablet Take 1 tablet (50 mg total) by mouth daily 90 tablet 3 5 Active apixaban (ELIQUIS) 5 mg tablet Take 1 tablet (5 mg total) by mouth 2 (two) times a day 60 tablet 11 5 Active rosuvastatin (CRESTOR) 5 mg tablet Take 1 tablet (5 mg total) by mouth daily 30 tablet 11 5 04/07/20 26 Active phenytoin ER (DILANTIN) 100 mg ER capsuleIndicatio ns:Partial epilepsy with impairment of consciousness, intractable (HCC) Take 1 capsule (100 mg total) by mouth 3 (three) times a day 270 capsule 3 5 05/09/20 26 Active primidone (MYSOLINE) 250 mg tabletIndication s:Partial epilepsy with impairment of consciousness, intractable (HCC) Take 2 tablets (500 mg total) by mouth 2 (two) times a day 360 tablet 3 5 05/09/20 26 Active Active Problems Problem Noted Date Diagnosed Date Status post insertion of drug eluting coronary a rtery stent 05/24/2025 Seizure disorder 12/25/2024 Assessment & Plan (12/29/2024 [...] hospital -Follow his neurologist Dr Hernandez at [facility] on discharge - neurology consulted, refer to [...] hospital -Follow his neurologist Dr Hernandez at [facility] on discharge - neurology consulted, refer to fall plan Assessment & Plan (12/27/2024 5:02 PM [...] hospital -Follow his neurologist Dr Hernandez at [facility] on discharge - neurology consulted, refer to [...] Assessment & Plan (12/29/2024 7:52 AM CDT): home aspirin -hold metoprolol BID given normotensive Assessment & Plan (12/28/2024 7:39 AM CDT): home aspirin -hold metoprolol BID given normotensive Assessment & Plan (12/27/2024 5:02 PM CDT): home aspirin -hold metoprolol BID given normotensive Assessment & Plan (12/26/2024 4:54 PM CDT): home aspirin -hold metoprolol BID given normotensive Assessment & Plan (12/25/2024 10:46 AM CDT): home aspirin , metoprolol Assessment & Plan (12/25/2024 2:16 AM CDT): home aspirin , metoprolol Hyperlipidemia, unspecified 12/25/2024 [...] is medically ready for discharge. Discharge to [facility] today. Assessment & Plan (12/28/2024 4:40 [...] Encounters Date Type Department Care Team Description 05/24/2025 10:15 AM CDT Office Visit [facility] Cardiology at [address] [place] [address] Rg Burgess MD Coronary artery disease involving mechoopda coronary artery of mechoopda heart without angina pectoris (Primary Dx); Status post insertion of drug eluting coronary artery stent 05/09/2025 2:00 PM CDT Office Visit [facility]ile[facility] 6th [place] [address] [place] [address] Douglas Hernandez III, MD Partial epilepsy with impairment of consciousness, intractable (HCC) (Primary Dx) from Last 3 Months Surgical History Surgery Date Site/Laterality Comments COLON SURGERY UPPER GASTROINTESTINAL ENDOSCOPY CATARACT EXTRACTION 1994 Medical History Medical History Date Comments Dysphagia Coronary artery disease Hyperlipidemia Seizures (HCC) Cataract Arthritis Prosthetic eye globe right eye History of coronary artery stent placement x2 Heart disease 01/2008 Family History Medical History Relation Name Comments Early Brother Chris Early Father Missael Heart disease Sister Gin Relation Name Status Comments Brother Chris Alive Father Missael Alive Sister Gin Alive Social History Tobacco Use Types Packs/Day Years Used Date Smoking Tobacco: Former Smokeless Tobacco: Never Tobacco Cessation:Counseling Given: Not Answered Alcohol Use [...] on file Legal Sex Male 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 Gender Identity Not on file Sexual Orientation Not on file Last Filed Vital Signs Vital Sign Reading Time Taken Comments Blood Pressure 138/82 05/24/2025 9:45 AM CDT Pulse 97 05/24/2025 9:45 AM CDT Temperature 36.9 C (98.4 F) 12/29/2024 3:23 PM CDT Respiratory Rate 20 12/29/2024 3:23 PM CDT Oxygen Saturation 98% 05/24/2025 9:45 AM CDT Inhaled Oxygen Concentration - - Weight 106.6 kg (235 lb) 05/24/2025 9:45 AM CDT Height 180.3 cm (5' 11) 05/24/2025 9:45 AM CDT Body Mass Index 32.78 05/24/2025 9:45 AM CDT Plan of Treatment Health Maintenance Due Date Last Done Comments Depression Screening 1950 Hepatitis C Screening 1948 Hepatitis B Screening 1966 Zoster Vaccine (1 of 2) 1998 Well Visit 65+ 2013 Pneumococcal vaccine 65+ (2 of 2 - PCV) 11/13/2022 11/13/2021 Covid-19 Vaccine ( season) 2025 05/13/2021, 10/24/2020, 10/07/2020 Influenza Vaccine (#1) 2025 Fall Risk Assessment 12/29/2025 12/29/2024 DTaP/Tdap/Td Vaccine (2 - Td or Tdap) 02/22/203108/2020 Abdominal Aortic Aneurysm (A AA) Screen Completed 05/03/2020 Insurance MEDICARE [place] MEDIC[place] SUPPLEMENT [place] MEDICARE SUPPLEMENT MEDICARE Advance Directives For more information, please contact: [phone] * Full Code (Latest Code Status on File) Date Activated Date Inactivated Comments 12/24/2024 10:36 PM 12/29/2024 10:40 PM Care Teams Registered Radiologic Technologist Relationship Specialty Start Date End Date Alton Anderson MD [address] [place] [id number] PCP - General Family Medicine 03/09/25 Douglas Hernandez III, MD [address] [place] [address] Referring Physician Neurology 12/29/24
[2025-07-11 05:52] VITALS: BP 165/67; PULSE 77; RESP 20; TEMP 36.3; O2SAT 100
[2025-07-11 08:33] VITALS: BP 137/76; PULSE 65; RESP 20; O2SAT 96
--- NOTE | 2025-07-11 08:56 | ED.EXTPRO ---
HPI - Extremity Problem General Chief complaint: Extremity Problem,Nontraumatic Stated complaint: L thigh pain Time Seen by Provider: 07/11/25 08:49 History of Present Illness HPI Narrative: 74-year-old male presenting to the emergency department for evaluation for worsening left thigh pain. Patient states he was exercising and doing squats on Friday when he was standing up from a squat he felt a sharp pain in his left anterior thigh. Patient does suspect that he sore muscle. Patient reports increased pain since that time. Patient denies any pain or swelling of the lower extremity below the knee and denies any injury of the knee. Patient states he did not fall and did not strike his head. Related Data Allergies Allergy/AdvReac Type Severity Reaction Status Date / Time Penicillins Allergy Intermediate Swelling Verified 07/11/25 05:57 Review of Systems Review of Systems: All systems reviewed & are unremarkable except as noted in HPI and below PMFSH Past Medical History Medical History (Updated 07/11/25 @ 12:35 by Matthew Rosales MD) Hyperlipidemia Coronary artery disease Seizure disorder Surgical History Surgical History (Updated 02/04/25 @ 04:02 by Wanda Storm PA-C) History of spinal surgery for fractures of T7 through T10 History of cardiac catheterization Family History Family History Father CAD (coronary artery disease) Father Hypertension Social History Social History (Updated 02/04/25 @ 04:03 by Wanda Storm PA-C) Social History: Surrogate medical decision maker: Prema Fowler, daughter ([phone]). Code status: Full code. Smoking status: Never smoker Alcohol intake: former Substance use: former Do You Feel Safe in your Home?: Yes Lack of Transportation: No Lack of Food: Never True Current Housing: I Have Housing Concerned About Future Housing: No Difficulty Paying Gas/Electric Bills: No Difficulty Paying for Meds: No Currently Unemployed: No Education: Trade/Vocational Certificate Difficulty w/ Childcare or Family Care: No Spiritual care concerns: No Exam Narrative: APPEARANCE: Well appearing, no pain, no distress, well-nourished. HEAD: normocephalic, atraumatic. EYES: PERRLA/EOMI, conjunctivae clear. NOSE: Normal no drainage EARS:TMS clear with good light reflex. THROAT: Pharynx clear, no exudate. NECK: Supple. No adenopathy, no masses. RESPIRATORY: Airway patent, respirations nonlabored. Clear to auscultation bilaterally, no rales, rhonchi, wheezing. CARDIOVASCULAR: Regular rate and rhythm without murmurs rubs or gallops. ABDOMINAL: Soft, nontender, nondistended, normal bowel sounds MUSCULOSKELETAL: Left thigh tenderness to palpation, no tenderness to left knee or left lower extremity, no significant ecchymosis, no pain with passive range of motion of the left hip NEURO: Alert. Cranial nerves II through XII intact. Good gait. Good coordination SKIN: Warm, dry. Normal Color Course Vital Signs Vital signs: Vital Signs Temperature 97.3 F L 07/11/25 05:52 Pulse Rate 77 07/11/25 05:52 Respiratory Rate 20 07/11/25 05:52 Blood Pressure 165/67 H 07/11/25 05:52 Pulse Oximetry 100 07/11/25 05:52 Oxygen Delivery Room Air 07/11/25 05:52 Temperature 97.3 F L 07/11/25 05:52 Pulse Rate 74 07/11/25 12:30 Respiratory Rate 20 07/11/25 12:30 Blood Pressure 133/68 07/11/25 12:30 Pulse Oximetry 95 07/11/25 12:30 Oxygen Delivery Room Air 07/11/25 05:52 MDM - Extremity (Nontraumatic) MDM Narrative Medical decision making narrative: 24-year-old male presents emergency department for evaluation for left thigh pain. Patient is afebrile and leukocytosis hemoglobin 13.3 platelets of 254. INR 1.2 but patient is on Eliquis. CT scan shows no large hematoma. Patient will be provided medication for pain control at home and patient was advised to utilize a walker. Patient does follow-up with Dr. Anderson. Suspect patient has a muscle strain was concern for underlying hematoma or complete muscle tear. Patient was comfortable with plan for discharge and close follow-up. Differential Diagnosis Differential diagnosis: Likely superficial thrombophlebitis, lower extremity edema, deep vein thrombosis of lower extremity and other (Hematoma, muscle strain, muscle tear) Lab Data 07/11/25 09:01 07/11/25 09:01 Labs: Lab Results 07/11/25 Range/Units 09:01 WBC 7.6 (4.5-10.0) K/mm3 RBC 3.88 L (4.6-6.20) M/mm3 Hgb 13.3 L (14.0-18.0) g/dL Hct 39.5 L (42.0-52.0) % MCV 101.8 H (80-100) fl MCH 34.3 H (26-34) pg MCHC 33.7 (32-36) g/dl RDW 13.2 (11.5-14.5) % Plt Count 254 (150-375) k/mm3 MPV 9.3 (7.4-10.4) fl Immature Gran % (Auto) 0.3 (0-0.5) % Neut % (Auto) 68.1 (45.5-73.1) % Lymph % (Auto) 15.1 L (18.3-44.2) % [place] % (Auto) 14.0 H (2.6-8.5) % Eos % (Auto) 2.0 (0-4.4) % Baso % (Auto) 0.5 (0.2-1.2) % Lymph # (Auto) 1.14 (0.9-3.2) K/mm3 [place] # (Auto) 1.1 H (0.1-0.6) K/mm3 Eos # (Auto) 0.2 (0-0.3) K/mm3 Baso # (Auto) 0.0 (0.0-0.1) K/mm3 Abs Immat Gran (auto) 0.02 (0.00-0.031) K/mm3 Absolute Neuts (auto) 5.1 (1.3-6.7) K/mm3 Absolute Nucleated RBC 0.000 (0.0-0.012) K/mm3 Nucleated RBC % 0.0 (0.0-0.2) % PT 15.2 H (11.1-14.7) Seconds INR 1.2 APTT 31.0 (22.3-36.8) Seconds Sodium 136 L (137-145) mmol/L Potassium 3.9 (3.4-5.0) mmol/L Chloride 104 (98-107) mmol/L Carbon Dioxide 26 (22-30) mmol/L Anion Gap 6 (4-12) mmol/L BUN 11 (9-20) mg/dL Creatinine 0.55 L (0.7-1.3) mg/dL Estim Creat Clear Calc 116 ml/min Estimated GFR > 60 (59 - ) Glucose 105 (65-110) mg/dL Calcium 8.4 (8.4-10.2) mg/dL Total Bilirubin 0.7 (0.2-1.3) mg/dL AST 36 (17-59) U/L ALT 40 (6-50) U/L Alkaline Phosphatase 161 H (38-126) U/L Total Protein 8.3 H (6.3-8.2) g/dL Albumin 4.1 (3.5-5.1) g/dL Imaging Data Radiologist's impression: Impressions Femur CT 07/11/25 09:58 IMPRESSION: 1. No hematoma, abscess or drainable fluid collection. 2. 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 Discharge Plan Discharge Clinical Impression: Leg strain Patient Disposition: Home Condition: Stable Instructions: Antibiotic Form Additional Instructions: [place] for pain control. muscle relaxant for muscle spasm. Utilize a walker for limited weight-bearing on the affected leg. Have close follow-up with your primary care physician. If you have any worsening symptoms then please call or return to the emergency department. Patient Language: Wolof Prescriptions: New cyclobenzaprine 10 mg tablet 10 mg PO BID PRN (Reason: muscle spasm) Qty: 14 0RF hydrocodone-acetaminophen 5-325 mg tablet 1 tablet PO Q12H PRN (Reason: pain) Qty: 14 0RF (DME) walker Misc See Rx Instructions .Route Qty: 1 0RF Rx Instructions: As directed No Action clopidogrel [Plavix] 75 mg tablet 75 mg PO DAILY Qty: 90 0RF nitroglycerin [Nitrostat] 0.4 mg Tablet, Sublingual 0.4 mg sublingual Q5MIN PRN (Reason: Chest Pain) 30 Days Qty: 90 3RF metoprolol succinate 50 mg Tablet Extended Release 24 Hr 50 mg PO QAM 30 Days Qty: 30 1RF cyclobenzaprine 10 mg Tablet 5 mg PO TID Qty: 60 0RF atorvastatin 80 mg Tablet 80 mg PO QHS Qty: 30 0RF phenytoin sodium extended [Dilantin Extended] 100 mg Capsule 100 mg PO TID Qty: 90 0RF primidone 250 mg Tablet 500 mg PO BID Qty: 60 0RF metoprolol tartrate 50 mg Tablet 50 mg PO DAILY Qty: 60 0RF aspirin [Children's Aspirin] 81 mg Tablet,Chewable 81 mg PO DAILY@0800 Qty: 30 0RF cholecalciferol (vitamin D3) [Vitamin D3] 25 mcg (1,000 unit) Tablet 25 mcg PO DAILY Qty: 30 0RF Follow-up/Referrals: Alton Anderson MD [Physician, Family Practice] PHYSICIAN,DRYERMAN/WOMAN [Primary Care Provider, Internal Medicine] Ned Mcintyre MD [Physician, Orthopedics]
[2025-07-11 09:07] LABS: Hematocrit 39.5 % (42.0-52.0); Hemoglobin 13.3 g/dL (14.0-18.0); Immature Granulocyte Percent A 0.3 % (0-0.5); Lymphocytes Absolute Auto 1.14 K/mm3 (0.9-3.2); Mean Corpuscular HGB Conc 33.7 g/dl (32-36); Mean Corpuscular Hemoglobin 34.3 pg (26-34); Mean Corpuscular Volume 101.8 fl (80-100); Nucleated Red Blood Cells Absolute Auto 0.000 K/mm3 (0.0-0.012); Nucleated Red Blood Cells Perc 0.0 % (0.0-0.2); Platelet Count Result 254 k/mm3 (150-375); Red Blood Count 3.88 M/mm3 (4.6-6.20); White Blood Count 7.6 K/mm3 (4.5-10.0)
[2025-07-11] MEDS: MORPHINE SULFATE (*CRX) 4 MG/ML INJ 2 MG IV PUSH (09:16)
[2025-07-11 09:17] VITALS: BP 140/67; PULSE 62; RESP 16; O2SAT 98
[2025-07-11 09:21] LABS: INR 1.2; Prothrombin Time 15.2 Seconds (11.1-14.7)
[2025-07-11 09:22] LABS: Partial Thromboplastin Time 31.0 Seconds (22.3-36.8)
[2025-07-11 09:25] LABS: Alanine Aminotransferase 40 U/L (6-50); Albumin Level 4.1 g/dL (3.5-5.1); Alkaline Phosphatase 161 U/L (38-126); Anion Gap 6 mmol/L (4-12); Aspartate Amino Transferase 36 U/L (17-59); Bilirubin,Total 0.7 mg/dL (0.2-1.3); Blood Urea Nitrogen 11 mg/dL (9-20); Calcium 8.4 mg/dL (8.4-10.2); Carbon Dioxide 26 mmol/L (22-30); Chloride 104 mmol/L (98-107); Estimated CRCL calculation 116 ml/min; Estimated Glomerular Filt Rate > 60; Glucose 105 mg/dL (65-110); Potassium 3.9 mmol/L (3.4-5.0); Sodium 136 mmol/L (137-145); Total Protein 8.3 g/dL (6.3-8.2)
[2025-07-11] MEDS: HYDROcodone/acetaminophen (*CRX) 5-325 MG TABLET 1 TAB PO (12:13)
[2025-07-11 12:30] VITALS: BP 133/68; PULSE 74; RESP 20; O2SAT 95
== END 2025-07-11 12:56 | disposition home or self-care (01) ==
PROVIDERS: Emergency Provider Emergency Medicine
DX: S76.912A Strain of unspecified muscles, fascia and tendons at thigh level, left thigh, initial encounter (principal); E78.5 Hyperlipidemia, unspecified; I25.10 Atherosclerotic heart disease of native coronary artery without angina pectoris; G40.909 Epilepsy, unspecified, not intractable, without status epilepticus; X50.3XXA Overexertion from repetitive movements, initial encounter; Y93.B9 Activity, other involving muscle strengthening exercises
CPT/HCPCS: 36415; 73701; 80053; 85025; 85610; 85730; 96374; 99284; A9270; J2270; Q9967